=== PATIENT | male | born 1960 | race Caucasian/White ===

== ENCOUNTER 2017-03-09 15:00 | Emergency (ER) | payer MEDICARE ==
[2017-03-09 15:29] LABS: #Basophils 0.2 thou/uL (0.0-0.2); #Eosinphils 1.2 thou/uL (0.0-0.7); #Lymphocytes 3.4 thou/uL (1.20-3.40); #Monocytes 0.9 thou/uL (0.11-0.59); #Neutrophils 10.1 thou/uL (1.40-6.50); %Eosinophils 7.4 % (0.0-10.0); %Lymphocytes 21.4 % (21.0-51.0); %Monocytes 5.6 % (0.0-10.0); %Neutrophils 64.6 % (42.0-75.0); Hemoglobin 13.5 g/dL (14.0-18.0); Mean Corpuscular Hemoglobin 31.5 pg (27.0-31.0); Mean Corpuscular Volume 92.8 fl (80.0-94.0); Mean Platelet Volume 7.2 fL (7.4-10.4); Platelet Count 323 thou/uL (130-400); RBC Distribution Width 10.9 % (11.5-14.5); Red Blood Cell (RBC) Count 4.28 mill/uL (4.70-6.10); White Blood Cell (WBC) Count 15.6 thou/uL (4.8-10.8)
--- NOTE | 2017-03-09 15:38 | RAD ---
CHEST ONE VIEW: History: Chest pain. Comparison: 11-22-16 FINDINGS: Cardiac silhouette is magnified by projection. Pulmonary vasculature is upper limits of normal and ac centuated by shallow inspiration. Mediastinum is midline with post-op changes and aortic calcificatio n. Nodular densities projecting over the right chest correlate with the granuloma demonstrated on int erval CT exam. There is no lobar consolidation or evidence of pneumothorax. IMPRESSION: Chronic type findings appear stable. POS: [facility]
[2017-03-09 15:40] LABS: ALT (SGPT) 13 U/L (8-55); AST (SGOT) 17 U/L (5-34); Albumin 3.1 g/dL (3.5-5.0); Alkaline Phosphatase 89 U/L (40-150); Anion Gap 15 mmol/L (10-20); BUN (Urea Nitrogen) 39 mg/dL (8.4-25.7); Bilirubin, Total 0.2 mg/dL (0.2-1.2); CK (CPK) 267 U/L (30-200); Calc. Creatinine Clearance 0 mL/min (70-130); Calcium 9.3 mg/dL (7.8-10.44); Carbon Dioxide 19 mmol/L (22-29); Chloride 110 mmol/L (98-107); Estimated GFR-MDRD 32; Globulin 3.6 g/dL (2.4-3.5); Glucose 188 mg/dL (70-105); Potassium 4.4 mmol/L (3.5-5.1); Protein, Total 6.7 g/dL (6.0-8.3); Sodium 140 mmol/L (136-145)
[2017-03-09 15:42] LABS: CKMB 4.5 ng/mL (0-6.6); Troponin I 0.028 ng/mL (< 0.028)
[2017-03-09] MEDS ORDERED: Doxycycline Hyclate 100 MG TAB ONE (16:19)
[2017-03-09 18:24] LABS: Troponin I 0.031 ng/mL (< 0.028)
== END 2017-03-09 18:57 | disposition home or self-care (01) ==
LOC: SCSER 15:00
DX: I25.10 Atherosclerotic heart disease of native coronary artery without angina pectoris (principal); I12.9 Hypertensive chronic kidney disease with stage 1 through stage 4 chronic kidney disease, or unspecified chronic kidney disease; E11.22 Type 2 diabetes mellitus with diabetic chronic kidney disease; N18.3 Chronic kidney disease, stage 3 (moderate); E11.9 Type 2 diabetes mellitus without complications; J40 Bronchitis, not specified as acute or chronic; J32.9 Chronic sinusitis, unspecified; E78.5 Hyperlipidemia, unspecified; B19.20 Unspecified viral hepatitis C without hepatic coma; F41.9 Anxiety disorder, unspecified; F32.9 Major depressive disorder, single episode, unspecified; F17.210 Nicotine dependence, cigarettes, uncomplicated; Z76.1 Encounter for health supervision and care of foundling; Z95.1 Presence of aortocoronary bypass graft; Z79.899 Other long term (current) drug therapy; Z79.82 Long term (current) use of aspirin
CPT/HCPCS: 71045; 80053; 82553; 83880; 84484; 85025; 93005; 94760; 99406

== ENCOUNTER 2017-12-29 18:46 | Inpatient (IN) | payer MEDICARE ==
[2017-12-29] MEDS ORDERED: Furosemide 40 MG/4 ML VIAL ONE (19:54)
[2017-12-29 20:42] LABS: Troponin I 0.044 ng/mL (< 0.028)
[2017-12-29] MEDS ORDERED: Dextrose 50% Abboject 50 ML SYRINGE SLOW IVP PRN (21:30)
[2017-12-29] MEDS ORDERED: Senokot S 8.6-50 MG TAB PO PRN (21:30)
[2017-12-29] MEDS ORDERED: Dextrose 5% in Water 1,000 ML IV PRN (21:30)
[2017-12-29] MEDS ORDERED: Insulin Regular 300 UNITS/3 ML VIAL SC PRN (21:46)
[2017-12-29] MEDS ORDERED: hydrOXYzine 10 MG TAB PO PRN (21:59)
--- NOTE | 2017-12-29 22:13 | PDOC.FPRHP ---
- History of Present Illness Chief Complaint: SOB, leg swelling History of Present Illness: 57 yo M presented to [facility] ED for acute onset of BLE swelling and SOB starting yesterday. Yesterday morning he noticed bilateral lower leg swelling and felt SOB worse with exertion but no associated cough or recent orthopnea. He has a PMH of ID x1 with 5V CABG and stents x10. He denies chest pain, but has mid- back pain present at rest he has had for a a few weeks, non-exertional. States it feels different from prior ID episodes. No associated diaphoresis, nausea. He also has CKD4 in which he follows with Dr. Coronado. Is not on HD and not on lasix at this point. Dr. Coronado was notified from the ED who recommended continued diuresing with lasix and overnight observation. In addition, he was given the dx of pancreatitis in the [facility] ED with a lipase of 262. Patient endorses some diffuse abdominal pain, but no nausea and good po tolerance. No prior pancreatitis episodes in the past. ED Course: IV Lasix 40mg x1 - Allergies/Adverse Reactions Allergies Allergy/AdvReac Type Severity Reaction Status Date / Time No Known Allergies Allergy Verified 12/30/17 00:19 - Home Medications Medication Instructions Recorded Confirmed Type Amlodipine [Norvasc] 5 mg PO QPM 12/30/17 12/30/17 History Amlodipine [Norvasc] 10 mg PO QAM 12/30/17 12/30/17 History Aspirin [Aspirin Chewable] 81 mg PO DAILY 12/30/17 12/30/17 History Atorvastatin Calcium 40 mg PO DAILY 12/30/17 12/30/17 History Gabapentin 300 mg PO DAILY 12/30/17 12/30/17 History Metoprolol Succinate 25 mg PO DAILY 12/30/17 12/30/17 History [place]-3 Fatty Acids/Fish Oil 1 cap PO DAILY 12/30/17 12/30/17 History [[place] 3 1,000 mg Softgel] Sodium Bicarbonate 325 mg PO DAILY 12/30/17 12/30/17 History glipiZIDE [glipiZIDE ER] 5 mg PO DAILY 12/30/17 12/30/17 History - History PMHx:ID x1, DM, CKD4, HTN, COPD, HLD, Hep C PSHx: 5V CABG, Stents x1, cataracts, abdominal hernia repair, cholecstectomy FHx:non contributory Social: Former smoker (last cigarette this past Tuesday), occasional EtOH, former IV drug user - Review of Systems General: reports: weight/appetite/sleep changes. denies: fever/chills Eyes: reports: vision changes. denies: eye pain ENT: denies: nasal congestion, rhinorrhea Respiratory: reports: shortness of breath. denies: cough Cardiovascular: reports: edema, orthopnea. denies: chest pain Gastrointestinal: reports: abdominal pain. denies: nausea, vomiting Genitourinary: denies: incontinence, dysuria Skin: reports: rashes, itching Musculoskeletal: denies: tenderness, stiffness Neurological: denies: syncope, seizure Psychological: reports: anxiety, depression - Vital signs BP: [170/86] HR: [47] RR: [17] Tmax: [98.3] Pox: [98]% on [RA] Wt: [98] - Physical Exam Constitutional: NAD, awake, alert and oriented HEENT: normocephalic and atraumatic, PERRLA, EOMI, conjunctiva clear Neck: supple, FROM Chest: no-tender to palpation Heart: RRR, normal S1/S2 Lungs: CTAB, no respiratory distress, good air movement Abdomen: soft -Abdomen: ventral hernia at upper abdomen, non tender to palpation. diffuse, mild pain in all quadrants, not exceptionally tender to palpation. no peritoneal signs. Musculoskeletal: normal structure, normal tone -Musculoskeletal: BLE: 2+ pitting edema from feet and up to lower back Neurological: no focal deficit Skin: capillary refill <2 seconds, other -Skin: pruritis around neck and near axillae with minor exocriations from pruritis Heme/Lymphatic: no unusual bruising or bleeding Psychiatric: other (depressed affect) FMR H&P: Results - Labs Result Diagrams: 12/30/17 04:12 12/30/17 04:12 - Radiology Interpretation Chest x-ray Status: image reviewed by me, report reviewed by me FMR H&P: A/P - Problem List (1) Edema Current Visit: Yes Status: Acute Code(s): R60.9 - EDEMA, UNSPECIFIED (2) CKD (chronic kidney disease) stage 4, GFR 15-29 ml/min Current Visit: Yes Status: Acute Code(s): N18.4 - CHRONIC KIDNEY DISEASE, STAGE 4 (SEVERE) (3) Sinus bradycardia Current Visit: Yes Status: Acute Code(s): R00.1 - BRADYCARDIA, UNSPECIFIED (4) Hypertension Current Visit: Yes Status: Acute Code(s): I10 - ESSENTIAL (PRIMARY) HYPERTENSION (5) Diabetes Current Visit: Yes Status: Acute Code(s): E11.9 - TYPE 2 DIABETES MELLITUS WITHOUT COMPLICATIONS (6) COPD (chronic obstructive pulmonary disease) Current Visit: Yes Status: Acute (7) Depression Current Visit: Yes Status: Acute Code(s): F32.9 - MAJOR DEPRESSIVE DISORDER , SINGLE EPISODE, UNSPECIFIED (8) Pruritic rash Current Visit: Yes Status: Acute Code(s): L28.2 - OTHER PRURIGO (9) History of ID (myocardial infarction) Current Visit: Yes Status: Acute Code(s): I25.2 - OLD MYOCARDIAL INFARCTION (10) History of heart artery stent Current Visit: Yes Status: Acute Code(s): Z95.5 - PRESENCE OF CORONARY ANGIOPLASTY IMPLANT AND GRAFT (11) CAD (coronary artery disease) Current Visit: Yes Status: Acute Code(s): I25.10 - ATHSCL HEART DISEASE OF [place] CORONARY ARTERY W/O ANG PCTRS (12) HLD (hyperlipidemia) Current Visit: Yes Status: Acute Code(s): E78.5 - HYPERLIPIDEMIA, UNSPECIFIED (13) Elevated lipase Current Visit: Yes Status: Acute Code(s): R74.8 - ABNORMAL LEVELS OF OTHER SERUM ENZYMES - Plan 57 yo M with extensive cardiac history and CKD4 with new onset peripheral edema #Suspected CHF -2/2 acute renal failure vs. ischemic cardiomyopathy -No official prior dx of CHF but today elevated BNP from baseline (1091 from 397 ). Will obtain echo in AM -Consider ischemic cardiomyopathy etiology given cardiac history, indeterminate trop x1, will continue to trend -Also consider renal etiology with FAISAL on CKD -Dr. Coronado contacted from ED, but may need to place official consult for further recs -Continue diuresing with IV lasix BID & monitor with strict I/O, daily weights -Admit to tele/obs #Elevated Lipase -unlikely acute pancreatitis given benign abd exam. there may be a component of chronic pancreatitis -obtained FLP and UDS for etiology workup #Sinus bradycardia -asymptomatic, monitor with tele -no intervention needed at this time #DM2 -sliding scale, accuchecks, home meds #HTN -hydralzine PRN #Pruritic rash -atarax for pruritis -can f/u outpatient #HLD -continue home meds #COPD -non-hypoxic on RA -duonebs and oxygen PRN #Depression -due to recent social stressors -can consider starting SSRI #Hepatitis C -per patient taking anti-Hep C medication -will hold off check hep panel for now Discussed with Dr. Fair Disposition/LOS: <2 midnights FMR H&P: Upper Level - Pertinent history 57M p/w lower extremity edema and SOB. He has gradually noticed bilateral swelling of his lower extremities since being taken off of Lasix roughly 6 months ago. He noticed a worsening over the last 24 hours which prompted his ED visit. He endorses orthopnea and BRUCE for several months. He has no formal diagnosis of congestive heart failure. He saw his bowling floor desk clerk, Dr. Christianson, 6 months ago and no changes were made to his medications at that time. PMH: CAD s/p 5V CABG and numerous stents, CKDIV, DMII, HTN, HLD, Hep C ED: Lasix 40 mg IV - Pertinent findings Vitals: 98.5F 44 bpm 14 breaths/m 97% on RA 165/88 mmHg PE: Gen: A&Ox3 HEENT: NC/AT CV: RRR; no m/r/g Pulm: CTA-B Abd: soft; non tender to palpation; no guarding Extremities: bilateral LE edema to groin Skin: no rashes or lesions WBC: 12.4 BUN/Cr: 59/4.12 Trop: negative x 3 BNP: 1091 Lipase: 262 - Plan Date/Time: 12/29/17 2210 Suspected HFrEF exacerbation: no formal diagnosis of CHF per patient and no history of valvular disease, but given his elevated BNP and clinical picture we will treat accordingly. Strict I/Os and daily weights. TTE in the morning. He is s/p one dose of IV Lasix in the ED, and we will continue BID. EKG is normal and troponins are negative. Low suspicion for DVT/PE given Wells score of 0. CXR shows cardiomegaly. Morphine, oxygen, and nitro PRN. Cardiology consult in the morning for new onset CHF. FAISAL on CKDIV: decline in GFR compared to previous visits. Will monitor with daily labs. Nephrology has been consulted and we will await further recommendations. DMII: mild SSI with accuchecks qACHS HTN: continue home medications. PRN hydralazine CAD: Morphine, oxygen, and nitrates PRN HLD: continue home medications I, Chato Landry, have evaluated this patient and agree with findings/plan as outlined by epidemiology internship resident. Pertinent changes/additions are listed here. Attending Addendum - Attending Addendum Date/Time: 12/30/17 9783 I personally evaluated the patient in the ER at time of admission and discussed the management with Dr. Maicas I agree with the History, Examination, Assessment and Plan documented above.
[2017-12-29 23:41] LABS: Troponin I 0.049 ng/mL (< 0.028)
[2017-12-30] MEDS ORDERED: hydrALAZINE 20 MG/ML VIAL SLOW IVP PRN (01:20)
[2017-12-30] MEDS ORDERED: Nitroglycerin 0.4 MG TAB (25 Tab Bottle) SL PRN (01:32)
[2017-12-30 04:36] LABS: #Basophils 0.1 thou/uL (0.0-0.2); #Lymphocytes 2.4 thou/uL (1.20-3.40); #Monocytes 0.7 thou/uL (0.11-0.59); #Neutrophils 6.4 thou/uL (1.40-6.50); %Basophils 0.7 % (0.0-1.0); %Eosinophils 9.1 % (0.0-10.0); %Lymphocytes 23.1 % (21.0-51.0); %Monocytes 6.5 % (0.0-10.0); %Neutrophils 60.6 % (42.0-75.0); Hemoglobin 12.7 g/dL (14.0-18.0); Mean Corpuscular HGB CONC 32.8 g/dL (32.0-36.0); Mean Corpuscular Hemoglobin 31.4 pg (27.0-31.0); Mean Corpuscular Volume 95.8 fL (78.0-98.0); Mean Platelet Volume 8.1 fL (7.4-10.4); Platelet Count 222 thou/uL (130-400); RBC Distribution Width 11.7 % (11.5-14.5); Red Blood Cell (RBC) Count 4.04 mill/uL (4.70-6.10); White Blood Cell (WBC) Count 10.6 thou/uL (4.8-10.8)
[2017-12-30 04:47] VITALS: BMI 31.1
[2017-12-30 04:49] LABS: Amphetamine Not Detected (NotDetected); Barbiturates Screen Not Detected (NotDetected); Benzodiazepine Screen Not Detected (NotDetected); Cocaine Metabolite Screen Not Detected (NotDetected); Medtox Control Line Valid? VALID (VALID); Medtox Reader # READER 4; Methadone Not Detected (NotDetected); Methamphetamine Not Detected (NotDetected); Opiate Screen Not Detected (NotDetected); Oxycodone Screen Not Detected (NotDetected); Phencyclidine (PCP) Not Detected (NotDetected); THC/Cannabinoid Screen Not Detected (NotDetected); Tricyclic Screen Not Detected (NotDetected)
[2017-12-30 04:51] LABS: ALT (SGPT) 15 U/L (8-55); AST (SGOT) 11 U/L (5-34); Albumin 2.8 g/dL (3.5-5.0); Alkaline Phosphatase 85 U/L (40-150); Anion Gap 13 mmol/L (10-20); BUN (Urea Nitrogen) 38 mg/dL (8.4-25.7); Bilirubin, Total 0.3 mg/dL (0.2-1.2); Calc. Creatinine Clearance 31 mL/min (70-130); Calcium 8.1 mg/dL (7.8-10.44); Carbon Dioxide 19 mmol/L (22-29); Cardiac Risk 2.7 (Less than 4.5); Chloride 110 mmol/L (98-107); Cholesterol 161 mg/dl (< 200 Desired); Estimated GFR-MDRD 17; Globulin 2.9 g/dL (2.4-3.5); Glucose 194 mg/dL (70-105); HDL Cholesterol 60 mg/dL (>60 Neg Risk); LDL Cholesterol, Calculated 76 mg/dL; Potassium 4.2 mmol/L (3.5-5.1); Protein, Total 5.7 g/dL (6.0-8.3); Sodium 138 mmol/L (136-145); Triglycerides 124 mg/dL (Less than 150)
[2017-12-30 05:49] LABS: Magnesium 1.9 mg/dL (1.6-2.6)
[2017-12-30] MEDS: Furosemide 40 MG/4 ML VIAL SLOW IVP SCH ×2 (05:54→13:33)
--- NOTE | 2017-12-30 06:54 | PDOC.FM ---
- Subjective Subjective: Patient doing well this morning. He states that his shortness of breath has greatly improved. He denies chest pain, palpitations. No complaints at this time. - Objective MAR Reviewed: Yes Vital Signs & Weight: Vital Signs (12 hours) Temp Pulse Resp BP Pulse Ox 12/30/17 04:00 97.8 F 46 L 19 174/81 H 96 12/29/17 23:22 98.4 F 48 L 20 171/85 H 98 12/29/17 21:46 96 Weight Weight 98.611 kg I&O: 12/28/17 12/29/17 12/30/17 06:59 06:59 06:59 Output Total 720 Balance -720 Result Diagrams: 12/30/17 04:12 12/30/17 04:12 <Serenity Sy - Last Filed: 12/30/17 14:32> - Objective Vital Signs & Weight: Vital Signs (12 hours) Temp Pulse Resp BP BP Pulse Ox 01/02/18 09:21 52 L 154/74 H 01/02/18 07:48 98.6 F 52 L 16 154/74 H 96 01/02/18 03:48 98.1 F 60 13 166/78 H 96 Weight Weight 93.894 kg I&O: 01/01/18 01/02/18 01/03/18 06:59 06:59 06:59 Intake Total 960 Output Total 2500 Balance -1540 Result Diagrams: 12/30/17 04:12 01/02/18 04:44 <Sid Martinez - Last Filed: 01/02/18 10:49> Phys Exam - Physical Examination Constitutional: NAD Respiratory: clear to auscultation bilateral Cardiovascular: RRR Gastrointestinal: soft moderate epigastric tenderness to palpation Psychiatric: normal affect Deviation from normal: 1+ bilateral lower extremity pitting edema. <Serenity Sy - Last Filed: 12/30/17 14:32> Dx/Plan (1) CAD (coronary artery disease) Code(s): I25.10 - ATHSCL HEART DISEASE OF [place] CORONARY ARTERY W/O ANG PCTRS Status: Acute (2) CKD (chronic kidney disease) stage 4, GFR 15-29 ml/min Code(s): N18.4 - CHRONIC KIDNEY DISEASE, STAGE 4 (SEVERE) Status: Acute (3) Diabetes Code(s): E11.9 - TYPE 2 DIABETES MELLITUS WITHOUT COMPLICATIONS Status: Acute (4) Edema Code(s): R60.9 - EDEMA, UNSPECIFIED Status: Acute (5) Elevated lipase Code(s): R74.8 - ABNORMAL LEVELS OF OTHER SERUM ENZYMES Status: Acute (6) HLD (hyperlipidemia) Code(s): E78.5 - HYPERLIPIDEMIA, UNSPECIFIED Status: Acute (7) Hypertension Code(s): I10 - ESSENTIAL (PRIMARY) HYPERTENSION Status: Acute (8) Sinus bradycardia Code(s): R00.1 - BRADYCARDIA, UNSPECIFIED Status: Acute - Plan Plan: Acute dyspnea, from volume overload secondary to CHF vs CKD - IV diuresis, strict I/Os. daily weights, - will request records from cardiology. - may consider cards consult if Echo appears to be worse from prior. Acute on chronic kidney disease - likely related to cardiorenal syndrome due to improvement with lasix. - will continue to monitor. - Nephro on board. Coronary artery disease - s/p CABG Sinus bradycardia - pt is asymptomatic. continue to monitor. Diabetes mellitus - will resume home meds - AC/HS accuchecks Elevated lipase - likely related to CKD. - no s/s of acute pancreatitis Hypertension - will resume home meds Hyperlipidemia - will resume home meds. <Serenity Sy - Last Filed: 12/30/17 14:32> Attending Addendum - Attending Addendum Date/Time: 01/02/18 1048 I personally evaluated the patient and discussed the management with Dr. Sy on 12/30/17. I agree with the History, Examination, Assessment and Plan documented above with any addition or exceptions noted below. <Sid Martinez - Last Filed: 01/02/18 10:49>
[2017-12-30 07:15] LABS: Hemoglobin A1c 6.4 % (4.0-6.0)
--- NOTE | 2017-12-30 07:40 | CON ---
DATE OF CONSULTATION: 12/29/2017 CONSULTING PHYSICIAN: REASON FOR CONSULTATION: Acute kidney injury. REASON FOR ADMISSION: Shortness of breath. 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 The patient was also having kidney injury and Nephrology was consulted. He denies any chest pain. Mild shortne ss of breath reported and leg swelling for the last 2-3 days and holding his Lasix for few days now. No nausea, vomiting, diarrhea reported. No skin rash. No fevers. PAST MEDICAL HISTORY: Positive for coronary artery disease, chronic kidney disease stage 4, type 2 d iabetes, hypertension, and hyperlipidemia. PAST SURGICAL HISTORY: CABG, cholecystectomy, and hernia repair. HOME MEDICATIONS: The list is pending. ALLERGIES: No known drug allergies. SOCIAL HISTORY: He quit smoking and illicit drug abuse in the past. No smoking, alcohol or illicit drug abuse reported. FAMILY HISTORY: No history of kidney disease. REVIEW OF SYSTEMS: The following complete review of systems was negative, unless otherwise mentioned in the HPI or below: Constitutional: Weight loss or gain, ability to conduct usual activities. Ski n: Rash, itching. Eyes: Double vision, pain. ENT/Mouth: Nose bleeding, neck stiffness, pain, tend erness. Cardiovascular: Palpitations, dyspnea on exertion, orthopnea. Respiratory: Shortness of b reath, wheezing, cough, hemoptysis, fever or night sweats. Gastrointestinal: Poor appetite, abdomin al pain, heartburn, nausea, vomiting, constipation, or diarrhea. Genitourinary: Urgency, frequency, dysuria, nocturia. Musculoskeletal: Pain, swelling. Neurologic/Psychiatric: Anxiety, depression. Allergy/Immunologic: Skin rash, bleeding tendency. PHYSICAL EXAMINATION: GENERAL: This is a well-built male in no apparent distress. VITAL SIGNS: Temperature 98.3, pulse 49, respiratory rate 18, blood pressure 157/72. HEENT: Atraumatic, normocephalic. Oral mucosa is dry. NECK: Supple, no masses. HEART: S1, S2 heard, bradycardia. RESPIRATORY: Clear bilaterally. GI: Abdomen is soft. MUSCULOSKELETAL: 1-2+ edema. DERMATOLOGIC: No skin rash. NEUROLOGIC: Alert, awake. PSYCHIATRIC: Mood and affect normal. LABORATORY DATA: Hemoglobin is 13.2, potassium is 4.9, BUN is 59, creatinine is 4.1, albumin is 3.1. ASSESSMENT AND PLAN: 1. Acute kidney injury on chronic kidney disease, stage 4, most likely cardiorenal syndrome. We mike l monitor. Okay with IV Lasix for now. 2. Elevated BNP. 3. Mild fluid overload. 4. Elevated liver enzymes. 5. Metabolic acidosis. 6. Anemia, mild. 7. Hypertension, stable. 8. Okay with IV Lasix, close monitoring of renal function and electrolytes. 9. Hyperkalemia, better. We will monitor.
[2017-12-30] MEDS: Amlodipine 10 MG TAB PO SCH (09:05)
[2017-12-30] MEDS: Pantoprazole 40 MG VIAL IVP SCH (09:05)
[2017-12-30] MEDS: Sodium Bicarbonate Tab 325 MG TAB PO SCH (09:05)
[2017-12-30] MEDS: Atorvastatin Calcium 40 MG TAB PO SCH (09:05)
[2017-12-30] MEDS: Gabapentin 300 MG CAP PO SCH (09:05)
[2017-12-30] MEDS: Fish Oil 1,000 MG CAP PO SCH (09:06)
[2017-12-30] MEDS: HumaLOG 300 UNITS/3 ML VIAL SC PRN (18:03)
--- NOTE | 2017-12-30 20:56 | PRG ---
DATE OF SERVICE: 12/30/2017 SUBJECTIVE: Patient was seen and examined at bedside and overnight events noted. Patient denies any shortness of breath or chest pain or palpitation. No history of nausea or vomiting or diarrhea or f ever or chills or cramps. OBJECTIVE: GENERAL: This is a well-built male, in no apparent distress. VITAL SIGNS: Temperature 97.8, pulse 57, respiratory rate 18, blood pressure 147/68. HEENT: Atraumatic, normocephalic. Oral mucosa is moist. NECK: Supple. CARDIOVASCULAR: S1, S2 heard. Rate and rhythm regular. RESPIRATORY: Clear to auscultation. GASTROINTESTINAL: Abdomen is soft. MUSCULOSKELETAL: No tenderness. No edema. DERMATOLOGIC: No skin rash. NEUROLOGIC: Alert and awake and oriented x3. No focal neurologic deficits. Moving all the extremiti es. PSYCHIATRIC: Mood and affect normal. LABORATORY DATA: Potassium is 4.2, BUN 30, creatinine is 3.7. ASSESSMENT AND PLAN: 1. Acute kidney injury, chronic kidney stage IV. Renal function with improvement with Lasix. Most likely cardiorenal syndrome. Agree with Cardiology evaluation. 2. Elevated liver enzymes. 3. Metabolic acidosis, stable. 4. Hypertension. 5. Cardiorenal syndrome. 6. Edema, better. 7. Mild anemia. 8. Cautious administration of diuretics with close monitoring. We will have to reduce the dose of d iuretic tomorrow. We will follow.
[2017-12-30] MEDS ORDERED: Amlodipine 5 MG TAB PO SCH (21:00)
[2017-12-31 05:27] LABS: ALT (SGPT) 9 U/L (8-55); AST (SGOT) 9 U/L (5-34); Albumin 2.5 g/dL (3.5-5.0); Alkaline Phosphatase 79 U/L (40-150); Anion Gap 12 mmol/L (10-20); BUN (Urea Nitrogen) 55 mg/dL (8.4-25.7); Bilirubin, Total 0.2 mg/dL (0.2-1.2); Calc. Creatinine Clearance 28 mL/min (70-130); Calcium 7.7 mg/dL (7.8-10.44); Carbon Dioxide 22 mmol/L (22-29); Chloride 109 mmol/L (98-107); Estimated GFR-MDRD 16; Globulin 2.7 g/dL (2.4-3.5); Glucose 146 mg/dL (70-105); Potassium 4.3 mmol/L (3.5-5.1); Protein, Total 5.2 g/dL (6.0-8.3); Sodium 139 mmol/L (136-145)
[2017-12-31] MEDS: Furosemide 40 MG/4 ML VIAL SLOW IVP SCH (05:55)
--- NOTE | 2017-12-31 05:55 | PDOC.FM ---
- Subjective Subjective: NAEO. Patient states he feels much better this AM. Is very frustrated at to why no player services representative has seen him yet. Explained to him that we take care of HF patients frequently an consulting cardiology would likely not change any plans with our management. Patient states he would like his disease process explained to him in detail so that he can understand exactly how this happened before he leaves the hospital as he is afraid of this happening again. - Objective MAR Reviewed: Yes Vital Signs & Weight: Vital Signs (12 hours) Temp Pulse Resp BP BP Pulse Ox 12/31/17 03:10 98.4 F 54 L 20 138/66 96 12/30/17 23:39 98.7 F 51 L 20 149/73 H 97 12/30/17 20:15 55 L 171/80 H 12/30/17 19:35 98.2 F 55 L 20 171/80 H 96 Weight Weight 96.933 kg I&O: 12/29/17 12/30/17 12/31/17 06:59 06:59 06:59 Intake Total 304 250 Output Total 720 2500 Balance -416 -8437 Result Diagrams: 12/30/17 04:12 12/31/17 04:23 <Kim Alejandro - Last Filed: 12/31/17 12:35> - Objective Vital Signs & Weight: Vital Signs (12 hours) Temp Pulse Resp BP Pulse Ox 12/31/17 20:26 99.4 F 51 L 16 143/67 H 95 12/31/17 16:19 98.7 F 52 L 17 143/72 H 96 12/31/17 11:02 98.6 F 51 L 18 134/65 96 Weight Weight 96.933 kg I&O: 12/30/17 12/31/17 01/01/18 06:59 06:59 05:59 Intake Total 304 1610 480 Output Total 720 3700 575 Balance -416 -9756 -95 Result Diagrams: 12/30/17 04:12 12/31/17 04:23 <Michelle Cooper - Last Filed: 12/31/17 22:59> Phys Exam - Physical Examination Constitutional: NAD Neck: supple, full ROM Respiratory: no wheezing, no rales, no rhonchi, clear to auscultation bilateral Cardiovascular: RRR, no significant murmur Musculoskeletal: edema present Neurological: non-focal, normal sensation, moves all 4 limbs Psychiatric: normal affect, A&O x 3 Skin: no rash, normal turgor <Kim Alejandro - Last Filed: 12/31/17 12:35> Dx/Plan (1) CAD (coronary artery disease) Code(s): I25.10 - ATHSCL HEART DISEASE OF [place] CORONARY ARTERY W/O ANG PCTRS Status: Chronic (2) CKD (chronic kidney disease) stage 4, GFR 15-29 ml/min Code(s): N18.4 - CHRONIC KIDNEY DISEASE, STAGE 4 (SEVERE) Status: Chronic (3) COPD (chronic obstructive pulmonary disease) Status: Chronic (4) Depression Code(s): F32.9 - MAJOR DEPRESSIVE DISORDER, SINGLE EPISODE, UNSPECIFIED Status : Chronic (5) Diabetes Code(s): E11.9 - TYPE 2 DIABETES MELLITUS WITHOUT COMPLICATIONS Status: Chronic Qualifiers: Diabetes mellitus type: type 2 Diabetes mellitus complication status: with kidney complications Diabetes mellitus complication detail: with chronic kidney disease Chronic kidney disease stage: stage 4 (severe) (6) Edema Code(s): R60.9 - EDEMA, UNSPECIFIED Status: Acute Qualifiers: Edema type: localized Qualified Code(s): R60.0 - Localized edema (7) Elevated lipase Code(s): R74.8 - ABNORMAL LEVELS OF OTHER SERUM ENZYMES Status: Acute (8) HLD (hyperlipidemia) Code(s): E78.5 - HYPERLIPIDEMIA, UNSPECIFIED Status: Chronic (9) History of CT (myocardial infarction) Code(s): I25.2 - OLD MYOCARDIAL INFARCTION Status: Chronic (10) History of coronary artery bypass graft x 3 Code(s): Z95.1 - PRESENCE OF AORTOCORONARY BYPASS GRAFT Status: Chronic (11) History of heart artery stent Code(s): Z95.5 - PRESENCE OF CORONARY ANGIOPLASTY IMPLANT AND GRAFT Status: Chronic (12) Hypertension Code(s): I10 - ESSENTIAL (PRIMARY) HYPERTENSION Status: Chronic (13) Pruritic rash Code(s): L28.2 - OTHER PRURIGO Status: Acute (14) Sinus bradycardia Code(s): R00.1 - BRADYCARDIA, UNSPECIFIED Status: Chronic - Plan Plan: Acute dyspnea, from volume overload secondary to CHF vs CKD - Consider changing to PO lasix today 2/2 worsening renal function overnight. Will continue strict I/Os & daily weights. - Requested records from cardiology. - Echo showed HFpEF of 50-55% w/ diastolic dysfunction. - Will consult cards today per patient's request. Acute on chronic kidney disease stage IV - Likely related to cardiorenal syndrome due to initial improvement with lasix. - However, Cr slightly worse this AM at 3.97. Will hold AM IV lasix dose and consider switching to PO BID rather than IV today. - Will continue to monitor. - Nephro on board. Appreciate recs. Coronary artery disease - Aware, s/p CABG. - Will continue home meds. Sinus bradycardia - Patient is asymptomatic. Will continue to monitor. Diabetes mellitus II - A1c 6.4 on admission. - Will continue home meds & AC/HS accuchecks. Elevated lipase - Likely related to CKD and only mildly elevated at just over 200. - No s/s of acute pancreatitis - UDS negative. Hypertension - Will continue home meds but will consider adjusting nighttime dose as BP stayed in 160-170s systolic overnight even w/ 2500mL of UO yesterday. Hyperlipidemia - Will continue home meds. <Kim Alejandro - Last Filed: 12/31/17 12:35> Attending Addendum - Attending Addendum Date/Time: 12/31/17 9850 I personally discussed the management with Dr. Alejandro I agree with the History, Examination, Assessment and Plan documented above with any addition or exceptions noted below. 57 yo male with history of CAD and HFrEF admitted for acute exacerbation HD#2 Patient notes improvement in symptoms since admission VS reviewed. Labs reviewed. Imaging reviewed. 1. HFrEF: Repeat ECHO with improved EF. Diuresis improved symptoms. Needs referral to heart failure clinic. Will discuss cardiac meds with cards -- BB, ASA, Statin. Lasix as needed. Monitor daily wts and I/Os. 2. CAD: ASA, statin. Needs BB. Trop stable. 3. HTN: Adjust CCB dose. 4. Bradycardia: Cards consulted. Currently asymptomatic but multiple risk factors especially with ischemic cardiomyopathy and CKD. Not able to tolerated BB at this time. 5. CKDIV: Nephro following. Will need to monitor BUN/Cr/GFR closely. MicheleMD <Michelle Cooper - Last Filed: 12/31/17 22:59>
[2017-12-31] MEDS: Amlodipine 10 MG TAB PO SCH (08:23)
[2017-12-31] MEDS: Atorvastatin Calcium 40 MG TAB PO SCH ×2 (08:23→20:29)
[2017-12-31] MEDS: Sodium Bicarbonate Tab 325 MG TAB PO SCH (08:23)
[2017-12-31] MEDS: Fish Oil 1,000 MG CAP PO SCH (08:23)
[2017-12-31] MEDS: Gabapentin 300 MG CAP PO SCH ×2 (08:23→20:29)
[2017-12-31] MEDS: Pantoprazole 40 MG VIAL IVP SCH (08:23)
--- NOTE | 2017-12-31 12:28 | CON ---
DATE OF CONSULTATION: 12/31/2017 REASON FOR CONSULTATION: Shortness of breath and lower extremity edema. HISTORY OF PRESENT ILLNESS: Mr. Grande is a very pleasant 57-year-old gentleman with a history of c oronary artery disease, status post stent placement. He underwent coronary angiography in [place] i 2016. He was found to have 2/4 grafts patent. His circumflex artery and LAD were 100% occluded. His WEAVER to the LAD and saphenous graft to the OM were patent. He did have 50% stenosis in the mid r ight coronary artery and 80% stenosis in the distal right coronary artery. Medical therapy was recom mended. I do not have films to review. He states over the last several days, he has had increased shortness of breath and lower extremity ed nikko. No chest pain or pressure noted. He does not check his weights on a daily basis. He has stopp ed Lasix. PAST MEDICAL HISTORY: CAD status post stent placement and bypass surgery, diabetes mellitus, hyperte nsion, PVD, tobacco abuse, chronic kidney disease, hypertension, hyperlipidemia. ALLERGIES: ADHESIVE TAPE. HOME MEDICATIONS: Include aspirin, metoprolol, glipizide, gabapentin, atorvastatin, fish oil. REVIEW OF SYSTEMS: Ten-point review of systems reviewed and as above, otherwise negative. PHYSICAL EXAMINATION: GENERAL: Patient is a pleasant male who is in no acute distress. The patient appears his stated age . VITAL SIGNS: Blood pressure 160/76, pulse 81, temperature afebrile. NEUROLOGIC: The patient is alert and oriented times 3 with no focal neurologic deficits. HEENT: Sclerae without icterus. Mouth has moist mucous membranes with normal pallor. NECK: No JVD. Carotid upstroke brisk. No bruits bilaterally. LUNGS: Clear to auscultation with unlabored respirations. BACK: No scoliosis or kyphosis. CARDIAC: Regular rate and rhythm with normal S1 and S2. No S3 or S4 noted. No significant rubs, mu rmurs, thrills, or gallops noted throughout the precordium. PMI is not displaced. There is no lorenza ternal heave. ABDOMEN: Soft, nontender, nondistended. No peritoneal signs present. No hepatosplenomegaly. No ab normal striae. EXTREMITIES: 1 to 2+ pitting edema. SKIN: No gross abnormalities. PERTINENT LABORATORY DATA: Hemoglobin 12.7, creatinine 3.97, GFR 16, chloride 109. IMPRESSION: 1. Shortness of breath. 2. Lower extremity edema. 3. Coronary artery disease. 4. Status post bypass surgery. 5. Cardiomyopathy with last left ventricular ejection fraction 40%-45%. RECOMMENDATIONS: We will decrease amlodipine from 50 mg q.a.m. to 10 mg q.a.m. If there is no benef it, to increasing to 15 mg. Continue aspirin, atorvastatin. He is also placed on Lasix, but may nee d to be watched closely given creatinine. Would need to consult with Nephrology. He likely has card iorenal syndrome given history of CAD with LVEF of 40%-45% and a creatinine of 3.5. At this point, zee aguirre feels much better after Lasix yesterday.
--- NOTE | 2017-12-31 14:46 | PRG ---
DATE OF SERVICE: 12/31/2017. SUBJECTIVE: Patient was seen and examined at bedside and overnight events noted. Patient denies any shortness of breath or chest pain or palpitation. No history of nausea or vomiting or diarrhea or f ever or chills or cramps. OBJECTIVE: GENERAL: This is a well-built male in no apparent distress. VITAL SIGNS: Temperature 96, pulse 51, respiratory rate 18, blood pressure 134/65. HEENT: Atraumatic, normocephalic. Oral mucosa is moist. NECK: Supple. CARDIOVASCULAR: S1, S2 heard. Rate and rhythm regular. RESPIRATORY: Clear to auscultation. GASTROINTESTINAL: Abdomen is soft. MUSCULOSKELETAL: No tenderness, no edema. DERMATOLOGIC: No skin rash. NEUROLOGIC: Alert and awake and oriented x3. No focal neurologic deficits. Moving all the extremit ies. PSYCHIATRIC: Mood and affect normal. LABORATORY DATA: Potassium is 4.3, BUN is 55, creatinine is 3.9. ASSESSMENT AND PLAN: 1. Acute kidney injury on chronic kidney disease stage 4, stable. 2. Cardiorenal syndrome. Agree with stopping the IV Lasix. Okay with Lasix 40 mg p.o. daily starti ng tomorrow morning. 3. Metabolic acidosis, stable. 4. Hypertension. 5. Edema. 6. Anemia. 7. Okay with Lasix 40 mg p.o. daily, we will put the orders.
[2017-12-31] MEDS: HumaLOG 300 UNITS/3 ML VIAL SC PRN (20:54)
--- NOTE | 2018-01-01 05:54 | PDOC.FM ---
- Subjective Subjective: Patient's HR dropped as low as 43 overnight but patient was sleeping at the time and asymptomatic. Patient states he feels well this AM. Says his swelling has noticeably improved and has much more energy. - Objective MAR Reviewed: Yes Vital Signs & Weight: Vital Signs (12 hours) Temp Pulse Resp BP Pulse Ox 01/01/18 05:13 94 L 01/01/18 03:40 98.2 F 68 12 158/68 H 94 L 12/31/17 20:26 99.4 F 51 L 16 143/67 H 95 Weight Weight 94.064 kg I&O: 12/30/17 12/31/17 01/01/18 06:59 06:59 05:59 Intake Total 304 1610 960 Output Total 720 3700 1275 Balance -416 -2090 -315 Result Diagrams: 12/30/17 04:12 01/01/18 04:28 <Kim Alejandro - Last Filed: 01/01/18 11:03> - Objective Vital Signs & Weight: Vital Signs (12 hours) Temp Pulse Resp BP Pulse Ox 01/01/18 05:13 94 L 01/01/18 03:40 98.2 F 68 12 158/68 H 94 L Weight Weight 94.064 kg I&O: 12/31/17 01/01/18 01/02/18 07:59 06:59 06:59 Intake Total Output Total Balance Result Diagrams: 12/30/17 04:12 01/01/18 04:28 <Michelle Cooper - Last Filed: 01/01/18 19:07> Phys Exam - Physical Examination Constitutional: NAD HEENT: moist MMs Neck: supple, full ROM Respiratory: no wheezing, no rales, no rhonchi Cardiovascular: no significant murmur bradycardic w/ regular rhythm Gastrointestinal: positive bowel sounds Musculoskeletal: pulses present, edema present trace edema in B/L LEs Neurological: non-focal, normal sensation, moves all 4 limbs Psychiatric: normal affect, A&O x 3 Skin: no rash, normal turgor <Kim Alejandro - Last Filed: 01/01/18 11:03> Dx/Plan (1) CAD (coronary artery disease) Code(s): I25.10 - ATHSCL HEART DISEASE OF [place] CORONARY ARTERY W/O ANG PCTRS Status: Chronic (2) CKD (chronic kidney disease) stage 4, GFR 15-29 ml/min Code(s): N18.4 - CHRONIC KIDNEY DISEASE, STAGE 4 (SEVERE) Status: Chronic (3) COPD (chronic obstructive pulmonary disease) Status: Chronic (4) Depression Code(s): F32.9 - MAJOR DEPRESSIVE DISORDER, SINGLE EPISODE, UNSPECIFIED Status : Chronic (5) Diabetes Code(s): E11.9 - TYPE 2 DIABETES MELLITUS WITHOUT COMPLICATIONS Status: Chronic Qualifiers: Diabetes mellitus type: type 2 Diabetes mellitus complication status: with kidney complications Diabetes mellitus complication detail: with chronic kidney disease Chronic kidney disease stage: stage 4 (severe) (6) Edema Code(s): R60.9 - EDEMA, UNSPECIFIED Status: Acute Qualifiers: Edema type: localized Qualified Code(s): R60.0 - Localized edema (7) Elevated lipase Code(s): R74.8 - ABNORMAL LEVELS OF OTHER SERUM ENZYMES Status: Acute (8) HLD (hyperlipidemia) Code(s): E78.5 - HYPERLIPIDEMIA, UNSPECIFIED Status: Chronic (9) History of IA (myocardial infarction) Code(s): I25.2 - OLD MYOCARDIAL INFARCTION Status: Chronic (10) History of coronary artery bypass graft x 3 Code(s): Z95.1 - PRESENCE OF AORTOCORONARY BYPASS GRAFT Status: Chronic (11) History of heart artery stent Code(s): Z95.5 - PRESENCE OF CORONARY ANGIOPLASTY IMPLANT AND GRAFT Status: Chronic (12) Hypertension Code(s): I10 - ESSENTIAL (PRIMARY) HYPERTENSION Status: Chronic (13) Pruritic rash Code(s): L28.2 - OTHER PRURIGO Status: Acute (14) Sinus bradycardia Code(s): R00.1 - BRADYCARDIA, UNSPECIFIED Status: Chronic - Plan Plan: Acute dyspnea, from volume overload secondary to CHF - Resolved as patient is no longer SOB and LE edema has improved as well. - Will start on 40mg PO lasix today per nephro recs. Will continue strict I/Os, daily weights, & HH, fluid & salt restricted diet. - Echo showed HFpEF of 50-55% w/ diastolic dysfunction. - Cards on board, appreciate recs. Acute on chronic kidney disease stage IV - Likely related to cardiorenal syndrome due to initial improvement with lasix. - Cr worse even w/o receiving lasix yesterday at 4.25 this AM. Will let patient receive lasix PO today per nephrology's orders but will consider holding tomorrow as patient is no longer fluid overloaded. - Will continue to monitor. - Nephro on board. Appreciate recs. Coronary artery disease - Aware, s/p CABG. - Will continue home meds. Sinus bradycardia - Patient is symptomatic w/ persistent fatigue. - Will continue to monitor. - Cards on board, appreciate recs. Diabetes mellitus II - A1c 6.4 on admission. - Will continue home meds & AC/HS accuchecks. Elevated lipase - Likely related to CKD and only mildly elevated at just over 200. - No s/s of acute pancreatitis - UDS negative. Hypertension - Will continue Norvasc at 10mg QD & start on imdur at 30mg QD per cards recs. - Will continue to monitor. Hyperlipidemia - Will continue home meds. Dispo: Anticipate likely d/c home tomorrow if renal function has improved as CHF exacerbation has resolved. Will need close follow-up w/ PCP, cards, and nephro. <Kim Alejandro - Last Filed: 01/01/18 11:03> Attending Addendum - Attending Addendum Date/Time: 01/01/18 [id number] I personally discussed the management with Dr. Alejandro I agree with the History, Examination, Assessment and Plan documented above with any addition or exceptions noted below. 57 yo male with history of CAD and HFrEF admitted for acute exacerbation HD#3 Patient notes improvement in symptoms since admission. Notes improvement in fatigue. VS reviewed. Labs reviewed. Imaging reviewed. 1. HFrEF: Repeat ECHO with improved EF. Diuresis improved symptoms. Needs referral to heart failure clinic. Will discuss cardiac meds with cards -- BB ( if pacer), ASA, Statin. Lasix as needed. Monitor daily wts and I/Os. 2. CAD: ASA, statin. Needs BB (if pacer). Trop stable. 3. HTN: Adjust CCB dose. Imdur added. 4. Bradycardia: Cards consulted. Currently asymptomatic but multiple risk factors especially with ischemic cardiomyopathy and CKD. Not able to tolerated BB at this time. Likely will need event monitor vs EP eval 5. CKDIV: Nephro following. Will need to monitor BUN/Cr/GFR closely. Possible d/ c in AM pending renal function. ABrayMD <Michelle Cooper - Last Filed: 01/01/18 19:07>
[2018-01-01 05:57] LABS: ALT (SGPT) 8 U/L (8-55); AST (SGOT) 10 U/L (5-34); Albumin 2.6 g/dL (3.5-5.0); Alkaline Phosphatase 80 U/L (40-150); Anion Gap 12 mmol/L (10-20); BUN (Urea Nitrogen) 55 mg/dL (8.4-25.7); Bilirubin, Total 0.2 mg/dL (0.2-1.2); Calc. Creatinine Clearance 26 mL/min (70-130); Calcium 7.7 mg/dL (7.8-10.44); Carbon Dioxide 23 mmol/L (22-29); Chloride 111 mmol/L (98-107); Estimated GFR-MDRD 15; Globulin 2.3 g/dL (2.4-3.5); Glucose 103 mg/dL (70-105); Protein, Total 4.9 g/dL (6.0-8.3); Sodium 141 mmol/L (136-145)
[2018-01-01] MEDS: Furosemide 40 MG TAB PO SCH (09:23)
[2018-01-01] MEDS: Amlodipine 10 MG TAB PO SCH (09:25)
[2018-01-01] MEDS: Fish Oil 1,000 MG CAP PO SCH ×2 (09:26→20:30)
[2018-01-01] MEDS: Pantoprazole 40 MG VIAL IVP SCH (09:26)
--- NOTE | 2018-01-01 10:15 | PDOC.CTH ---
Cardiology Progress Note - Subjective No complaints. Feeling much better. Walked in [place] yesterday and SOB improved. - Objective Vital Signs Temp Pulse Resp BP BP Pulse Ox 01/01/18 09:25 51 L 159/77 H 01/01/18 07:52 97.9 F 51 L 16 159/77 H 95 01/01/18 05:13 94 L 01/01/18 03:40 98.2 F 68 12 158/68 H 94 L Weight 207 lb 6 oz 12/31/17 01/01/18 01/02/18 07:59 06:59 06:59 Intake Total Output Total Balance - Physical Examination General/Neuro: alert & oriented x3 Neck: no JVD present Lungs: CTA Heart: RRR Abdomen: NT/ND - Telemetry Telemetry Rhythm: SR - Labs Result Diagrams: 12/30/17 04:12 01/01/18 04:28 Troponin/CKMB Troponin I 0.049 ng/mL (< 0.028) H 12/29/17 23:06 - Assessment/Plan 1. Acute systolic CHF 2. ICMO - EF 40-45% 3. CKD-IV 4. HTN 5. CAD s/p CABG x 2 with graft failure x 2 Add ImDur for BP control and history of CAD. Continue monitoring renal function by nephrology. Continue ambulation in [place].
[2018-01-01] MEDS ORDERED: Acetaminophen 325 MG TAB PO PRN (10:57)
--- NOTE | 2018-01-01 14:40 | PRG ---
DATE OF SERVICE: 01/01/2018 SUBJECTIVE: Patient was seen and examined at bedside and overnight events noted. Patient denies any shortness of breath or chest pain or palpitation. No history of nausea or vomiting or diarrhea or f ever or chills or cramps. OBJECTIVE: GENERAL: This is a well-built male, in no acute distress. VITAL SIGNS: Temperature , pulse 50, respiratory rate 18, blood pressure 143/68. HEENT: Atraumatic, normocephalic. Oral mucosa is moist. NECK: Supple. CARDIOVASCULAR: S1, S2 heard. Rate and rhythm regular. RESPIRATORY: Clear to auscultation. GASTROINTESTINAL: Abdomen is soft. MUSCULOSKELETAL: No tenderness. No edema. DERMATOLOGIC: No skin rash. NEUROLOGIC: Alert and awake and oriented x3. No focal neurologic deficits. Moving all the extremit ies. PSYCHIATRIC: Mood and affect normal. LABORATORY DATA: Potassium is 5.0, BUN is 55, creatinine is 4.25. ASSESSMENT AND PLAN: 1. Acute kidney injury on chronic kidney stage 4, stable. Creatinines have a slight bump even after holding the Lasix. Plan is to continue Lasix 40 p.o. daily with close monitoring of renal function. Recheck labs in the morning. 2. Metabolic acidosis, stable. 3. Hypertension. 4. Cardiorenal syndrome. 5. Edema. 6. Anemia, stable. 7. Mild hyperkalemia. We will monitor renal function closely. Okay with Lasix 40 p.o. daily for now. Advised to limit flu id and salt intake.
[2018-01-01] MEDS: HumaLOG 300 UNITS/3 ML VIAL SC PRN ×2 (17:26→20:36)
[2018-01-01] MEDS: Atorvastatin Calcium 40 MG TAB PO SCH (20:30)
[2018-01-01] MEDS: Gabapentin 300 MG CAP PO SCH (20:31)
[2018-01-01] MEDS: Sodium Bicarbonate Tab 325 MG TAB PO SCH (20:31)
[2018-01-02 05:22] LABS: ALT (SGPT) 10 U/L (8-55); AST (SGOT) 9 U/L (5-34); Albumin 2.8 g/dL (3.5-5.0); Alkaline Phosphatase 82 U/L (40-150); Anion Gap 12 mmol/L (10-20); BUN (Urea Nitrogen) 54 mg/dL (8.4-25.7); Bilirubin, Total 0.3 mg/dL (0.2-1.2); Calc. Creatinine Clearance 25 mL/min (70-130); Calcium 8.7 mg/dL (7.8-10.44); Carbon Dioxide 23 mmol/L (22-29); Chloride 112 mmol/L (98-107); Estimated GFR-MDRD 14; Globulin 2.9 g/dL (2.4-3.5); Glucose 123 mg/dL (70-105); Potassium 5.6 mmol/L (3.5-5.1); Protein, Total 5.7 g/dL (6.0-8.3); Sodium 141 mmol/L (136-145)
--- NOTE | 2018-01-02 06:12 | PDOC.FM ---
- Subjective Subjective: Pt feels well this AM, no complaints at this time. no CP/palpitations, no SOB, no cough, no abdominal pain, no nausea - Objective MAR Reviewed: Yes Vital Signs & Weight: Vital Signs (12 hours) Temp Pulse Resp BP Pulse Ox 01/02/18 03:48 98.1 F 60 13 166/78 H 96 01/01/18 19:45 93 L 01/01/18 19:42 99.4 F 56 L 16 155/70 H 93 L Weight Weight 93.894 kg I&O: 12/31/17 01/01/18 01/02/18 07:59 06:59 06:59 Intake Total 960 Output Total 2500 Balance -1540 Result Diagrams: 12/30/17 04:12 01/02/18 04:44 <Gregory Huertas - Last Filed: 01/02/18 14:27> - Objective Vital Signs & Weight: Vital Signs (12 hours) Temp Pulse Resp BP BP BP Pulse Ox 01/02/18 20:57 62 161/76 H 01/02/18 20:00 97.5 F L 62 20 161/76 H 96 01/02/18 15:56 98.4 F 53 L 16 155/67 H 93 L 01/02/18 14:40 52 L 141/65 H 01/02/18 11:58 97.4 F L 54 L 16 141/72 H 95 Weight Weight 93.894 kg I&O: 01/01/18 01/02/18 01/03/18 06:59 06:59 06:59 Intake Total 960 660 Output Total 2500 600 Balance -1540 60 Result Diagrams: 12/30/17 04:12 01/02/18 19:29 <Brendan Vogel - Last Filed: 01/02/18 21:26> Phys Exam - Physical Examination Constitutional: NAD HEENT: moist MMs, sclera anicteric Neck: no JVD, supple Respiratory: no wheezing, clear to auscultation bilateral Cardiovascular: RRR, no significant murmur Gastrointestinal: soft, non-tender Musculoskeletal: no edema, pulses present Neurological: normal sensation, moves all 4 limbs Psychiatric: normal affect, A&O x 3 Skin: no rash, normal turgor <Gregory Huertas - Last Filed: 01/02/18 14:27> Dx/Plan (1) Acute exacerbation of CHF (congestive heart failure) Code(s): I50.9 - HEART FAILURE, UNSPECIFIED Status: Acute (2) CKD (chronic kidney disease) stage 4, GFR 15-29 ml/min Code(s): N18.4 - CHRONIC KIDNEY DISEASE, STAGE 4 (SEVERE) Status: Chronic (3) CAD (coronary artery disease) Code(s): I25.10 - ATHSCL HEART DISEASE OF [place] CORONARY ARTERY W/O ANG PCTRS Status: Chronic (4) Diabetes Code(s): E11.9 - TYPE 2 DIABETES MELLITUS WITHOUT COMPLICATIONS Status: Chronic Qualifiers: Diabetes mellitus type: type 2 Diabetes mellitus complication status: with kidney complications Diabetes mellitus complication detail: with chronic kidney disease Chronic kidney disease stage: stage 4 (severe) (5) HLD (hyperlipidemia) Code(s): E78.5 - HYPERLIPIDEMIA, UNSPECIFIED Status: Chronic (6) Hypertension Code(s): I10 - ESSENTIAL (PRIMARY) HYPERTENSION Status: Chronic - Plan Plan: Acute dyspnea, from volume overload secondary to CHF A- Resolved as patient is no longer SOB and LE edema has improved as well. Echo showed HFpEF of 50-55% w/ diastolic dysfunction. Cards on board, appreciate recs. P- continue 40mg PO lasix today per nephro recs. - strict I/Os, daily weights, & HH, fluid & salt restricted diet. Acute on chronic kidney disease stage IV A- Likely related to cardiorenal syndrome due to initial improvement with lasix. Nephro is on board, recommends continuing PO lasix as of now P- Will continue to monitor. - will await further recs from nephro -potential DC today Coronary artery disease A- Aware, s/p CABG. P- Will continue meds per cardiology recs Sinus bradycardia A- Patient is asymptomatic, fatigue likely 2/2 CHF exacerbation and CKD P- Will continue to monitor. - Cards on board, f/u on recs. Diabetes mellitus II - A1c 6.4 on admission. - Will continue home meds & AC/HS accuchecks. Elevated lipase A- Likely related to CKD and only mildly elevated at just over 200, no s/s of acute pancreatitis. UDS negative. P- monitor for new symptoms Hypertension - Will continue Norvasc at 10mg QD & imdur at 30mg QD per cards recs. - Will continue to monitor. Hyperlipidemia - Will continue home meds. Dispo: Anticipate d/c home when renal function has improved. Will need close follow-up w/ PCP, cards, and nephro. Possibly today or tomorrow <Gregory Huertas - Last Filed: 01/02/18 14:27> Attending Addendum - Attending Addendum Date/Time: 01/02/182124 I personally evaluated the patient and discussed the management with Dr. Huertas and team. I agree with and repeated the History, Examination, Assessment and Plan documented above with any addition or exceptions noted below. <Brendan Vogel - Last Filed: 01/02/18 21:26>
[2018-01-02] MEDS: Furosemide 40 MG TAB PO SCH (09:20)
[2018-01-02] MEDS: Amlodipine 10 MG TAB PO SCH (09:21)
[2018-01-02] MEDS: Fish Oil 1,000 MG CAP PO SCH ×2 (09:21→20:55)
[2018-01-02] MEDS: Sodium Bicarbonate Tab 325 MG TAB PO SCH ×2 (09:48→20:50)
--- NOTE | 2018-01-02 11:58 | PRG ---
DATE OF SERVICE: 01/02/2018 SUBJECTIVE: This is a 57-year-old male being seen for stage 5 chronic kidney disease. The patient d enies any nausea, vomiting or chest pain. Patient says swelling is better. PHYSICAL EXAMINATION: GENERAL: The patient is awake, alert. VITAL SIGNS: Afebrile, pulse 50, breathing 16, blood pressure 154/74. OBJECTIVE: See above. Awake, alert, in no acute distress. GENERAL APPEARANCE AND MENTAL STATUS: Fair. HEAD/NECK: Normocephalic. Atraumatic. EYES: EOMI. No deformity. EARS: Clear. No ulcers. NOSE: Intact. No lesions. MOUTH: Clear. No discharge. THROAT: Clear. No exudate. LUNGS: Clear. No crackles. CARDIAC: S1, S2. No rub. ABDOMEN: Benign. BS+. GENITALIA/RECTUM: Zavala absent. BACK/EXTREMITIES: Edema 0+ Ulcer- NEUROLOGICAL: Alert and motor intact. SKIN: Rash- Bruise- LYMPHATICS: Edema- Ulcer- LABORATORY DATA: Show potassium is 5.6, creatinine 4.3. ASSESSMENT AND RECOMMENDATIONS: 1. Stage 5 chronic kidney disease with hyperkalemia. Discussed risks versus benefits of dialysis. Will consider PD. 2. Hypertension, stable. 3. Anemia, stable. 4. Hyperkalemia. Recheck potassium. The patient has gotten Kayexalate.
--- NOTE | 2018-01-02 14:07 | PDOC.CTH ---
Cardiology Progress Note - Subjective Pt off all BP meds at this point except imdur. Creatinine continues to increase. No CP. No SOB. - Objective Vital Signs Temp Pulse Resp BP BP BP Pulse Ox 01/02/18 11:58 97.4 F L 54 L 16 141/72 H 95 01/02/18 09:21 52 L 154/74 H 01/02/18 07:48 98.6 F 52 L 16 154/74 H 96 01/02/18 03:48 98.1 F 60 13 166/78 H 96 Weight 207 lb 01/01/18 01/02/18 01/03/18 06:59 06:59 06:59 Intake Total 960 Output Total 2500 Balance -1540 - Physical Examination General/Neuro: alert & oriented x3, NAD Neck: carotid US brisk, no JVD present Lungs: CTA, unlabored respirations Heart: RRR Abdomen: NT/ND, soft Extremities: + femoral B - Labs Result Diagrams: 12/30/17 04:12 01/02/18 04:44 Troponin/CKMB Troponin I 0.049 ng/mL (< 0.028) H 12/29/17 23:06 - Assessment/Plan SOB MIld CM CKD stage 5 Svere CAD s/p CABG HTN Add hydralazine No BB secondary to low BP and No ACEI, ARB secondary to RI May need to increase hrdalizine, imdur and add clonidine or minoxodil Given RI, recommend nephrology manage BP CV status stable
[2018-01-02] MEDS: hydrALAZINE 10 MG TAB PO SCH ×2 (14:40→20:57)
[2018-01-02] MEDS ORDERED: hydrALAZINE 25 MG TAB PO SCH (15:00)
[2018-01-02 15:29] LABS: Anion Gap 12 mmol/L (10-20); BUN (Urea Nitrogen) 53 mg/dL (8.4-25.7); Calc. Creatinine Clearance 23 mL/min (70-130); Calcium 8.4 mg/dL (7.8-10.44); Carbon Dioxide 24 mmol/L (22-29); Chloride 110 mmol/L (98-107); Estimated GFR-MDRD 13; Glucose 274 mg/dL (70-105); Potassium 5.7 mmol/L (3.5-5.1); Sodium 140 mmol/L (136-145)
[2018-01-02] MEDS ORDERED: Furosemide 40 MG/4 ML VIAL SLOW IVP SCH (16:00)
[2018-01-02] MEDS: HumaLOG 300 UNITS/3 ML VIAL SC PRN ×2 (17:58→20:58)
[2018-01-02 20:00] LABS: Anion Gap 12 mmol/L (10-20); BUN (Urea Nitrogen) 52 mg/dL (8.4-25.7); Calc. Creatinine Clearance 23 mL/min (70-130); Calcium 8.5 mg/dL (7.8-10.44); Carbon Dioxide 23 mmol/L (22-29); Chloride 110 mmol/L (98-107); Estimated GFR-MDRD 13; Glucose 140 mg/dL (70-105); Potassium 5.2 mmol/L (3.5-5.1); Sodium 140 mmol/L (136-145)
[2018-01-02] MEDS: Atorvastatin Calcium 40 MG TAB PO SCH (20:56)
[2018-01-02] MEDS: Gabapentin 300 MG CAP PO SCH (21:00)
[2018-01-03 05:38] LABS: ALT (SGPT) 12 U/L (8-55); AST (SGOT) 11 U/L (5-34); Albumin 2.7 g/dL (3.5-5.0); Alkaline Phosphatase 76 U/L (40-150); Anion Gap 12 mmol/L (10-20); BUN (Urea Nitrogen) 53 mg/dL (8.4-25.7); Bilirubin, Total 0.3 mg/dL (0.2-1.2); Calc. Creatinine Clearance 24 mL/min (70-130); Calcium 8.4 mg/dL (7.8-10.44); Carbon Dioxide 23 mmol/L (22-29); Chloride 111 mmol/L (98-107); Estimated GFR-MDRD 14; Globulin 2.8 g/dL (2.4-3.5); Glucose 96 mg/dL (70-105); Potassium 4.3 mmol/L (3.5-5.1); Protein, Total 5.5 g/dL (6.0-8.3); Sodium 142 mmol/L (136-145)
--- NOTE | 2018-01-03 05:50 | PDOC.FM ---
- Subjective Subjective: Pt reports feeling well this AM but just anxious about the possibility of perotoneal dialysis. He was not expecting his kidneys to decline at the rate they did. Otherwise no changes or complaints at this time. No cp or palpitations, no sob or cough, no nausea/vomiting - Objective MAR Reviewed: Yes Vital Signs & Weight: Vital Signs (12 hours) Temp Pulse Resp BP BP Pulse Ox 01/03/18 04:00 98.2 F 54 L 16 148/72 H 97 01/03/18 00:00 98.7 F 59 L 16 141/74 H 94 L 01/02/18 20:57 62 161/76 H 01/02/18 20:00 97.5 F L 62 20 161/76 H 96 Weight Weight 93.894 kg I&O: 01/01/18 01/02/18 01/03/18 06:59 06:59 06:59 Intake Total 960 660 Output Total 2500 600 Balance -1540 60 Result Diagrams: 12/30/17 04:12 01/03/18 04:56 <Gregory Huertas - Last Filed: 01/03/18 08:30> - Objective Vital Signs & Weight: Vital Signs (12 hours) Temp Pulse Resp BP Pulse Ox 01/03/18 09:30 95 01/03/18 07:30 98.6 F 51 L 18 157/74 H 95 01/03/18 04:00 98.2 F 54 L 16 148/72 H 97 Weight Weight 93.349 kg I&O: 01/02/18 01/03/18 01/04/18 06:59 06:59 06:59 Intake Total 960 1140 Output Total 2500 1500 Balance -1540 -360 Result Diagrams: 12/30/17 04:12 01/03/18 04:56 <Brendan Vogel - Last Filed: 01/03/18 12:52> Phys Exam - Physical Examination Constitutional: NAD HEENT: moist MMs, sclera anicteric Neck: no JVD, supple Respiratory: no wheezing, clear to auscultation bilateral Cardiovascular: RRR, no significant murmur Gastrointestinal: soft, non-tender Musculoskeletal: no edema, pulses present Neurological: normal sensation, moves all 4 limbs Psychiatric: A&O x 3 Deviation from normal: anxious affect Skin: no rash, normal turgor <Gregory Huertas - Last Filed: 01/03/18 08:30> Dx/Plan (1) Acute exacerbation of CHF (congestive heart failure) Code(s): I50.9 - HEART FAILURE, UNSPECIFIED Status: Acute (2) CKD (chronic kidney disease) stage 4, GFR 15-29 ml/min Code(s): N18.4 - CHRONIC KIDNEY DISEASE, STAGE 4 (SEVERE) Status: Chronic (3) CAD (coronary artery disease) Code(s): I25.10 - ATHSCL HEART DISEASE OF [place] CORONARY ARTERY W/O ANG PCTRS Status: Chronic (4) Diabetes Code(s): E11.9 - TYPE 2 DIABETES MELLITUS WITHOUT COMPLICATIONS Status: Chronic Qualifiers: Diabetes mellitus type: type 2 Diabetes mellitus complication status: with kidney complications Diabetes mellitus complication detail: with chronic kidney disease Chronic kidney disease stage: stage 4 (severe) (5) HLD (hyperlipidemia) Code(s): E78.5 - HYPERLIPIDEMIA, UNSPECIFIED Status: Chronic (6) Hypertension Code(s): I10 - ESSENTIAL (PRIMARY) HYPERTENSION Status: Chronic - Plan Plan: Acute dyspnea, from volume overload secondary to CHF A- Resolved as patient is no longer SOB and LE edema has improved as well. Echo showed HFpEF of 50-55% w/ diastolic dysfunction. Cards on board, appreciate recs (report cardiovascular status stable). P- continue 40mg PO lasix today per nephro recs. - strict I/Os, daily weights, & HH, fluid & salt restricted diet. Acute on chronic kidney disease stage V A- Nephro is on board and is considering Peritoneal dialysis and surgical consult per patient. Kidney fnx continues to decline though pt produces urine P- Will continue to monitor. - will await further recs from nephro - possible PD catheter insertion this hospital stay Coronary artery disease A- Aware, s/p CABG. P- Will continue meds per cardiology recs Sinus bradycardia A- Patient is asymptomatic, fatigue likely 2/2 CHF exacerbation and CKD P- Will continue to monitor. - Cards on board, f/u on recs. Diabetes mellitus II - A1c 6.4 on admission. - Will continue home meds & AC/HS accuchecks. Elevated lipase A- Likely related to CKD and only mildly elevated at just over 200, no s/s of acute pancreatitis. UDS negative. P- monitor for new symptoms Hypertension - Will continue Norvasc at 10mg QD & imdur at 30mg QD per cards recs. - Will continue to monitor. Hyperlipidemia - Will continue home meds. <Gregory Huertas - Last Filed: 01/03/18 08:30> Attending Addendum - Attending Addendum Date/Time: 01/03/18 1251 I personally evaluated the patient and discussed the management with Dr. Arambula and Kiya. I agree with and repeated the History, Examination, Assessment and Plan documented above with any addition or exceptions noted below. Waiting on dialysis plan from nephrology. <Brendan Vogel - Last Filed: 01/03/18 12:52>
[2018-01-03] MEDS: Amlodipine 10 MG TAB PO SCH (10:21)
[2018-01-03] MEDS: Furosemide 40 MG TAB PO SCH (10:21)
[2018-01-03] MEDS: Fish Oil 1,000 MG CAP PO SCH ×2 (10:21→20:46)
[2018-01-03] MEDS: hydrALAZINE 10 MG TAB PO SCH ×3 (10:22→20:45)
[2018-01-03] MEDS: Sodium Bicarbonate Tab 325 MG TAB PO SCH ×2 (11:08→20:46)
--- NOTE | 2018-01-03 12:32 | PRG ---
DATE OF SERVICE: 01/03/2018 SUBJECTIVE: This is a 57-year-old gentleman, being seen for stage 5 chronic kidney disease. The pat iesuzanne denies any nausea or vomiting, but does have leg swelling. OBJECTIVE: See above. GENERAL: The patient is awake and alert. VITAL SIGNS: Afebrile, pulse , breathing at 16, blood pressure 148/72. GENERAL APPEARANCE AND MENTAL STATUS: Fair. HEAD/NECK: Normocephalic. Atraumatic. EYES: EOMI. No deformity. EARS: Clear. No ulcers. NOSE: Intact. No lesions. MOUTH: Clear. No discharge. THROAT: Clear. No exudate. LUNGS: Clear. No crackles. CARDIAC: S1, S2. No rub. ABDOMEN: Benign. BS+. GENITALIA/RECTUM: Zavala absent. BACK/EXTREMITIES: Upper and lower extremities have edema. NEUROLOGICAL: Alert and motor intact. SKIN: Rash - bruise. LYMPHATICS: Edema - ulcer. LABORATORY DATA: Labs show hemoglobin , potassium is 4.3, creatinine 4.2. ASSESSMENT: 1. Stage 5 chronic kidney disease with edema and hyperkalemia. Plan dialysis. 2. Hyperkalemia, improved. 3. Hypertension, stable. 4. Anemia, stable. 5. Congestive heart failure and edema. Plan ultrafiltration.
--- NOTE | 2018-01-03 12:48 | PDOC.CTH ---
Cardiology Progress Note - Subjective No significant SOB. Pt states he has now committed to dialysis - Objective Vital Signs Temp Pulse Resp BP Pulse Ox 01/03/18 09:30 95 01/03/18 07:30 98.6 F 51 L 18 157/74 H 95 01/03/18 04:00 98.2 F 54 L 16 148/72 H 97 Weight 205 lb 12.8 oz 01/02/18 01/03/18 01/04/18 06:59 06:59 06:59 Intake Total 960 1140 Output Total 2500 1500 Balance -1540 -360 - Physical Examination General/Neuro: alert & oriented x3, NAD Neck: carotid US brisk, no JVD present Lungs: CTA, unlabored respirations Heart: PMI normal, RRR Abdomen: NT/ND, soft Extremities: + femoral B - Labs Result Diagrams: 12/30/17 04:12 01/03/18 04:56 Troponin/CKMB Troponin I 0.049 ng/mL (< 0.028) H 12/29/17 23:06 - Assessment/Plan SOB MIld CM CKD stage 5 Svere CAD s/p CABG HTN Pt will start the process of dialysis (I agree). This contributed to his SOB and HTN Surgical consult Ok to transfer to medical No other recommendations
[2018-01-03] MEDS ORDERED: Tuberculin PPD 0.1 ML VIAL I-DERMAL SCH ×2 (13:15→19:30)
[2018-01-03 14:28] LABS: HBSAB Concentration 0.54 mIU/mL; HBSAg Index 0.16 S/CO (0-0.99); Hep B Core Total Ab Non-Reactive (NonReactive); Hep B Core Total Index 0.08 S/CO (0-0.79); Hep B Surf AB Non-Reactive (NonReactive)
[2018-01-03 15:52] LABS: Hep B Surf Ag NonReactive S/CO (NonReactive); Hep C IgG Ab Reflex HepC Qnt (NonReactive)
--- NOTE | 2018-01-03 18:31 | ULT ---
ULTRASOUND VESSEL MAPPING FOR DIALYSIS ACCESS: 01/03/18 HISTORY: 57-year-old male with possible fistula. ESRD. RIGHT UPPER EXTREMITY BRACHIAL ARTERY: 4.9 mm RADIAL ARTERY: 2.0 mm ULNAR ARTERY: 1.5 mm CEPHALIC VEIN Proximal Arm: 4.7 mm Mid Arm: 5.0 mm Distal Arm: 4.1 mm Antecubital Fossa: 5.4 mm Proximal Forearm: 4.5 mm Mid Forearm: Partially collapsed Distal Forearm: 4.9 mm BASILIC VEIN Proximal Arm: 5.8 mm Mid Arm: 5.6 mm Distal Arm: 5.8 mm Antecubital Fossa: 5.0 mm Proximal Forearm: 2.7 mm Mid Forearm: 2.3 mm Distal Forearm: 2.5 mm LEFT UPPER EXTREMITY BRACHIAL ARTERY: 5.8 mm RADIAL ARTERY: 2.1 mm ULNAR ARTERY: 1.7 mm CEPHALIC VEIN Proximal Arm: 3.0 mm Mid Arm: 3.0 mm Distal Arm: 2.8 mm Antecubital Fossa: 3.6 mm Proximal Forearm: 4.3 mm Mid Forearm: 3.7 mm Distal Forearm: 4.0 mm BASILIC VEIN Proximal Arm: 5.5 mm Mid Arm: 5.1 mm Distal Arm: 5.1 mm Antecubital Fossa: 5.2 mm Proximal Forearm: 5.7 mm Mid Forearm: 1.6 mm Distal Forearm: 1.9 mm POS: [facility]
[2018-01-03] MEDS: Atorvastatin Calcium 40 MG TAB PO SCH (20:45)
[2018-01-03] MEDS: Gabapentin 300 MG CAP PO SCH (20:46)
--- NOTE | 2018-01-04 06:11 | PDOC.FM ---
- Subjective Subjective: Pt reports feeling well and hopeful today though he did not sleep well last night with "a lot of stuff on the mind". Not necessarily anxious. No complaints at this time. Pt reports a known hx of HepC with which he was treated and cured of with Harvoni therapy 2 years ago. He reports 3-4 tests of cure and subsequent completion with GI visits. No cp no palpitations, no sob no cough, no nausea no vomiting - Objective MAR Reviewed: Yes Vital Signs & Weight: Vital Signs (12 hours) Temp Pulse Resp BP BP Pulse Ox 01/04/18 04:00 98.5 F 62 16 145/67 H 95 01/04/18 00:00 55 L 20 139/65 01/03/18 20:45 53 L 130/65 01/03/18 20:00 98.1 F 52 L 20 130/65 96 Weight Weight 94.529 kg I&O: 01/02/18 01/03/18 01/04/18 06:59 06:59 06:59 Intake Total 960 1140 1220 Output Total 2500 1500 1650 Balance -1540 -360 -430 Result Diagrams: 12/30/17 04:12 01/04/18 04:42 <Gregory Huertas - Last Filed: 01/04/18 07:57> - Objective Vital Signs & Weight: Vital Signs (12 hours) Temp Pulse Resp BP Pulse Ox 01/04/18 10:56 98.3 F 51 L 16 161/79 H 96 01/04/18 09:30 96 01/04/18 07:30 98.3 F 96 18 155/71 H 96 01/04/18 04:00 98.5 F 62 16 145/67 H 95 Weight Weight 94.529 kg I&O: 01/03/18 01/04/18 01/05/18 06:59 06:59 06:59 Intake Total 1140 1220 Output Total 1500 1650 Balance -360 -430 Result Diagrams: 12/30/17 04:12 01/04/18 04:42 <Brendan Vogel - Last Filed: 01/04/18 14:52> Phys Exam - Physical Examination Constitutional: NAD HEENT: PERRLA, sclera anicteric Neck: no JVD, supple Respiratory: no wheezing, clear to auscultation bilateral Cardiovascular: RRR, no significant murmur Gastrointestinal: soft, positive bowel sounds Musculoskeletal: no edema, pulses present Neurological: normal sensation, moves all 4 limbs Psychiatric: normal affect, A&O x 3 Skin: no rash, normal turgor <Gregory Huertas - Last Filed: 01/04/18 07:57> Dx/Plan (1) Acute exacerbation of CHF (congestive heart failure) Code(s): I50.9 - HEART FAILURE, UNSPECIFIED Status: Acute (2) CKD (chronic kidney disease) stage 4, GFR 15-29 ml/min Code(s): N18.4 - CHRONIC KIDNEY DISEASE, STAGE 4 (SEVERE) Status: Chronic (3) CAD (coronary artery disease) Code(s): I25.10 - ATHSCL HEART DISEASE OF [place] CORONARY ARTERY W/O ANG PCTRS Status: Chronic (4) Diabetes Code(s): E11.9 - TYPE 2 DIABETES MELLITUS WITHOUT COMPLICATIONS Status: Chronic Qualifiers: Diabetes mellitus type: type 2 Diabetes mellitus complication status: with kidney complications Diabetes mellitus complication detail: with chronic kidney disease Chronic kidney disease stage: stage 4 (severe) (5) HLD (hyperlipidemia) Code(s): E78.5 - HYPERLIPIDEMIA, UNSPECIFIED Status: Chronic (6) Hypertension Code(s): I10 - ESSENTIAL (PRIMARY) HYPERTENSION Status: Chronic - Plan Plan: Acute on chronic kidney disease stage V A- Nephro is on board and is planing for PD cath today with peritoneal dialysis. Potential discharge tomorrow pending assuring potassium lvl. Plans for hemodialysis if Potassium is not satisfactory. P- PD cath today with dialysis planned after - monitor potassium - potential DC tomorrow vs. new plans for hemodialysis Hepatitis C - Antibody positive on yesterdays test. Pt aware and reports cure of disease 2 years ago. Hyperkalemia A- lvl is 4.5 today P- will monitor lvl in AM BMP after peritoneal dialysis Acute dyspnea, from volume overload secondary to CHF A- Resolved. Echo showed HFpEF of 50-55% w/ diastolic dysfunction. Cards on board, appreciate recs (report cardiovascular status stable). P- continue 40mg PO lasix - strict I/Os, daily weights, & HH, fluid & salt restricted diet. Coronary artery disease A- Aware, s/p CABG. P- Will continue meds per cardiology recs Sinus bradycardia A- Patient is asymptomatic, fatigue likely 2/2 CHF exacerbation and CKD P- Will continue to monitor. - Cards on board, f/u on recs. Diabetes mellitus II - A1c 6.4 on admission. - Will continue home meds & AC/HS accuchecks. Elevated lipase A- Likely related to CKD and only mildly elevated at just over 200, no s/s of acute pancreatitis. UDS negative. P- monitor for new symptoms Hypertension - Will continue Norvasc at 10mg QD & imdur at 30mg QD per cards recs. - Will continue to monitor. Hyperlipidemia - Will continue home meds. <Gregory Huertas - Last Filed: 01/04/18 07:57> Attending Addendum - Attending Addendum Date/Time: 01/04/18 7097 I personally evaluated the patient and discussed the management with Dr. Huertas. I agree with and repeated the History, Examination, Assessment and Plan documented above with any addition or exceptions noted below. <Brendan Vogel - Last Filed: 01/04/18 14:52>
[2018-01-04 06:21] LABS: ALT (SGPT) 10 U/L (8-55); AST (SGOT) 11 U/L (5-34); Albumin 2.6 g/dL (3.5-5.0); Alkaline Phosphatase 78 U/L (40-150); Anion Gap 14 mmol/L (10-20); BUN (Urea Nitrogen) 58 mg/dL (8.4-25.7); Bilirubin, Total 0.3 mg/dL (0.2-1.2); Calc. Creatinine Clearance 23 mL/min (70-130); Carbon Dioxide 19 mmol/L (22-29); Chloride 112 mmol/L (98-107); Estimated GFR-MDRD 13; Globulin 2.8 g/dL (2.4-3.5); Glucose 84 mg/dL (70-105); Potassium 4.5 mmol/L (3.5-5.1); Protein, Total 5.4 g/dL (6.0-8.3); Sodium 140 mmol/L (136-145)
[2018-01-04] MEDS ORDERED: PROPOFOL 200 MG/20 ML VIAL ONE (09:26)
[2018-01-04] MEDS ORDERED: Lidocaine 1% PF 5 ML VIAL ONE (09:26)
[2018-01-04] MEDS ORDERED: Glycopyrrolate 0.2 MG/ML 5 ML SYRINGE ONE (09:26)
[2018-01-04] MEDS ORDERED: ePHEDrine/0.9% NaCl/PF SYRINGE 50 mg/10 ml ONE (09:26)
[2018-01-04] MEDS ORDERED: Heparin 10,000 UNITS/ 10 ML VIAL ONE (09:26)
--- NOTE | 2018-01-04 09:52 | PRG ---
DATE OF SERVICE: 01/04/2018 SUBJECTIVE: This is a 57-year-old gentleman, being seen for end-stage renal disease. The patient de nies any nausea, vomiting, or chest pain. OBJECTIVE: See above. GENERAL: Patient is awake and alert. VITAL SIGNS: Afebrile, pulse 62, breathing at 16, blood pressure . GENERAL APPEARANCE AND MENTAL STATUS: Fair. HEAD/NECK: Normocephalic. Atraumatic. EYES: EOMI. No deformity. EARS: Clear. No ulcers. NOSE: Intact. No lesions. MOUTH: Clear. No discharge. THROAT: Clear. No exudate. LUNGS: Clear. No crackles. CARDIAC: S1 and S2. No rub. ABDOMEN: Benign. BS+. GENITALIA/RECTUM: Zavala absent. BACK/EXTREMITIES: Edema 0+, ulcer. NEUROLOGICAL: Alert and motor intact. SKIN: Rash - bruise. LYMPHATICS: Edema - ulcer. LABORATORY DATA: Labs show creatinine 4.8. ASSESSMENT AND PLAN: 1. Chronic kidney disease, stage 5. Plan renal replacement therapy. 2. Hypertension, stable. 3. Anemia, stable. 4. Medication based on glomerular filtration rate are appropriate.
[2018-01-04] MEDS ORDERED: CEFAZOLIN/Water 2 GM/20 ML SYRINGE SLOW IVP SCH (12:00)
--- NOTE | 2018-01-04 12:07 | CON ---
DATE OF CONSULTATION: 01/04/2018 HISTORY OF PRESENT ILLNESS: Timothy Grande is a 57-year-old male, end-stage renal disease with histor y of diabetes, noninsulin-dependent, and hypertension. 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 E ight years ago he had a coronary bypass graft for angina in [place]. He is admitted this hospitaliza tion with end-stage renal disease. I have been asked to see him regarding placement of a peritoneal dialysis catheter and will plan left arm fistula. He has a right cephalic vein wrist IV. Ultrasound vein mapping reveals veins both arms to be of excellent caliber and he may be able to have a Kiran fistula left wrist, although not visibly evident. ALLERGIES: None. TOBACCO: He quit a week and a half ago, a pack and a half to 1 pack per day. ALCOHOL: Cessation 4-5 years ago. PAST SURGICAL HISTORY: Coronary artery bypass grafting x5 vessels in [place] 8 years ago. No cardia c symptoms since. He states he can walk 3-5 miles without dyspnea or chest pain. PAST SURGICAL HISTORY: Coronary bypass grafting, cholecystectomy, subxiphoid incisional hernia repai r after coronary bypass grafting with a recurrent hernia that is bothersome to him and painful to him . Past colonoscopies, last 2-3 years ago, multiple polypectomy. REVIEW OF SYSTEMS: [place] noncontributory. FAMILY HISTORY: Noncontributory. MEDICATIONS: At home, he takes gabapentin 300 mg at bedtime, atorvastatin 40 mg at bedtime, sodium b icarbonate 325 b.i.d., glipizide 5 mg a day, aspirin 81 mg, amlodipine 10 mg a day, metoprolol 25 mg a day, amlodipine 5 mg a day. In the hospital, he is on insulin, Colace, nitroglycerin p.r.n., Najma nix. Echocardiogram 12/30/2017, normal ejection fraction 50-55%, mild concentric LVH, no significant valvu lar disease. He has been followed by Dr. Christianson this hospitalization. He has been seen by Dr. Chante delong and Dr. Buck this hospitalization. PHYSICAL EXAMINATION: VITAL SIGNS: Height 5 foot 10, 208 pounds, 29 BMI, 98.3, 96, 155/71. HEENT: Unremarkable. LUNGS: Clear to auscultation. CARDIAC: Regular rate and rhythm without murmur or gallop. ABDOMEN: Soft, subxiphoid incisional hernia, protuberant, reducible, painful, slightly obese abdomen . No evident umbilical hernia or groin hernias. EXTREMITIES: Palpable pulses. Tattoos both arms. IV right cephalic vein wrist. ASSESSMENT AND PLAN: 1. End-stage renal disease secondary to hypertension, diabetes. Plan placement of laparoscopic nunu toneal dialysis catheter. I have discussed the exit site and marked it. 2. We will plan left arm fistula. He has excellent veins. He may be able to have a Kiran fistula wrist. 3. Diabetes mellitus. 4. Hypertension. 5. Coronary artery disease, status post coronary bypass grafting 8 years ago in [place], [facility] currently. Normal echocardiogram this hospitalization, followed by Dr. Christianson this [facility]. 6. History of colonic polyps, status post colonoscopy 2 years ago.
[2018-01-04] MEDS ORDERED: CEFAZOLIN 2 GM/50 ML BAG ONE (12:29)
[2018-01-04] MEDS ORDERED: Bupivacaine HCl 0.5%/Epinephrine 1:200,000/PF 30 ml Vial ONE ×2 (13:28→13:29)
[2018-01-04] MEDS ORDERED: Heparin 10,000 UNITS/1 ML VIAL ONE (13:28)
[2018-01-04] MEDS ORDERED: Bupivacaine/Epinephrine 0.25% 30 ML VIAL ONE (13:29)
[2018-01-04] MEDS ORDERED: Fentanyl 100 MCG/2 ML VIAL ONE ×3 (13:46→16:37)
[2018-01-04] MEDS ORDERED: Lidocaine 2% PF 5 ML VIAL ONE (15:00)
[2018-01-04] MEDS ORDERED: Heparin 5,000 UNITS/ML VIAL ONE (15:00)
[2018-01-04] MEDS ORDERED: Protamine Sulfate 50 MG/5 ML VIAL ONE (15:38)
[2018-01-04] MEDS: Fish Oil 1,000 MG CAP PO SCH ×2 (15:56→21:01)
[2018-01-04] MEDS: Furosemide 40 MG TAB PO SCH (15:56)
[2018-01-04] MEDS: Amlodipine 10 MG TAB PO SCH (15:56)
[2018-01-04] MEDS: hydrALAZINE 10 MG TAB PO SCH ×2 (15:57→21:02)
[2018-01-04] MEDS ORDERED: Promethazine HCl 25 MG/ML VIAL IM PRN (15:57)
[2018-01-04] MEDS ORDERED: Promethazine HCl 25 MG/ML VIAL SLOW IVP PRN (15:57)
[2018-01-04] MEDS ORDERED: Ondansetron HCl/PF 4 MG/2 ML Vial IVP PRN (15:57)
[2018-01-04] MEDS: Sodium Bicarbonate Tab 325 MG TAB PO SCH ×2 (15:58→21:02)
[2018-01-04] MEDS ORDERED: Acetaminophen 500 MG TAB PO PRN (16:29)
[2018-01-04] MEDS ORDERED: traMADol HCl 50 MG TAB PO PRN (16:29)
[2018-01-04] MEDS: traMADol HCl 50 MG TAB PO PRN (19:16)
[2018-01-04] MEDS: Atorvastatin Calcium 40 MG TAB PO SCH (21:01)
[2018-01-04] MEDS: Gabapentin 300 MG CAP PO SCH (21:02)
[2018-01-04] MEDS: Morphine 2 MG/ML SYRINGE SLOW IVP PRN (21:03)
--- NOTE | 2018-01-04 23:23 | OP ---
DATE OF PROCEDURE: 01/04/2018 PREOPERATIVE DIAGNOSES: End-stage renal disease, recurrent incisional hernia, subxiphoid with promin ent xiphoid. SURGEON: Dr. Nicko Prather. ANESTHESIA: General. Local 0.25% Marcaine with epinephrine of 30 mL, mixed with 2% Xylocaine of 10 mL. PROCEDURES: Laparoscopic peritoneal dialysis catheter placement, double-cuffed, pigtail (prior upper subxiphoid incisional hernia repair after coronary artery bypass grafting, resulted in prior omentop exy and this was not necessary to this operation). Open incisional hernia repair subxiphoid with res ection of the xiphoid and an 8.4-cm mesh used to reinforce the fascial closure. Left-arm Kiran fist danis calibration of 3.5-mm coronary dilator outflow. SURGEON: Nicko Prather MD ANESTHESIA: General. PROCEDURE IN DETAIL: The patient was taken to the operating room under general anesthesia, abdomen w as clipped of hair, prepared with ChloraPrep, draped in routine fashion as well as the left upper ext remity. Incision was made in bilateral subcostal and pneumoperitoneum to 15 mmHg obtained with the V eress needle, replacing it with a 5-port laparoscope inserted. Contralateral port placed under lapar oscopic visualization. At the planned exit site, a stab incision was made in just above the umbilicu s and superior to this, a counter incision was made and an 8-mm port directed caudally and the subcut aneous tissue into the rectus sheath visualized laparoscopically, penetrating the abdominal cavity de pendently. Inserted the double-cuffed pigtail peritoneal dialysis catheter, internal cuff in the rec tus sheath as 8 mm port was removed. Using [place] dissector, a tunneling device was placed at the planned exit site directed to the counter incision, the catheter was grasped and brought out through the exit site with external dustin placed beneath the skin exit site. Subcutaneous tissues approxima troy with 3-0 Monocryl, skin with subdermal 4-0 Monocryl, Biopatch, DermaGlue, and sterile dressings w ere applied after the catheter was flushed with 1000 units heparin per 10 mL. It flushed easily. Om entum did not reach into the pelvis and it was adherent to the upper abdomen from the patient's prior subxiphoid incisional hernia repair from his coronary artery bypass grafting incision. Omentopexy w as not necessary. Incision was made from the xiphoid to upper abdomen through a low tissue and hernia sac dissect ed free down to the fascial edges. Xiphoid bone was bifurcated and it was dissected free and excised with the bone cutters. This enabled dissection to preperitoneal space and mesh placed in the peritoneal cavity. The visceral coated side toward the viscera and the mesh secured to the fascia ci rcumferentially with interrupted sutures of #1 PDS. Fascia approximated in the midline, approximatin g the mesh to fascia with interrupted sutures of #1 PDS [id number] and simple. Once this was co mpleted, abdominal cavity closed subcutaneous tissues approximated with 3-0 Monocryl, skin with subde rmal 4-0 Monocryl and DermaGlue applied. Pneumoperitoneum had been evacuated, irrigant and pneumoper itoneum evacuated and laparoscopic incision closed by approximating the subdermal tissue of 4-0 Monoc ryl and DermaGlue applied. Incision was then turned to the left arm. Incision was made between the cephalic vein and the radial artery at the wrist. Dissection carried out, dissecting the cephalic vein and radial artery. Radia l artery was heavily calcified, but patent. It was dissected free. Patient was given 6000 units hep zari intravenously. After adequate circulation time, the cephalic vein was ligated on the hand side, divided, spatulated, and interrogated with coronary dilators, passing coronary dilators from a 2 mm to a 3.5-mm coronary dilator, unobstructed out the outflow. Radial artery was clamped proximally and distally. Longitudinal radial arteriotomy made sharply and elongated with Tobin scissors. There wa s good forward flow in the radial artery. End vein to side radial artery anastomosis created with co ntinuous suture of 6-0 Prolene, releasing the clamps, noting good Doppler signal in the cephalic vein outflow fistula. Good hemostasis noted. The patient given 25 mg of protamine intravenously. Subcu taneous tissues approximated with 3-0 Monocryl, skin with subdermal 4-0 Monocryl, and DermaGlue appli ed.
[2018-01-05] MEDS: Morphine 2 MG/ML SYRINGE SLOW IVP PRN ×5 (01:10→20:31)
--- NOTE | 2018-01-05 05:43 | PDOC.FM ---
- Subjective Subjective: Pt reports feeling well this AM. He reports pain on ambulation but otherwise has good toleration. Pt has no other complaints at this time. No cp, no palpitations, no sob no cough, no nausea no vomiting - Objective MAR Reviewed: Yes Vital Signs & Weight: Vital Signs (12 hours) Temp Pulse Resp BP Pulse Ox 01/05/18 03:50 98.6 F 60 13 157/80 H 95 01/04/18 23:20 98.1 F 60 12 143/74 H 96 01/04/18 21:01 98.8 F 63 20 153/86 H 96 Weight Weight 94.529 kg I&O: 01/03/18 01/04/18 01/05/18 06:59 06:59 06:59 Intake Total 1140 1220 Output Total 1500 1650 Balance -360 -430 Result Diagrams: 12/30/17 04:12 01/05/18 05:04 <Gregory Huertas - Last Filed: 01/05/18 08:04> - Objective Vital Signs & Weight: Vital Signs (12 hours) Temp Pulse Resp BP Pulse Ox 01/05/18 11:49 98.2 F 55 L 16 162/78 H 93 L 01/05/18 08:30 60 01/05/18 08:29 60 01/05/18 08:00 97 01/05/18 07:37 98.6 F 60 16 155/74 H 97 01/05/18 03:50 98.6 F 60 13 157/80 H 95 Weight Weight 94.801 kg I&O: 01/04/18 01/05/18 01/06/18 06:59 06:59 06:59 Intake Total 1220 680 Output Total 1650 250 Balance -430 430 Result Diagrams: 12/30/17 04:12 01/05/18 05:04 <Brendan Vogel - Last Filed: 01/05/18 13:57> Phys Exam - Physical Examination Constitutional: NAD HEENT: moist MMs, sclera anicteric Neck: no JVD, supple Respiratory: no wheezing, clear to auscultation bilateral Cardiovascular: RRR, no significant murmur Gastrointestinal: soft, positive bowel sounds incisions are clean, dry and intact Musculoskeletal: no edema, pulses present Neurological: normal sensation, moves all 4 limbs Psychiatric: normal affect, A&O x 3 Skin: no rash, normal turgor <Gregory Huertas - Last Filed: 01/05/18 08:04> Dx/Plan (1) Acute exacerbation of CHF (congestive heart failure) Code(s): I50.9 - HEART FAILURE, UNSPECIFIED Status: Acute (2) CKD (chronic kidney disease) stage 4, GFR 15-29 ml/min Code(s): N18.4 - CHRONIC KIDNEY DISEASE, STAGE 4 (SEVERE) Status: Chronic (3) CAD (coronary artery disease) Code(s): I25.10 - ATHSCL HEART DISEASE OF [place] CORONARY ARTERY W/O ANG PCTRS Status: Chronic (4) Diabetes Code(s): E11.9 - TYPE 2 DIABETES MELLITUS WITHOUT COMPLICATIONS Status: Chronic Qualifiers: Diabetes mellitus type: type 2 Diabetes mellitus complication status: with kidney complications Diabetes mellitus complication detail: with chronic kidney disease Chronic kidney disease stage: stage 4 (severe) (5) HLD (hyperlipidemia) Code(s): E78.5 - HYPERLIPIDEMIA, UNSPECIFIED Status: Chronic (6) Hypertension Code(s): I10 - ESSENTIAL (PRIMARY) HYPERTENSION Status: Chronic - Plan Plan: Acute on chronic kidney disease stage V A- Pt is s/p PD cath placement, L wrist Kiran fistula, and subxiphoid hernia repair day 1. Tolerating pain well, still on 2L O2. Potassium 5, Kidney fxn stable from yesterday P- potential DC today or tomorrow pending Nephro recommendations Hepatitis C - Antibody positive on yesterdays test. Pt aware and reports cure of disease 2 years ago. Hyperkalemia A- lvl is 5 today P- possible DC today with f/u for dialysis outpatient Acute dyspnea, from volume overload secondary to CHF A- Resolved. Echo showed HFpEF of 50-55% w/ diastolic dysfunction. Cards on board, appreciate recs (report cardiovascular status stable). P- continue 40mg PO lasix per nephro recs - strict I/Os, daily weights, & HH, fluid & salt restricted diet. Coronary artery disease A- Aware, s/p CABG. P- Will continue meds per cardiology recs Sinus bradycardia A- Patient is asymptomatic, fatigue likely 2/2 CHF exacerbation and CKD P- Will continue to monitor. - Cards on board, f/u on recs. Diabetes mellitus II - A1c 6.4 on admission. - Will continue home meds & AC/HS accuchecks. Elevated lipase A- Likely related to CKD and only mildly elevated at just over 200, no s/s of acute pancreatitis. UDS negative. P- monitor for new symptoms Hypertension - Will continue Norvasc at 10mg QD and hydralazine TID per cards recs. - Will continue to monitor. Hyperlipidemia - Will continue home meds. <Gregory Huertas - Last Filed: 01/05/18 08:04> Attending Addendum - Attending Addendum Date/Time: 01/05/18 7472 I personally evaluated the patient and discussed the management with Dr. Huertas. I agree with and repeated the History, Examination, Assessment and Plan documented above with any addition or exceptions noted below. <Brendan Vogel - Last Filed: 01/05/18 13:57>
[2018-01-05 06:28] LABS: ALT (SGPT) 22 U/L (8-55); AST (SGOT) 48 U/L (5-34); Alkaline Phosphatase 108 U/L (40-150); Anion Gap 14 mmol/L (10-20); BUN (Urea Nitrogen) 54 mg/dL (8.4-25.7); Bilirubin, Total 0.5 mg/dL (0.2-1.2); Calc. Creatinine Clearance 23 mL/min (70-130); Calcium 8.7 mg/dL (7.8-10.44); Carbon Dioxide 20 mmol/L (22-29); Chloride 110 mmol/L (98-107); Estimated GFR-MDRD 13; Glucose 137 mg/dL (70-105); Sodium 139 mmol/L (136-145)
[2018-01-05] MEDS: Amlodipine 10 MG TAB PO SCH (08:29)
[2018-01-05] MEDS: Furosemide 40 MG TAB PO SCH (08:29)
[2018-01-05] MEDS: Fish Oil 1,000 MG CAP PO SCH ×2 (08:29→20:29)
[2018-01-05] MEDS: hydrALAZINE 10 MG TAB PO SCH ×3 (08:30→20:29)
[2018-01-05] MEDS: Sodium Bicarbonate Tab 325 MG TAB PO SCH ×2 (08:30→20:31)
[2018-01-05] MEDS ORDERED: READ PPD TEST SITE PO SCH (09:00)
[2018-01-05] MEDS: traMADol HCl 50 MG TAB PO PRN (09:40)
[2018-01-05] MEDS ORDERED: Morphine 2 MG/ML SYRINGE SLOW IVP PRN (10:53)
[2018-01-05] MEDS: HumaLOG 300 UNITS/3 ML VIAL SC PRN ×2 (11:44→17:18)
--- NOTE | 2018-01-05 14:05 | PRG ---
DATE OF SERVICE: 01/05/2018 SUBJECTIVE: A 57-year-old male being seen for end-stage renal disease. Patient denies any nausea, v omiting, or chest pain. PHYSICAL EXAMINATION: GENERAL: Patient is awake, alert. VITAL SIGNS: Afebrile, pulse 75, breathing at 16, blood pressure 155/74. GENERAL APPEARANCE AND MENTAL STATUS: Fair. HEAD/NECK: Normocephalic. Atraumatic. EYES: EOMI. No deformity. EARS: Clear. No ulcers. NOSE: Intact. No lesions. MOUTH: Clear. No discharge. THROAT: Clear. No exudate. LUNGS: Clear. No crackles. CARDIAC: S1, S2. No rub. ABDOMEN: Benign. BS+. GENITALIA/RECTUM: Zavala absent. BACK/EXTREMITIES: Edema 0+ Ulcer- NEUROLOGICAL: Alert and motor intact. SKIN: Rash- Bruise- LYMPHATICS: Edema- Ulcer- LABORATORY DATA: Hemoglobin 12.7, creatinine is 4.7. ASSESSMENT: 1. Stage 5 chronic kidney disease. 2. Hyperkalemia, stable. 3. Metabolic acidosis, stable. We will plan outpatient .
--- NOTE | 2018-01-05 15:35 | RAD ---
UPRIGHT PORTABLE CHEST 1 VIEW: HISTORY: A 57-year-old male with ESRD. Followup shortness of breath, predialysis evaluation. FINDINGS: Poor inspiratory effort with minimal cardiomegaly and postop midline sternotomy. Large granuloma vinh cification in the right upper mid lung zone with a smaller old granuloma calcification. Some bluntin g of the left costophrenic angle, possibly a small pleural effusion. No overt edema. IMPRESSION: Left costophrenic angle blunting, possible small left pleural effusion. Minimal cardiomegaly. No ov ert edema. POS: [facility]
--- NOTE | 2018-01-05 16:21 | PRG ---
DATE OF SERVICE: 01/05/2018 SUBJECTIVE: Mr. Grande is doing well today. He is complaining of some pain from his subxiphoid are a. Otherwise, he is doing well. OBJECTIVE: LUNGS: Clear to auscultation. CARDIAC: Regular rate and rhythm without murmur or gallop. ABDOMEN: Soft, nontender. Subxiphoid wound well healed with slight drainage. Dialysis catheter purnima ssing intact. EXTREMITIES: Left Kiran fistula, good thrill and bruit over the fistula. Wound looks good. ASSESSMENT AND PLAN: Doing well after a left arm Kiran fistula. Repair for recurrent hernia subxip hoid area and excision and resection of the xiphoid and laparoscopic peritoneal dialysis catheter mohamud cement. From a surgical standpoint, the patient will be discharged home at any time. He should avoi d lifting over 25 or 30 pounds for 6-8 weeks as far as incisional hernia. He can use his left arm, u nrestricted. He should follow up with the peritoneal dialysis nurse in 3-7 days postoperatively to c hange the peritoneal dialysis catheter dressing and begin instructions on peritoneal dialysis. The d ressing over the left lower quadrant abdominal wound. Peritoneal dialysis catheter should be left in tact and not changed until he sees the peritoneal dialysis nurse as an outpatient. At this point, I will see him as needed. Please call if necessary.
[2018-01-05] MEDS: Gabapentin 300 MG CAP PO SCH (20:29)
[2018-01-05] MEDS: Atorvastatin Calcium 40 MG TAB PO SCH (20:31)
[2018-01-06] MEDS: Morphine 2 MG/ML SYRINGE SLOW IVP PRN ×2 (01:17→06:39)
[2018-01-06 05:44] LABS: ALT (SGPT) 15 U/L (8-55); AST (SGOT) 23 U/L (5-34); Alkaline Phosphatase 108 U/L (40-150); Anion Gap 13 mmol/L (10-20); BUN (Urea Nitrogen) 57 mg/dL (8.4-25.7); Bilirubin, Total 0.4 mg/dL (0.2-1.2); Calc. Creatinine Clearance 21 mL/min (70-130); Calcium 8.9 mg/dL (7.8-10.44); Carbon Dioxide 25 mmol/L (22-29); Chloride 108 mmol/L (98-107); Estimated GFR-MDRD 11; Globulin 3.3 g/dL (2.4-3.5); Glucose 126 mg/dL (70-105); Potassium 5.5 mmol/L (3.5-5.1); Protein, Total 6.3 g/dL (6.0-8.3); Sodium 140 mmol/L (136-145)
[2018-01-06] MEDS ORDERED: HYDROcodone/Acetaminophen 5/325 mg Tablet PO PRN (06:00)
--- NOTE | 2018-01-06 06:04 | PDOC.FM ---
- Subjective Subjective: Pt reports continued pain at surgical sites with moderate control of pain. Reports the pain has been keeping him from taking deep breaths and he has had a new productive cough this AM. No other complaints at this time No cp, no palpitations, no sob, cough, no nausea, no vomiting - Objective MAR Reviewed: Yes Vital Signs & Weight: Vital Signs (12 hours) Temp Pulse Resp BP Pulse Ox 01/06/18 04:00 97.9 F 60 17 157/92 H 92 L 01/05/18 20:29 72 01/05/18 20:00 98 F 72 18 152/85 H 95 Weight Weight 94.801 kg I&O: 01/04/18 01/05/18 01/06/18 06:59 06:59 06:59 Intake Total 1220 680 720 Output Total 6764 224 3201 Balance -430 430 -630 Result Diagrams: 12/30/17 04:12 01/06/18 05:08 <Gregory Huertas - Last Filed: 01/06/18 07:40> - Objective Vital Signs & Weight: Vital Signs (12 hours) Temp Pulse Resp BP BP Pulse Ox 01/06/18 12:36 66 18 133/67 92 L 01/06/18 09:17 74 158/77 H 01/06/18 07:25 97.9 F 74 18 172/84 H 94 L 01/06/18 04:00 97.9 F 60 17 157/92 H 92 L Weight Weight 94.801 kg I&O: 01/05/18 01/06/18 01/07/18 06:59 06:59 06:59 Intake Total 680 720 Output Total 250 1350 Balance 430 -630 Result Diagrams: 12/30/17 04:12 01/06/18 05:08 <Brendan Vogel - Last Filed: 01/06/18 15:00> Phys Exam - Physical Examination Constitutional: NAD HEENT: moist MMs, sclera anicteric Neck: supple, full ROM Respiratory: no wheezing, clear to auscultation bilateral Cardiovascular: RRR, no significant murmur Gastrointestinal: no distention, positive bowel sounds Musculoskeletal: no edema, pulses present Neurological: normal sensation, moves all 4 limbs Psychiatric: normal affect, A&O x 3 Skin: no rash, normal turgor <Gregory Huertas - Last Filed: 01/06/18 07:40> Dx/Plan (1) Acute exacerbation of CHF (congestive heart failure) Code(s): I50.9 - HEART FAILURE, UNSPECIFIED Status: Acute (2) CKD (chronic kidney disease) stage 4, GFR 15-29 ml/min Code(s): N18.4 - CHRONIC KIDNEY DISEASE, STAGE 4 (SEVERE) Status: Chronic (3) CAD (coronary artery disease) Code(s): I25.10 - ATHSCL HEART DISEASE OF [place] CORONARY ARTERY W/O ANG PCTRS Status: Chronic (4) Diabetes Code(s): E11.9 - TYPE 2 DIABETES MELLITUS WITHOUT COMPLICATIONS Status: Chronic Qualifiers: Diabetes mellitus type: type 2 Diabetes mellitus complication status: with kidney complications Diabetes mellitus complication detail: with chronic kidney disease Chronic kidney disease stage: stage 4 (severe) (5) HLD (hyperlipidemia) Code(s): E78.5 - HYPERLIPIDEMIA, UNSPECIFIED Status: Chronic (6) Hypertension Code(s): I10 - ESSENTIAL (PRIMARY) HYPERTENSION Status: Chronic - Plan Plan: Acute on chronic kidney disease stage V A- Pt is s/p PD cath placement, L wrist Kiran fistula, and subxiphoid hernia repair day 2. Potassium 5.5, Kidney fxn worsening from yesterday. Called Dr. Coronado who recommended EKG, insulin/d50, and to plan for hemodialysis today after completion of L wrist cath. P- L cath placement -will get hemodialysis today -insulin/d50 -stat EKG Hyperkalemia A- lvl is 5.5 today P- plan as listed above in CC Cough A-likely 2/2 post op pain and decreased tidal volume, pt is afebrile P- Will control pain -incentive spirometry -monitor vitals and symptoms Hepatitis C - Antibody positive on yesterdays test. Pt aware and reports cure of disease 2 years ago. Acute dyspnea, from volume overload secondary to CHF A- Resolved. Echo showed HFpEF of 50-55% w/ diastolic dysfunction. Cards on board, appreciate recs (report cardiovascular status stable). P- continue 40mg PO lasix per nephro recs - strict I/Os, daily weights, & HH, fluid & salt restricted diet. Coronary artery disease A- Aware, s/p CABG. P- Will continue meds per cardiology recs Sinus bradycardia A- Patient is asymptomatic, fatigue likely 2/2 CHF exacerbation and CKD P- Will continue to monitor. - Cards on board, f/u on recs. Diabetes mellitus II - A1c 6.4 on admission. - Will continue home meds & AC/HS accuchecks. Elevated lipase A- Likely related to CKD and only mildly elevated at just over 200, no s/s of acute pancreatitis. UDS negative. P- monitor for new symptoms Hypertension - Will continue Norvasc at 10mg QD and hydralazine TID per cards recs. - Will continue to monitor. <Gregory Huertas - Last Filed: 01/06/18 07:40> Attending Addendum - Attending Addendum Date/Time: 01/06/18 1500 I personally evaluated the patient and discussed the management with Dr. Huertas. I agree with and repeated the History, Examination, Assessment and Plan documented above with any addition or exceptions noted below. Patient now with hyperK again. insulin + D50. Plan on tunneled cath + dialysis today. <Brendan Vogel - Last Filed: 01/06/18 15:00>
[2018-01-06] MEDS ORDERED: Insulin Regular 300 UNITS/3 ML VIAL IVP SCH (07:00)
[2018-01-06] MEDS ORDERED: Dextrose 50% Abboject 50 ML SYRINGE SLOW IVP SCH (07:00)
[2018-01-06] MEDS ORDERED: CEFAZOLIN/Water 2 GM/20 ML SYRINGE SLOW IVP SCH (07:15)
[2018-01-06] MEDS ORDERED: CEFAZOLIN 2 GM/50 ML-DEXTROSE 2 GM in Premix Bag 1 BAG IVPB SCH (07:30)
[2018-01-06] MEDS ORDERED: Morphine 2 MG/ML SYRINGE SLOW IVP PRN (08:48)
--- NOTE | 2018-01-06 09:10 | PRG ---
DATE OF SERVICE: 01/06/2018 SUBJECTIVE: A 57-year-old male being seen for end-stage renal disease. The patient denies any nause a, vomiting or chest pain. PHYSICAL EXAMINATION: GENERAL: Patient is awake, alert. VITAL SIGNS: Afebrile, pulse 75, breathing 16, blood pressure is 157/92. OBJECTIVE: See above. Awake, alert, in no acute distress. GENERAL APPEARANCE AND MENTAL STATUS: Fair. HEAD/NECK: Normocephalic. Atraumatic. EYES: EOMI. No deformity. EARS: Clear. No ulcers. NOSE: Intact. No lesions. MOUTH: Clear. No discharge. THROAT: Clear. No exudate. LUNGS: Clear. No crackles. CARDIAC: S1, S2. No rub. ABDOMEN: Benign. BS+. GENITALIA/RECTUM: Zavala absent. BACK/EXTREMITIES: Edema 0+ Ulcer- NEUROLOGICAL: Alert and motor intact. SKIN: Rash- Bruise- LYMPHATICS: Edema- Ulcer- LABORATORY: Hemoglobin is 12.7, potassium is 5.5. ASSESSMENT: 1. Stage 6 chronic kidney disease with hyperkalemia. We will put a tunneled catheter and start dial ysis. 2. Hyperkalemia, plan dialysis. 3. Anemia, stable. 4. Medication based on glomerular filtration rate are appropriate.
[2018-01-06] MEDS: Sodium Bicarbonate Tab 325 MG TAB PO SCH ×2 (09:17→20:04)
[2018-01-06] MEDS: hydrALAZINE 10 MG TAB PO SCH ×3 (09:17→20:06)
[2018-01-06] MEDS: Fish Oil 1,000 MG CAP PO SCH ×2 (09:17→20:05)
[2018-01-06] MEDS ORDERED: CEFAZOLIN 2 GM/50 ML BAG ONE (10:57)
[2018-01-06] MEDS ORDERED: Oxymetazoline HCl 0.05% ( 15 ML ) ONE (10:57)
[2018-01-06] MEDS ORDERED: Lidocaine 2% Jelly 5 ML TUBE ONE (11:00)
[2018-01-06] MEDS ORDERED: Fentanyl 100 MCG/2 ML VIAL ONE (11:00)
[2018-01-06] MEDS ORDERED: Morphine 2 MG/ML SYRINGE ONE (11:01)
[2018-01-06] MEDS ORDERED: Lidocaine 2% PF 5 ML VIAL ONE (11:09)
[2018-01-06] MEDS ORDERED: Sodium Chloride 0.9% 10 ML ONE (11:09)
[2018-01-06] MEDS ORDERED: Heparin 10,000 UNITS/1 ML VIAL ONE (11:09)
[2018-01-06] MEDS ORDERED: Bupivacaine HCl 0.5%/Epinephrine 1:200,000/PF 30 ml Vial ONE (11:09)
[2018-01-06] MEDS ORDERED: Heparin 1,000 UNITS/ML VIAL ONE (11:11)
[2018-01-06] MEDS ORDERED: Promethazine HCl 25 MG/ML VIAL SLOW IVP PRN (12:10)
[2018-01-06] MEDS ORDERED: Promethazine HCl 25 MG/ML VIAL IM PRN (12:10)
[2018-01-06] MEDS ORDERED: Ondansetron HCl/PF 4 MG/2 ML Vial IVP PRN (12:10)
[2018-01-06] MEDS: HYDROcodone/Acetaminophen 5/325 mg Tablet PO SCH ×3 (13:04→23:27)
--- NOTE | 2018-01-06 13:11 | RAD ---
CHEST 1 VIEW: INDICATION: Dialysis catheter placement. COMPARISON: Prior exam dated 12/29/2017. FINDINGS: There are stable calcified nodules within the right lung. There is a new right IJ dialysis catheter projecting in the region of the right atrium. Cardiomegaly is stable. No pneumothorax is evident. IMPRESSION: New right internal jugular dialysis catheter without evidence of pneumothorax. POS: MATEO
[2018-01-06] MEDS ORDERED: PROPOFOL 200 MG/20 ML VIAL ONE (13:33)
--- NOTE | 2018-01-06 13:43 | OP ---
PREOPERATIVE DIAGNOSES: End-stage renal disease, hyperkalemia, need of dialysis access, status post AV fistula, peritoneal dialysis catheter placement, and repair of incisional hernia. POSTOPERATIVE DIAGNOSES: End-stage renal disease, hyperkalemia, need of dialysis access, status post AV fistula, peritoneal dialysis catheter placement, and repair of incisional hernia. PROCEDURE: Right IJ cuffed tunnel hemodialysis catheter. Ultrasound fluoroscopy used. SURGEON: Nicko Prather M.D. ANESTESIA: Intravenous sedation, local 0.5% Marcaine with epinephrine 30 mL mixed with Xylocaine, 10 mL. PROCEDURE IN DETAIL: The patient was taken to the operating room where intravenous sedation, neck an d chest were prepared with ChloraPrep, draped in routine fashion. Local anesthetic mixture of 0.5% M arcaine with epinephrine, 30 mL, mixed with 2% Xylocaine, 10 mL infiltrated into skin and subcutaneou s tissue. Using ultrasound guidance, the right internal jugular vein was cannulated with trocar cath eter. J-wire threaded. Trocar catheter removed. Skin incised and enlarged sharply with an 11 blade . Stab incision made over the right chest. Using the tunneling device, precurved angiodynamics cuff ed tunnel hemodialysis catheter tunneled between the two incisions, placing the fabric cuff beneath t he skin exit site and catheter secured with 2 interrupted sutures of 3-0 nylon. Dermabond Biopatch a pplied. Smaller and medium sized dilators placed over the J-wire into the internal jugular vein praneeth tara. Dilator and pull-away sheath placed over the J-wire in superior vena cava and dilator and J-wir e were removed. Catheter placed with pull-away sheath. Pull-away sheath removed. Fluoroscopically, catheter noted to be in good position as the platysma approximated with 4-0 Monocryl, skin with subd ermal 4-0 Monocryl and DermaGlue applied. Each port aspirated blood and flushed with saline solution and heparinized saline solution 1000 units heparin per mL indicated volume of the port. Fluoroscopi c catheter noted to be in good position.
[2018-01-06 14:30] LABS: Hep C PCR-Quant HCV Not Detected IU/mL (.)
[2018-01-06] MEDS: Amlodipine 10 MG TAB PO SCH (15:51)
[2018-01-06] MEDS: Furosemide 40 MG TAB PO SCH (15:51)
--- NOTE | 2018-01-06 16:43 | EKG ---
Test Reason : Blood Pressure : / mmHG Vent. Rate : 069 BPM Atrial Rate : 069 BPM P-R Int : 214 ms QRS Dur : 098 ms QT Int : 366 ms P-R-T Axes : 055 033 094 degrees QTc Int : 392 ms Sinus rhythm with 1st degree A-V block Nonspecific T wave abnormality Abnormal ECG When compared with ECG of 09-MAR-2017 18:45, No significant change was found Confirmed by DR. Tyron KAYE ([id number]) on 01/06/2018 4:43:03 PM Referred By: GEGE Sarah Confirmed By:DR. Tyron KAYE
[2018-01-06] MEDS: Atorvastatin Calcium 40 MG TAB PO SCH (20:05)
[2018-01-06] MEDS: Gabapentin 300 MG CAP PO SCH (20:05)
[2018-01-07] MEDS: HYDROcodone/Acetaminophen 5/325 mg Tablet PO SCH ×3 (05:48→18:07)
--- NOTE | 2018-01-07 06:00 | PDOC.FM ---
- Subjective Subjective: Pt reports feeling better this AM. Pain is more controlled and pt does not want to request any more iv pain meds. He also reports that his cough has resolved with incentive spirometry. no cough no sob, no nausea no vomiting - Objective MAR Reviewed: Yes Vital Signs & Weight: Vital Signs (12 hours) Temp Pulse Resp BP Pulse Ox 01/07/18 00:00 98.3 F 58 L 18 139/64 93 L 01/06/18 20:06 85 01/06/18 20:00 98 Weight Weight 94.801 kg I&O: 01/05/18 01/06/18 01/07/18 06:59 06:59 06:59 Intake Total 680 720 720 Output Total 250 1350 550 Balance 430 -630 170 Result Diagrams: 12/30/17 04:12 01/07/18 05:17 <Gregory Huertas - Last Filed: 01/07/18 11:15> - Objective Vital Signs & Weight: Vital Signs (12 hours) Temp Pulse Resp BP BP Pulse Ox 01/07/18 09:19 65 01/07/18 09:18 65 154/72 H 01/07/18 07:55 65 154/72 H 01/07/18 07:35 98.2 F 64 14 198/87 H 92 L 01/07/18 04:00 98.2 F 65 18 94 L 01/07/18 00:00 98.3 F 58 L 18 139/64 93 L Weight Weight 94.302 kg I&O: 01/06/18 01/07/18 01/08/18 06:59 06:59 06:59 Intake Total 720 960 Output Total 1350 1450 Balance -630 -490 Result Diagrams: 12/30/17 04:12 01/07/18 05:17 <Brendan Vogel - Last Filed: 01/07/18 11:53> Phys Exam - Physical Examination Constitutional: NAD HEENT: moist MMs, sclera anicteric Neck: no JVD, full ROM Respiratory: no wheezing, clear to auscultation bilateral Cardiovascular: RRR, no significant murmur Gastrointestinal: soft, non-tender Musculoskeletal: no edema, pulses present Neurological: normal sensation, moves all 4 limbs Psychiatric: normal affect, A&O x 3 Skin: normal turgor, cap refill <2 seconds <Gregory Huertas - Last Filed: 01/07/18 11:15> Dx/Plan (1) Acute exacerbation of CHF (congestive heart failure) Code(s): I50.9 - HEART FAILURE, UNSPECIFIED Status: Acute (2) CKD (chronic kidney disease) stage 4, GFR 15-29 ml/min Code(s): N18.4 - CHRONIC KIDNEY DISEASE, STAGE 4 (SEVERE) Status: Chronic (3) CAD (coronary artery disease) Code(s): I25.10 - ATHSCL HEART DISEASE OF [place] CORONARY ARTERY W/O ANG PCTRS Status: Chronic (4) Diabetes Code(s): E11.9 - TYPE 2 DIABETES MELLITUS WITHOUT COMPLICATIONS Status: Chronic Qualifiers: Diabetes mellitus type: type 2 Diabetes mellitus complication status: with kidney complications Diabetes mellitus complication detail: with chronic kidney disease Chronic kidney disease stage: stage 4 (severe) (5) HLD (hyperlipidemia) Code(s): E78.5 - HYPERLIPIDEMIA, UNSPECIFIED Status: Chronic (6) Hypertension Code(s): I10 - ESSENTIAL (PRIMARY) HYPERTENSION Status: Chronic - Plan Plan: Acute on chronic kidney disease stage V A- Pt is s/p PD cath placement, L wrist Kiran fistula, and subxiphoid hernia repair day 2. Potassium 4.4 down from 5.5 yesterday after dialysis, Kidney fxn worsening from yesterday. P--will possibly get more hemodialysis today Hyperkalemia A- lvl is 4.4 today P- monitor daily BMP Cough, resolved A- resolved, likely was 2/2 post op pain and decreased tidal volume, pt is afebrile P- Will control pain -incentive spirometry -monitor vitals and symptoms Hepatitis C - Antibody positive on yesterdays test. Pt aware and reports cure of disease 2 years ago. Acute dyspnea, from volume overload secondary to CHF A- Resolved. Echo showed HFpEF of 50-55% w/ diastolic dysfunction. Cards on board, appreciate recs (report cardiovascular status stable). P- continue 40mg PO lasix per nephro recs - strict I/Os, daily weights, & HH, fluid & salt restricted diet. Coronary artery disease A- Aware, s/p CABG. P- Will continue meds per cardiology recs Sinus bradycardia A- Patient is asymptomatic, fatigue likely 2/2 CHF exacerbation and CKD P- Will continue to monitor. - Cards on board, f/u on recs. Diabetes mellitus II - A1c 6.4 on admission. - Will continue home meds & AC/HS accuchecks. Elevated lipase A- Likely related to CKD and only mildly elevated at just over 200, no s/s of acute pancreatitis. UDS negative. P- monitor for new symptoms Hypertension - Will continue Norvasc at 10mg QD and hydralazine TID per cards recs. - Will continue to monitor. <Gregory Huertas - Last Filed: 01/07/18 11:15> Attending Addendum - Attending Addendum Date/Time: 01/07/18 1152 I personally evaluated the patient and discussed the management with Dr. Huertas. I agree with and repeated the History, Examination, Assessment and Plan documented above with any addition or exceptions noted below. Pt doing well. Dispo pending nephrology. <Brendan Vogel - Last Filed: 01/07/18 11:53>
[2018-01-07 06:17] LABS: ALT (SGPT) 7 U/L (8-55); AST (SGOT) 20 U/L (5-34); Albumin 2.7 g/dL (3.5-5.0); Alkaline Phosphatase 91 U/L (40-150); Anion Gap 7 mmol/L (10-20); BUN (Urea Nitrogen) 45 mg/dL (8.4-25.7); Bilirubin, Total 0.3 mg/dL (0.2-1.2); Calc. Creatinine Clearance 23 mL/min (70-130); Calcium 8.3 mg/dL (7.8-10.44); Carbon Dioxide 29 mmol/L (22-29); Chloride 105 mmol/L (98-107); Estimated GFR-MDRD 12; Globulin 2.7 g/dL (2.4-3.5); Glucose 145 mg/dL (70-105); Potassium 4.4 mmol/L (3.5-5.1); Protein, Total 5.4 g/dL (6.0-8.3); Sodium 137 mmol/L (136-145)
[2018-01-07] MEDS: Sodium Bicarbonate Tab 325 MG TAB PO SCH ×2 (09:18→22:00)
[2018-01-07] MEDS: hydrALAZINE 10 MG TAB PO SCH ×3 (09:18→22:15)
[2018-01-07] MEDS: Fish Oil 1,000 MG CAP PO SCH ×2 (09:18→22:00)
[2018-01-07] MEDS: Furosemide 40 MG TAB PO SCH (09:19)
[2018-01-07] MEDS: Amlodipine 10 MG TAB PO SCH (09:19)
[2018-01-07] MEDS ORDERED: Heparin 1,000 UNITS/ML VIAL ONE (11:11)
--- NOTE | 2018-01-07 11:39 | PRG ---
DATE OF SERVICE: 01/07/2018. SUBJECTIVE: This is a 57-year-old gentleman being seen for end-stage renal disease. The patient den ies any nausea, vomiting or chest pain. PHYSICAL EXAMINATION: GENERAL: Patient is awake and alert. VITAL SIGNS: Afebrile, pulse 65, breathing at 16, blood pressure 154/72. GENERAL APPEARANCE AND MENTAL STATUS: Fair. HEAD/NECK: Normocephalic. Atraumatic. EYES: EOMI. No deformity. EARS: Clear. No ulcers. NOSE: Intact. No lesions. MOUTH: Clear. No discharge. THROAT: Clear. No exudate. LUNGS: Clear. No crackles. CARDIAC: S1, S2. No rub. ABDOMEN: Benign. BS+. GENITALIA/RECTUM: Zavala absent. BACK/EXTREMITIES: Edema 0+ Ulcer-. NEUROLOGICAL: Alert and motor intact. SKIN: Rash- Bruise- LYMPHATICS: Edema- Ulcer-. LABORATORY DATA: Show hemoglobin 12.7, creatinine 4.2. ASSESSMENT AND RECOMMENDATIONS: 1. Stage 6 chronic kidney disease, we will plan hemodialysis. 2. Hypertension, stable. 3. Anemia, stable. 4. Medications based on GFR are appropriate. Discharge planning is in progress.
[2018-01-07] MEDS: HumaLOG 300 UNITS/3 ML VIAL SC PRN (11:49)
[2018-01-07] MEDS: Gabapentin 300 MG CAP PO SCH (22:13)
[2018-01-07] MEDS: Atorvastatin Calcium 40 MG TAB PO SCH (22:13)
[2018-01-08] MEDS: HYDROcodone/Acetaminophen 5/325 mg Tablet PO SCH (00:44)
[2018-01-08 05:40] LABS: ALT (SGPT) Less than 7 U/L (8-55); AST (SGOT) 16 U/L (5-34); Albumin 2.6 g/dL (3.5-5.0); Alkaline Phosphatase 102 U/L (40-150); Anion Gap 10 mmol/L (10-20); BUN (Urea Nitrogen) 35 mg/dL (8.4-25.7); Bilirubin, Total 0.3 mg/dL (0.2-1.2); Calc. Creatinine Clearance 27 mL/min (70-130); Calcium 7.9 mg/dL (7.8-10.44); Carbon Dioxide 27 mmol/L (22-29); Chloride 104 mmol/L (98-107); Estimated GFR-MDRD 15; Globulin 2.9 g/dL (2.4-3.5); Glucose 251 mg/dL (70-105); Potassium 4.1 mmol/L (3.5-5.1); Protein, Total 5.5 g/dL (6.0-8.3); Sodium 137 mmol/L (136-145)
[2018-01-08] MEDS ORDERED: HYDROcodone/Acetaminophen 5/325 mg Tablet PO PRN (06:16)
--- NOTE | 2018-01-08 06:21 | PDOC.FM ---
- Subjective Subjective: Pt feeling well this AM, no acute changes over night. Reports decreased pain and decreased need for pain meds. Continues using incentive spirometry. No fever/chills, no sob no cough, no cp no palpitations. - Objective MAR Reviewed: Yes Vital Signs & Weight: Vital Signs (12 hours) Temp Pulse Resp BP Pulse Ox 01/08/18 04:00 99.3 F 64 15 139/67 94 L 01/07/18 22:15 60 01/07/18 20:00 98.9 F 64 18 127/63 94 L Weight Weight 94.302 kg I&O: 01/06/18 01/07/18 01/08/18 06:59 06:59 06:59 Intake Total 720 960 580 Output Total 1350 1450 2775 [employer]) -992 -[phone] -[phone] Result Diagrams: 12/30/17 04:12 01/08/18 04:41 <Gregory Huertas - Last Filed: 01/08/18 07:41> - Objective Vital Signs & Weight: Vital Signs (12 hours) Temp Pulse Resp BP BP Pulse Ox 01/08/18 11:52 53 L 16 131/65 95 01/08/18 09:50 62 114/59 L 01/08/18 08:09 66 01/08/18 08:08 66 205/90 H 01/08/18 07:22 97.7 F 66 14 205/90 H 96 01/08/18 04:00 99.3 F 64 15 139/67 94 L Weight Weight 94.302 kg I&O: 01/07/18 01/08/18 01/09/18 06:59 06:59 06:59 Intake Total 960 580 Output Total 1450 2775 [employer] -436 -1092 Result Diagrams: 12/30/17 04:12 01/08/18 04:41 <Brendan Vogel - Last Filed: 01/08/18 13:04> Phys Exam - Physical Examination Constitutional: NAD HEENT: moist MMs, sclera anicteric Neck: supple, full ROM Respiratory: no wheezing, clear to auscultation bilateral Cardiovascular: RRR, no significant murmur Gastrointestinal: non-tender incisions clean dry and intact Musculoskeletal: no edema, pulses present Neurological: normal sensation, moves all 4 limbs Psychiatric: normal affect, A&O x 3 Skin: no rash, normal turgor <Gregory Huertas - Last Filed: 01/08/18 07:41> Dx/Plan (1) Acute exacerbation of CHF (congestive heart failure) Code(s): I50.9 - HEART FAILURE, UNSPECIFIED Status: Acute (2) CKD (chronic kidney disease) stage 4, GFR 15-29 ml/min Code(s): N18.4 - CHRONIC KIDNEY DISEASE, STAGE 4 (SEVERE) Status: Chronic (3) CAD (coronary artery disease) Code(s): I25.10 - ATHSCL HEART DISEASE OF [place] CORONARY ARTERY W/O ANG PCTRS Status: Chronic (4) Diabetes Code(s): E11.9 - TYPE 2 DIABETES MELLITUS WITHOUT COMPLICATIONS Status: Chronic Qualifiers: Diabetes mellitus type: type 2 Diabetes mellitus complication status: with kidney complications Diabetes mellitus complication detail: with chronic kidney disease Chronic kidney disease stage: stage 4 (severe) (5) HLD (hyperlipidemia) Code(s): E78.5 - HYPERLIPIDEMIA, UNSPECIFIED Status: Chronic (6) Hypertension Code(s): I10 - ESSENTIAL (PRIMARY) HYPERTENSION Status: Chronic - Plan Plan: Acute on chronic kidney disease stage V A- Pt is s/p PD cath placement, L wrist Kiran fistula, and subxiphoid hernia repair day 2. Potassium 4.1 down from 4.4 yesterday after dialysis P- arrangements being made for outpatient dialysis per Dr. Coronado -f/u with nephro recs and disposition Hyperkalemia A- lvl is 4.1 today P- monitor daily BMP Cough, resolved A- resolved, likely was 2/2 post op pain and decreased tidal volume, pt remains afebrile P- Will control pain -incentive spirometry -monitor vitals and symptoms Hepatitis C - Antibody positive on yesterdays test. Pt aware and reports cure of disease 2 years ago. Acute dyspnea, from volume overload secondary to CHF A- Resolved. Echo showed HFpEF of 50-55% w/ diastolic dysfunction. Cards on board, appreciate recs (report cardiovascular status stable). P- continue 40mg PO lasix per nephro recs - strict I/Os, daily weights, & HH, fluid & salt restricted diet. Coronary artery disease A- Aware, s/p CABG. P- Will continue meds per cardiology recs Sinus bradycardia A- Patient is asymptomatic, fatigue likely 2/2 CHF exacerbation and CKD P- Will continue to monitor. - Cards on board, f/u on recs. Diabetes mellitus II - A1c 6.4 on admission. - Will continue home meds & AC/HS accuchecks. Elevated lipase A- Likely related to CKD and only mildly elevated at just over 200, no s/s of acute pancreatitis. UDS negative. P- monitor for new symptoms Hypertension - Will continue Norvasc at 10mg QD and hydralazine TID per cards recs. - Will continue to monitor. <Gregory Huertas - Last Filed: 01/08/18 07:41> Attending Addendum - Attending Addendum Date/Time: 01/08/18 7935 I personally evaluated the patient and discussed the management with Dr. Huertas and team. I agree with and repeated the History, Examination, Assessment and Plan documented above with any addition or exceptions noted below. <Brendan Vogel - Last Filed: 01/08/18 13:04>
[2018-01-08] MEDS: Furosemide 40 MG TAB PO SCH (08:08)
[2018-01-08] MEDS: Fish Oil 1,000 MG CAP PO SCH ×2 (08:08→21:39)
[2018-01-08] MEDS: hydrALAZINE 10 MG TAB PO SCH ×3 (08:08→21:41)
[2018-01-08] MEDS: Amlodipine 10 MG TAB PO SCH (08:09)
[2018-01-08] MEDS: HYDROcodone/Acetaminophen 5/325 mg Tablet PO PRN ×3 (08:09→22:03)
[2018-01-08] MEDS: Sodium Bicarbonate Tab 325 MG TAB PO SCH ×2 (08:12→21:41)
--- NOTE | 2018-01-08 14:57 | PRG ---
DATE OF SERVICE: 01/08/2018 SUBJECTIVE: A 57-year-old gentleman being seen for end-stage renal disease. The patient denies any nausea, vomiting or chest pain. PHYSICAL EXAMINATION: GENERAL: Patient is awake. VITAL SIGNS: Afebrile, pulse 75, breathing 16, blood pressure was 131/65. HEAD/NECK: Normocephalic. Atraumatic. EYES: EOMI. No deformity. EARS: Clear. No ulcers. NOSE: Intact. No lesions. MOUTH: Clear. No discharge. THROAT: Clear. No exudate. LUNGS: Clear. No crackles. CARDIAC: S1, S2. No rub. ABDOMEN: Benign. BS+. GENITALIA/RECTUM: Zavala absent. BACK/EXTREMITIES: Edema 0+ Ulcer- NEUROLOGICAL: Alert and motor intact. SKIN: Rash- Bruise- LYMPHATICS: Edema- Ulcer- LABORATORY DATA: Show hemoglobin 12.7, creatinine 4.0. ASSESSMENT AND RECOMMENDATIONS: 1. Stage 6 chronic kidney disease, plan dialysis tomorrow. 2. Hypertension, stable. 3. Anemia, stable. 4. Medications based on glomerular filtration rate are appropriate.
[2018-01-08] MEDS: HumaLOG 300 UNITS/3 ML VIAL SC PRN ×2 (17:49→21:46)
[2018-01-08] MEDS: Gabapentin 300 MG CAP PO SCH (21:40)
[2018-01-08] MEDS: Atorvastatin Calcium 40 MG TAB PO SCH (21:40)
[2018-01-09] MEDS: HYDROcodone/Acetaminophen 5/325 mg Tablet PO SCH (02:32)
[2018-01-09] MEDS: HYDROcodone/Acetaminophen 5/325 mg Tablet PO PRN (04:25)
[2018-01-09 05:49] LABS: ALT (SGPT) Less than 7 U/L (8-55); AST (SGOT) 19 U/L (5-34); Albumin 2.7 g/dL (3.5-5.0); Alkaline Phosphatase 99 U/L (40-150); Anion Gap 11 mmol/L (10-20); BUN (Urea Nitrogen) 34 mg/dL (8.4-25.7); Bilirubin, Total 0.3 mg/dL (0.2-1.2); Calc. Creatinine Clearance 24 mL/min (70-130); Carbon Dioxide 27 mmol/L (22-29); Chloride 104 mmol/L (98-107); Estimated GFR-MDRD 13; Globulin 2.9 g/dL (2.4-3.5); Glucose 156 mg/dL (70-105); Protein, Total 5.6 g/dL (6.0-8.3); Sodium 138 mmol/L (136-145)
--- NOTE | 2018-01-09 06:05 | PDOC.FM ---
- Subjective Subjective: Pt was seen during dialysis today. Pt feeling well, decreased pain in general with good control. No complaints at this time. Feels ready for home today and reports appoinment in place with dialysis center on [address] tomorrow no fever/chills, no sob no cough, no cp no palpitations - Objective MAR Reviewed: Yes Vital Signs & Weight: Vital Signs (12 hours) Temp Pulse Resp BP BP BP Pulse Ox 01/09/18 03:36 98.6 F 59 L 16 174/78 H 96 01/08/18 23:50 97.4 F L 63 16 138/74 96 01/08/18 21:41 57 L 140/67 01/08/18 20:00 98.2 F 57 L 20 140/67 96 Weight Weight 93.894 kg I&O: 01/07/18 01/08/18 01/09/18 06:59 06:59 06:59 Intake Total 960 580 390 Output Total 1450 2775 1150 Balance -490 -2195 -760 Result Diagrams: 12/30/17 04:12 01/09/18 04:53 <Gregory Huertas - Last Filed: 01/09/18 08:05> - Objective Vital Signs & Weight: Vital Signs (12 hours) Temp Pulse Resp BP BP Pulse Ox 01/09/18 11:48 98.8 F 61 16 166/82 H 96 01/09/18 10:42 69 166/82 H 01/09/18 10:41 69 166/82 H 01/09/18 08:00 96 Weight Weight 93.894 kg I&O: 01/08/18 01/09/18 01/10/18 06:59 06:59 06:59 Intake Total 580 1110 500 Output Total 2775 2150 2400 Balance -2195 -1040 -1900 Result Diagrams: 12/30/17 04:12 01/09/18 04:53 <Lisa Bear - Last Filed: 01/09/18 15:36> Phys Exam - Physical Examination Constitutional: NAD HEENT: moist MMs, sclera anicteric Neck: no JVD, supple Respiratory: no wheezing, clear to auscultation bilateral Cardiovascular: RRR, no significant murmur Gastrointestinal: soft, non-tender incisions clean/dry/intact Musculoskeletal: no edema, pulses present Neurological: normal sensation, moves all 4 limbs Psychiatric: normal affect, A&O x 3 Skin: no rash, normal turgor <Gregory Huertas - Last Filed: 01/09/18 08:05> Dx/Plan (1) CKD (chronic kidney disease) stage 5, GFR less than 15 ml/min Code(s): N18.5 - CHRONIC KIDNEY DISEASE, STAGE 5 Status: Acute (2) Acute exacerbation of CHF (congestive heart failure) Code(s): I50.9 - HEART FAILURE, UNSPECIFIED Status: Acute (3) CAD (coronary artery disease) Code(s): I25.10 - ATHSCL HEART DISEASE OF [place] CORONARY ARTERY W/O ANG PCTRS Status: Chronic (4) Diabetes Code(s): E11.9 - TYPE 2 DIABETES MELLITUS WITHOUT COMPLICATIONS Status: Chronic Qualifiers: Diabetes mellitus type: type 2 Diabetes mellitus complication status: with kidney complications Diabetes mellitus complication detail: with chronic kidney disease Chronic kidney disease stage: stage 4 (severe) (5) HLD (hyperlipidemia) Code(s): E78.5 - HYPERLIPIDEMIA, UNSPECIFIED Status: Chronic (6) Hypertension Code(s): I10 - ESSENTIAL (PRIMARY) HYPERTENSION Status: Chronic - Plan Plan: Acute on chronic kidney disease stage V A- Pt is s/p PD cath placement, L wrist Kiran fistula, and subxiphoid hernia repair and tunnel cath placement. Potassium 4 today before dialysis. Cr continues to decrease with dialysis. P- arrangements being made for outpatient dialysis per Dr. Coronado -f/u with nephro recs and disposition, probably DC today after dialysis Hyperkalemia A- lvl is 4.0 today P- monitor daily BMP Cough, resolved A- resolved, likely was 2/2 post op pain and decreased tidal volume, pt remains afebrile P- Will control pain -incentive spirometry -monitor vitals and symptoms Hepatitis C - Antibody positive on yesterdays test. Pt aware and reports cure of disease 2 years ago. Acute dyspnea, from volume overload secondary to CHF A- Resolved. Echo showed HFpEF of 50-55% w/ diastolic dysfunction. Cards on board, appreciate recs (report cardiovascular status stable). P- continue 40mg PO lasix per nephro recs - strict I/Os, daily weights, & HH, fluid & salt restricted diet. Coronary artery disease A- Aware, s/p CABG. P- Will continue meds per cardiology recs Sinus bradycardia A- Patient is asymptomatic, initial fatigue resolved, likely 2/2 CHF exacerbation and CKD P- Will continue to monitor. - Cards on board, f/u on recs. Diabetes mellitus II - A1c 6.4 on admission. - Will continue home meds & AC/HS accuchecks. Elevated lipase A- Likely related to CKD and only mildly elevated at just over 200, no s/s of acute pancreatitis. UDS negative. P- monitor for new symptoms Hypertension - Will continue Norvasc at 10mg QD and hydralazine TID per cards recs. - Will continue to monitor. <Gregory Huertas - Last Filed: 01/09/18 08:05> Attending Addendum - Attending Addendum Date/Time: 01/09/18 [id number] I personally evaluated the patient and discussed the management with Dr. Huertas. I agree with the History, Examination, Assessment and Plan documented above with any addition or exceptions noted below. The patient is doing well. He was seen during dialysis. Case management is arranging a dialysis chair. If this is arranged he can d/c home today. He has been cleared by nephrology. <Lisa Bear - Last Filed: 01/09/18 15:36>
[2018-01-09] MEDS ORDERED: HYDROcodone/Acetaminophen 5/325 mg Tablet PO PRN (06:07)
[2018-01-09] MEDS: HumaLOG 300 UNITS/3 ML VIAL SC PRN (06:39)
[2018-01-09] MEDS ORDERED: Heparin 10,000 UNITS/ 10 ML VIAL ONE (09:00)
[2018-01-09] MEDS: Amlodipine 10 MG TAB PO SCH (10:41)
[2018-01-09] MEDS: Sodium Bicarbonate Tab 325 MG TAB PO SCH (10:42)
[2018-01-09] MEDS: hydrALAZINE 10 MG TAB PO SCH (10:42)
[2018-01-09] MEDS: Fish Oil 1,000 MG CAP PO SCH (10:42)
[2018-01-09 10:43] VITALS: BP 166/82
[2018-01-09] MEDS: Furosemide 40 MG TAB PO SCH (10:50)
[2018-01-09 11:49] VITALS: TEMP 98.8
--- NOTE | 2018-01-09 19:04 | PRG ---
DATE OF SERVICE: 01/09/2018 SUBJECTIVE: Patient was seen and examined at bedside and overnight events noted. Patient denies any shortness of breath or chest pain or palpitation. No history of nausea or vomiting or diarrhea or f ever or chills or cramps. OBJECTIVE: GENERAL: This is a well-built male in no apparent distress. VITAL SIGNS: Temperature 98, pulse 61, respiratory rate 16, blood pressure 166/82. HEENT: Atraumatic, normocephalic. Oral mucosa is moist. NECK: Supple. CARDIOVASCULAR: S1, S2 heard. Rate and rhythm regular. RESPIRATORY: Clear to auscultation. GASTROINTESTINAL: Abdomen is soft. MUSCULOSKELETAL: No tenderness. No edema. DERMATOLOGIC: No skin rash. NEUROLOGIC: Alert and awake and oriented x3. No focal neurologic deficits. Moving all the extremiti es. PSYCHIATRIC: Mood and affect normal. LABORATORY DATA: Potassium is 4.0, BUN . ASSESSMENT AND PLAN: 1. End-stage renal disease. Continue dialysis as tolerated. Patient had dialysis today. 2. Hypertension. 3. Continue dialysis as tolerated. The patient was advised to follow up at the dialysis clini c.
--- NOTE | 2018-01-09 22:14 | DIS-2 ---
DATE OF ADMISSION: 12/31/2017 DATE OF DISCHARGE: 01/09/2018 RESIDENT: Dr. Gregory Huertas. ADMITTING ATTENDING: Awais Fair MD DISCHARGE ATTENDING: Dr. Lisa Bear. CONSULTATIONS: Nephrology, Dr. Coronado and cardiology, Dr. Christianson. PROCEDURES: 1. On 01/03/2018, marking ultrasound. 2. On 01/05/2018, chest x-ray impression: Left costophrenic angle blunting, small possible left ple ural effusion, minimal cardiomegaly, no overt edema. 3. On 01/06/2018, chest x-ray impression: New right internal jugular dialysis catheter without evid ence of pneumothorax. 4. On 01/04/2018, laparoscopic peritoneal dialysis catheter placement, double-cuffed pigtail open in cisional hernia repair, subxiphoid with resection of xiphoid, and 8.4 cm mesh used to reinforce the f ascial closure. Left arm Kiran fistula calibration of 3.5 mm coronary dilator outflow. 5. On 01/06/2018, right IJ cuffed tunnel hemodialysis catheter, ultrasound for fluoroscopy used. PRIMARY DIAGNOSES: Congestive heart failure exacerbation and acute on chronic kidney disease. SECONDARY DIAGNOSES: Type 2 diabetes, coronary artery disease, status post coronary artery bypass gr afting, hypertension, hyperlipidemia. DISCHARGE MEDICATIONS: 1. Sodium bicarbonate 325 p.o. b.i.d. 2. Fish oil 1 cap p.o. b.i.d. 3. Aspirin 81 mg p.o. daily. 4. Amlodipine 10 mg p.o. q.a.m. 5. Gabapentin 300 mg p.o. at bedtime. 6. Atorvastatin 40 mg p.o. at bedtime. 7. Glipizide 5 mg p.o. daily. 8. Furosemide 40 mg p.o. daily. 9. Hydralazine 10 mg p.o. t.i.d. 10. Isosorbide mononitrate 30 mg p.o. daily. 11. [place] 5 one tab p.o. q.8 hours p.r.n. DISCONTINUED MEDICATIONS: 1. Amlodipine 5 mg p.o. q.p.m. 2. Metoprolol succinate 25 mg p.o. daily. HOSPITAL COURSE: This is a 57-year-old male who presented from the [facility] with bilateral lower ex tremity swelling and shortness of breath. Patient was admitted for treatment of congestive heart andrew lure exacerbation and initially treated with Lasix. Cardiology was consulted, as patient showed clin ical improvement. It was also noted that patient had asymptomatic bradycardia and for that reason, h ome medication metoprolol was stopped. Patient showed clinical improvement of congestive heart failu re exacerbation but had an acute on chronic kidney injury during hospital stay. Nephrology was consu lted, as patient had preexisting stage 4 chronic kidney disease. Patient became hyperkalemic requiri ng multiple doses of Kayexalate, though he remained asymptomatic and BUN and creatinine continued to increase. Patient was deemed to have stage 5 kidney disease and plans were made for dialysis. Robby palacios had a peritoneal dialysis catheter placed, during which that procedure, he also had a left wrist C imino fistula placement and a subxiphoid abdominal hernia repair accomplished. The next day, patient 's potassium and BUN and creatinine continued to increase and it was deemed necessary for patient to have more urgent dialysis and so a hemodialysis cath was placed and patient had hemodialysis. Potass ium decreased within normal limits and patient received 2 more rounds of dialysis. Arrangements were made for continued dialysis as an outpatient and once patient was deemed stable, arrangements were m cristopher for discharge to home. Additionally, hospital stay was complicated by a cough postop, which reso lved with incentive spirometry. Patient remained afebrile the entire time. Type 2 diabetes was swapna ged with patient's home medication and hypertension medications were slightly changed per Cardiology' s recommendations. Patient was discharged with Norvasc 10 mg every day, hydralazine 10 mg t.i.d. and Imdur (isosorbide mononitrate). DISPOSITION: Stable. DISCHARGE INSTRUCTIONS: 1. Location: Home. 2. Diet: Renal diet, low-sodium. 3. Activity as tolerated. 4. Follow up: A. Cardiac rehab in [place]. B. Dr. Nicko Prather in 2-[address] Chaparro Christianson in 2-[address] Song Coronado in [address] Yonas Adames in 1 week.
== END 2018-01-09 13:17 | disposition home or self-care (01) | DRG 264 ==
LOC: ERS 18:46 → 2SW 23:16 → OBSVTOIN 12-31 08:19 → 2NO 12-31 09:35 → 2SW 12-31 09:46 → 2NO 12-31 10:59 → ONC 01-08 16:31
PROVIDERS: ADMIT Family Medicine; ATTEND Family Medicine
PROC: 031C0ZF Bypass Left Radial Artery to Lower Arm Vein, Open Approach (ICD-10-PCS; principal; 2018-01-04)
PROC: 0WHG43Z Insertion of Infusion Device into Peritoneal Cavity, Percutaneous Endoscopic Approach (ICD-10-PCS; 2018-01-04)
PROC: 0WUF0JZ Supplement Abdominal Wall with Synthetic Substitute, Open Approach (ICD-10-PCS; 2018-01-04)
PROC: 0JH63XZ Insertion of Tunneled Vascular Access Device into Chest Subcutaneous Tissue and Fascia, Percutaneous Approach (ICD-10-PCS; 2018-01-06)
PROC: 05HM33Z Insertion of Infusion Device into Right Internal Jugular Vein, Percutaneous Approach (ICD-10-PCS; 2018-01-06)
PROC: B543ZZA Ultrasonography of Right Jugular Veins, Guidance (ICD-10-PCS; 2018-01-06)
PROC: 5A1D70Z Performance of Urinary Filtration, Intermittent, Less than 6 Hours Per Day (ICD-10-PCS; 2018-01-06)
PROC: 5A1D70Z Performance of Urinary Filtration, Intermittent, Less than 6 Hours Per Day (ICD-10-PCS; 2018-01-09)
DX: I13.0 Hypertensive heart and chronic kidney disease with heart failure and stage 1 through stage 4 chronic kidney disease, or unspecified chronic kidney disease (principal); K85.90 Acute pancreatitis without necrosis or infection, unspecified; I50.33 Acute on chronic diastolic (congestive) heart failure; N18.4 Chronic kidney disease, stage 4 (severe); N17.9 Acute kidney failure, unspecified; E87.2 Acidosis; E78.5 Hyperlipidemia, unspecified; J44.9 Chronic obstructive pulmonary disease, unspecified; E11.22 Type 2 diabetes mellitus with diabetic chronic kidney disease; F17.210 Nicotine dependence, cigarettes, uncomplicated; R00.1 Bradycardia, unspecified; F32.9 Major depressive disorder, single episode, unspecified; L28.2 Other prurigo; K43.2 Incisional hernia without obstruction or gangrene; E87.5 Hyperkalemia; I42.9 Cardiomyopathy, unspecified; Z79.82 Long term (current) use of aspirin; I25.2 Old myocardial infarction; Z86.19 Personal history of other infectious and parasitic diseases; Z90.49 Acquired absence of other specified parts of digestive tract; Z95.1 Presence of aortocoronary bypass graft; Z95.5 Presence of coronary angioplasty implant and graft
CPT/HCPCS: 36415; 36416; 71045; 80053; 80061; 80306; 83036; 83735; 84100; 84443; 85025; 86580; 86704; 86706; 86803; 87340; 87522; 90935; 93005; 93010; 93306; 93798; 93970; 94760; 96374; C1752; C1769; C1781; C9113; G0257; G0365; J0670; J1644; J1815; J1940; J2001; J2270; J2704; J2720; J3010

== ENCOUNTER 2018-03-02 13:28 | Emergency (ER) | payer MEDICARE ==
[2018-03-02] MEDS ORDERED: Ketorolac Tromethamine 30 MG/ML VIAL ONE (14:13)
[2018-03-02 14:20] LABS: #Basophils 0.1 thou/uL (0.0-0.2); #Eosinphils 0.8 thou/uL (0.0-0.7); #Lymphocytes 3.2 thou/uL (1.20-3.40); #Monocytes 0.8 thou/uL (0.11-0.59); #Neutrophils 8.6 thou/uL (1.40-6.50); %Basophils 0.7 % (0.0-1.0); %Lymphocytes 23.6 % (21.0-51.0); %Monocytes 5.6 % (0.0-10.0); %Neutrophils 64.1 % (42.0-75.0); Hemoglobin 12.3 g/dL (14.0-18.0); Mean Corpuscular HGB CONC 34.3 g/dL (32.0-36.0); Mean Corpuscular Hemoglobin 31.9 pg (27.0-31.0); Mean Corpuscular Volume 92.9 fL (78.0-98.0); Mean Platelet Volume 8.2 fL (7.4-10.4); Platelet Count 257 thou/uL (130-400); RBC Distribution Width 11.4 % (11.5-14.5); Red Blood Cell (RBC) Count 3.84 mill/uL (4.70-6.10); White Blood Cell (WBC) Count 13.5 thou/uL (4.8-10.8)
[2018-03-02] MEDS ORDERED: Methocarbamol 1 GM in Sodium Chloride 0.9% 250 ML 250 ML IVPB SCH (14:30)
[2018-03-02 14:36] LABS: ALT (SGPT) 17 U/L (8-55); AST (SGOT) 13 U/L (5-34); Albumin 3.8 g/dL (3.5-5.0); Alkaline Phosphatase 96 U/L (40-150); Anion Gap 21 mmol/L (10-20); BUN (Urea Nitrogen) 97 mg/dL (8.4-25.7); Bilirubin, Total 0.4 mg/dL (0.2-1.2); Calc. Creatinine Clearance 0 mL/min (70-130); Calcium 8.9 mg/dL (7.8-10.44); Carbon Dioxide 20 mmol/L (22-29); Chloride 98 mmol/L (98-107); Estimated GFR-MDRD 9; Globulin 3.3 g/dL (2.4-3.5); Glucose 189 mg/dL (70-105); Potassium 3.6 mmol/L (3.5-5.1); Protein, Total 7.1 g/dL (6.0-8.3); Sodium 135 mmol/L (136-145)
--- NOTE | 2018-03-02 14:56 | CT ---
CT ABDOMEN AND PELVIS WITHOUT CONTRAST: Date: 03/02/18 HISTORY: 58-year-old male with right flank pain. Patient on dialysis. Right low back pain. FINDINGS: Absence of oral and IV contrast reduces the sensitivity of exam, particularly for evaluation of solid organs and bowel. Calcified pulmonary nodules noted on CT scan of chest dated 11/24/16 are again see n in the right lung base. There are calcified granulomas in the spleen. The patient is post cholecyst ectomy. No free air or free fluid is seen in the abdomen or pelvis. A peritoneal dialysis catheter is seen in the abdomen. There are vascular calcifications without evidence of aneurysmal dilatation of the abdo peter aorta. Degenerative changes are present in the spine. No calculi are seen in the kidneys, ureters, or the urinary bladder. No hydroureteronephrosis is seen on either side. There is a submucosal lipoma in the ascending colon. Colonic diverticulosis is prese nt without evidence of diverticulitis. A normal appearing appendix is noted. There is a 12.0 mm low d ensity lesion in the right renal cortex. IMPRESSION: 1. No evidence of urinary tract calculi/obstruction or appendicitis. 2. Probable 12.0 mm right renal cyst. Sonographic confirmation recommended. 3. Colonic diverticulosis. 4. Submucosal lipoma in the ascending colon. 5. Old granulomatous disease. POS: OFF
== END 2018-03-02 16:23 | disposition home or self-care (01) ==
LOC: ERS 13:28
DX: M54.41 Lumbago with sciatica, right side (principal); I25.10 Atherosclerotic heart disease of native coronary artery without angina pectoris; E11.9 Type 2 diabetes mellitus without complications; E78.5 Hyperlipidemia, unspecified; I10 Essential (primary) hypertension; F32.9 Major depressive disorder, single episode, unspecified; F41.9 Anxiety disorder, unspecified; F17.210 Nicotine dependence, cigarettes, uncomplicated
CPT/HCPCS: 36415; 74176; 80053; 85025; 96365; 96375; J1885; J2800; J7050

== ENCOUNTER 2018-04-20 23:58 | Observation (INO) | payer MEDICARE ==
[2018-04-21 00:35] LABS: #Basophils 0.1 thou/uL (0.0-0.2); #Eosinphils 0.6 thou/uL (0.0-0.7); #Lymphocytes 2.6 thou/uL (1.20-3.40); #Monocytes 0.7 thou/uL (0.11-0.59); #Neutrophils 11.4 thou/uL (1.40-6.50); %Basophils 0.6 % (0.0-1.0); %Eosinophils 4.1 % (0.0-10.0); %Lymphocytes 16.9 % (21.0-51.0); %Monocytes 4.3 % (0.0-10.0); %Neutrophils 74.1 % (42.0-75.0); Hemoglobin 12.2 g/dL (14.0-18.0); Mean Corpuscular HGB CONC 34.1 g/dL (32.0-36.0); Mean Corpuscular Hemoglobin 33.2 pg (27.0-31.0); Mean Corpuscular Volume 97.5 fL (78.0-98.0); Mean Platelet Volume 7.6 fL (7.4-10.4); Platelet Count 283 thou/uL (130-400); RBC Distribution Width 12.7 % (11.5-14.5); Red Blood Cell (RBC) Count 3.69 mill/uL (4.70-6.10); White Blood Cell (WBC) Count 15.3 thou/uL (4.8-10.8)
[2018-04-21 00:59] LABS: ALT (SGPT) 15 U/L (8-55); AST (SGOT) 18 U/L (5-34); Albumin 3.6 g/dL (3.5-5.0); Alkaline Phosphatase 81 U/L (40-150); Anion Gap 15 mmol/L (10-20); BUN (Urea Nitrogen) 67 mg/dL (8.4-25.7); Bilirubin, Total 0.4 mg/dL (0.2-1.2); Calc. Creatinine Clearance 0 mL/min (70-130); Calcium 8.7 mg/dL (7.8-10.44); Carbon Dioxide 28 mmol/L (22-29); Chloride 98 mmol/L (98-107); Estimated GFR-MDRD 10; Globulin 3.3 g/dL (2.4-3.5); Glucose 202 mg/dL (70-105); Potassium 3.1 mmol/L (3.5-5.1); Protein, Total 6.9 g/dL (6.0-8.3); Sodium 138 mmol/L (136-145)
[2018-04-21 01:21] LABS: CKMB 5.7 ng/mL (0-6.6)
--- NOTE | 2018-04-21 01:45 | PDOC.FPRHP ---
- History of Present Illness Chief Complaint: syncope History of Present Illness: The patient is a 58YOM w/ a PMH significant for ESRD on PD, HFpEF, DMII, and CAD s/p stents & CABG who presented to the ED after having a syncopal episode at home. Per the patient, he had visited his PCP the day prior to presentation and was started on 2 new medications, trazadone and ropironole, which he took for the first time this evening. The patient reports that after taking his new HS meds, he began to feel like he was "stoned out of his damn mind" and about 10 -15 minutes after feeling this way, he syncopized while sitting on the cough at home. He endorses some associated nausea before blacking out as well. Per the patient, his girlfriend who witnessed the episode did endorse some shaking but did not report any tongue biting, head trauma, or loss of control of his bladder. The patient reports losing some control of his bowels. However, the patient denied any post-ictal state or confusion and says he checked his BG shortly after and it was >200. He denies any previous history of syncopal episodes and denies any associated palpitations, chest pain, SOB, or vision changes. - Allergies/Adverse Reactions Allergies Allergy/AdvReac Type Severity Reaction Status Date / Time No Known Allergies Allergy Verified 04/21/18 03:35 - Home Medications Medication Instructions Recorded Confirmed Type Amlodipine [Norvasc] 5 mg PO QAM 12/30/17 04/21/18 History Aspirin Chewable [Aspirin Chewable 81 mg PO DAILY 12/30/17 04/21/18 History Tablet] Atorvastatin Calcium 40 mg PO HS 12/30/17 04/21/18 History Gabapentin 300 mg PO HS 12/30/17 04/21/18 History [place]-3 Fatty Acids/Fish Oil 1 cap PO BID 12/30/17 04/21/18 History [[place] 3 1,000 mg Softgel] glipiZIDE [glipiZIDE ER] 5 mg PO BID 12/30/17 04/21/18 History Furosemide [Lasix] 40 mg PO DAILY-AC #30 tab 01/09/18 04/21/18 Rx rOPINIRole HCl [Ropinirole HCl] 0.5 mg PO DAILY 04/21/18 04/21/18 History traZODone HCl [Trazodone HCl] 50 mg PO DAILY 04/21/18 04/21/18 History - History PMHx: HFpEF, DMII, HTN, HLD, ESRD on PD, CAD s/p CABG & stent placement, h/o GA x2 PSHx: 5V CABG, stent placement x10, hernia repair, cholecystectomy, cataract surgery, L arm fistula placement FHx: Mother- GA & CVA Father- CAD Sister- CVAs Social: Former IV drug user and drinker. Smoked 1-1.5ppd since age 9. Lives alone in [place]. - Review of Systems General: denies: fever/chills, weight/appetite/sleep changes Eyes: denies: eye pain, vision changes ENT: reports: other (no sore throat). denies: nasal congestion Respiratory: denies: cough, shortness of breath Cardiovascular: denies: chest pain, palpitation, edema Gastrointestinal: reports: nausea. denies: vomiting, diarrhea, constipation, abdominal pain Genitourinary: denies: incontinence, dysuria Skin: denies: rashes, lesions Musculoskeletal: denies: pain, tenderness Neurological: reports: syncope. denies: numbness, weakness Psychological: denies: anxiety, depression - Vital signs BP: 122/68 HR: 60 RR: 18 Tmax: 98.5F Pox: 98% on RA Wt: 89.721 kg - Physical Exam Constitutional: NAD, awake, alert and oriented, well developed HEENT: normocephalic and atraumatic, PERRLA, grossly normal vision, grossly normal hearing, MMM, oropharynx clear Neck: supple, FROM Heart: RRR, normal S1/S2, no murmurs/rubs/gallops, pulses present, other (trace edema in B/L LEs) Lungs: CTAB, no respiratory distress, good air movement, no rales/rhonchi, no wheezing, no retractions Abdomen: soft, non-tender, bowel sounds present Musculoskeletal: normal structure, ROM grossly normal Neurological: no focal deficit, CN II-XII intact (grossly) Skin: no rash/lesions, good turgor Heme/Lymphatic: no unusual bruising or bleeding, no purpura, no petechia Psychiatric: normal mood and affect, good judgment and insight, intact recent and remote memory FMR H&P: Results - Labs Result Diagrams: 04/21/18 00:27 04/21/18 00:27 Lab results: WBC 15.3 thou/uL (4.8-10.8) H 04/21/18 00:27 Hgb 12.2 g/dL (14.0-18.0) L 04/21/18 00: Hct 35.9 % (42.0-52.0) L 04/21/18: MCV 97.5 fL (78.0-98.0) 04/21/18 00: Plt Count 283 thou/uL (130-400) 04/21/18 00: Neutrophils % 74.1 % (42.0-75.0) 04/21/18 00: Sodium 138 mmol/L (136-145) 04/21/18: Potassium 3.1 mmol/L (3.5-5.1) L 04/21/18: Chloride 98 mmol/L (98-107) 04/21/18: Carbon Dioxide 28 mmol/L (22-29) 04/21/18 00: BUN 67 mg/dL (8.4-25.7) H 04/21/18 00:27 Creatinine 5.85 mg/dL (0.7-1.3) H 04/21/18: Glucose 202 mg/dL (70-105) H 04/21/18 00: Calcium 8.7 mg/dL (7.8-10.44) 04/21/18 00: Total Bilirubin 0.4 mg/dL (0.2-1.2) 04/21/18: AST 18 U/L (5-34) 04/21/18:27 ALT 15 U/L (8-55) 04/21/18 00: Alkaline Phosphatase 81 U/L (40-150) 04/21/18 00: CK-MB (CK-2) 5.7 ng/mL (0-6.6) 04/21/18 00: Serum Total Protein 6.9 g/dL (6.0-8.3) 04/21/18 00: Albumin 3.6 g/dL (3.5-5.0) 04/21/18: - EKG Interpretation EKst degree AV block w/ PACs, unchanged from previous EKG on last admission ~ 3 months ago - Radiology Interpretation CT scan - head Status: pending Chest x-ray Status: image reviewed by me (cardiomegaly), pending FMR H&P: A/P - Problem List (1) Syncope Status: Acute Code(s): R55 - SYNCOPE AND COLLAPSE (2) ESRD on peritoneal dialysis Status: Acute Code(s): N18.6 - END STAGE RENAL DISEASE; Z99.2 - DEPENDENCE ON RENAL DIALYSIS (3) Normocytic anemia Status: Acute Code(s): D64.9 - ANEMIA, UNSPECIFIED (4) Hypokalemia Status: Acute Code(s): E87.6 - HYPOKALEMIA (5) CAD (coronary artery disease) Status: Chronic Code(s): I25.10 - ATHSCL HEART DISEASE OF [place] CORONARY ARTERY W/O ANG PCTRS (6) Diabetes Status: Chronic Code(s): E11.9 - TYPE 2 DIABETES MELLITUS WITHOUT COMPLICATIONS Qualifiers: Diabetes mellitus type: type 2 Diabetes mellitus complication status: with kidney complications Diabetes mellitus complication detail: with chronic kidney disease Chronic kidney disease stage: stage 4 (severe) (7) HLD (hyperlipidemia) Status: Chronic Code(s): E78.5 - HYPERLIPIDEMIA, UNSPECIFIED (8) History of GA (myocardial infarction) Status: Chronic Code(s): I25.2 - OLD MYOCARDIAL INFARCTION (9) History of heart artery stent Status: Chronic Code(s): Z95.5 - PRESENCE OF CORONARY ANGIOPLASTY IMPLANT AND GRAFT (10) Hypertension Status: Chronic Code(s): I10 - ESSENTIAL (PRIMARY) HYPERTENSION (11) Sinus bradycardia Status: Chronic Code(s): R00.1 - BRADYCARDIA, UNSPECIFIED - Plan Syncope - Based on history, most likely 2/2 new medications, trazadone and ropinirole. However, given significant risk factors would not r/o possible PVD such as possible carotid stenosis. Na WNLs and K slightly low so also unlikely 2/2 electrolyte derangements. Will consider checking Mg and Phos levels as well. Patient did report slight bowel incontinence and shaking but seizure still less likely as patient reported an atypical prodromal phase and denied any postictal state. Prolactin was also WNLs. Brain CT also negative for any acute IC findings. - Hypoglycemia also ruled out as per patient BG was 200+ after syncopal episode. BG was also elevated on admission. - Will order carotid dopplers to r/o any significant stenosis that could be source of syncope. Indeterminate trop - Slightly elevated on admission but has been higher per chart review. Likely 2/ 2 ESRD as patient is asymptomatic. Will not trend. Hypokalemia - K 3.1 on admission. - Will give one time dose of 20mEq PO and continue to monitor & replace PRN. Mild leukocytosis - Patient had a WBC of 15.3 on admission but no left shift or any other signs of infection such as fever, tachycardia or a source. Per chart review has had elevated WBCs in the past w/ no infection at that time. - Will continue to monitor. ESRD on PD - Aware, Cr at baseline on admission. Will consider consulting nephrology if patient stays overnight. DM2 - Will cover w/ mild SSI overnight & resume home meds in the AM. - CC diet, ACHS Accuchecks, hypoglycemia protocol. Normocytic anemia - Likely related to patient's ESRD - Unlikely to be cause of syncope as hgb is 12.2. - Will continue to monitor w/ QD CBCs. HTN: - Aware, will start home meds. HLD: - Aware, will resume home meds. CAD s/p CABG & stents: - Aware, will resume home meds. HFrEF: - Aware, not in acute exacerbation. Will resume home meds and start on HH, fluid restricted diet. Tobacco use: - Aware, will encourage cessation. Nicotine patch. FMR H&P: Upper Level - Pertinent history 58M presents for syncope. He has history of diabetes, ESRD with peritoneal dialysis. Tonight, he was two hour into his PD dialysis. He was taking for first time, trazadone and ropirinole. Apparently had sensation of syncope 10 minutes afterward, then blacked out. It was witnessed by his girlfriend. She told him that he was out for 3 minute and may have had jerking of his extremities. He had bowel incontinence at that time. He regain conciousness without a postictal state. When transported by EMS, he had a near syncopal episode. There is no PMH of seizure. - Pertinent findings Gen: Alert, oriented, jovial HEENT: Normocephalic, vision and hearing grossly intact, midline trachea, moist mucosal membrane CV: RRR with no apparent m/g/r Resp: CTA bilaterally Abd: Soft, normoactive, PD port in Derm: No obvious acute lesion - Plan Date/Time: 04/21/18 0145 I, [Reece Ventura], have evaluated this patient and agree with findings/plan as outlined by internet marketing manager resident. Pertinent changes/additions are listed here. 1. Syncope - Possible medication side effect, trazadone and ropirenol can cause somnolence and dyskinesia and occurred after medication. Stop both med. - Doubt seizure as atypical prodromal phase, no postictal, patient endorse being tremulous at baseline, prolactin normal - Electrolyte are relatively within normal limit, glucose per patient was 200+ after seizure - Has extensive cardiac history. Cardiac echo done 3 month prior was relatively normal. Would get carotid echo. 2. Indeterminate trop - Repeat, mildly elevated, likely due to ESRD. At his baseline. . Hypokalemia - One time potassium replacement 3. ESRD on PD - Consult nephrology if patient remains overnight - Electrolyte in acceptable range at this time 4. DM2 - SSI, resume home medication, chronic stable issue 5. Mild leukocytosis - Patient has elevated WBC on previous visit where he did not have an infectious issue - At this point, will monitor, unclear source but no left shift and history of leukcytosis makes infection unlikely 6. Normocytic anemia - Likely related to patient's ESRD - Unlikely to be cause of syncope as hgb is 12.2 See internet marketing manager note for other chronic issues Addendum - Attending - Attending Attestation Date/Time: 04/21/18 1040 I personally evaluated the patient and discussed the management with Dr. Alejandro/ Audrey. I agree with the History, Examination, Assessment and Plan documented above with any addition or exceptions noted below. Patient here with feelings of altered mentation and syncope after a new medication that is known to cause similar effects. He currently feels well. Labs reassuring and telemetry has shown no issues. Stable for discharge with instructions to avoid those medications and discuss with PCP.
[2018-04-21 03:17] VITALS: BMI 28.3
[2018-04-21] MEDS ORDERED: Acetaminophen 325 MG TAB PO PRN (03:23)
[2018-04-21] MEDS ORDERED: Dextrose 5% in Water 1,000 ML IV PRN (03:23)
[2018-04-21] MEDS ORDERED: Ondansetron ODT 4 MG TAB PO PRN (03:23)
[2018-04-21] MEDS ORDERED: HumaLOG 300 UNITS/3 ML VIAL SC PRN ×2 (03:23)
[2018-04-21] MEDS ORDERED: Dextrose 50% Abboject 50 ML SYRINGE SLOW IVP PRN (03:23)
[2018-04-21] MEDS ORDERED: Nicotine 21 MG PATCH TD SCH (06:00)
[2018-04-21] MEDS ORDERED: Furosemide 40 MG TAB PO SCH (07:30)
[2018-04-21] MEDS ORDERED: Potassium Chloride 20 MEQ TAB PO SCH (08:00)
--- NOTE | 2018-04-21 08:12 | RAD ---
PORTABLE AP CHEST: Date: 04/20/18 HISTORY: Syncope. COMPARISON: 01/06/18. FINDINGS: Postsurgical changes related to CABG are again noted. Calcifications in the coronal arteries and thor acic aorta are seen. Previously seen tunneled right internal jugular vein hemodialysis catheter has b een removed. Stable circumscribed calcified nodule in the lateral aspect of right upper lung zone is again seen, with a few additional smaller calcified granulomata present. The lungs are otherwise shaggy r. There is improved depth of inspiration compared to the prior study, the chest is otherwise stable. IMPRESSION: 1. Stable chest without evidence of an acute cardiopulmonary process. 2. Stable prominent calcified nodule lateral right upper lung zone. POS: [facility]
[2018-04-21 08:47] VITALS: BP 146/70
[2018-04-21 08:48] VITALS: TEMP 98.1
[2018-04-21] MEDS ORDERED: Amlodipine 10 MG TAB PO SCH (09:00)
[2018-04-21] MEDS ORDERED: Aspirin Chewable 81 MG TAB PO SCH (09:00)
[2018-04-21] MEDS ORDERED: Sevelamer Carbonate 800 MG TAB PO SCH (09:00)
--- NOTE | 2018-04-21 09:41 | ULT ---
CAROTID DOPPLER: Date: 04/21/18 Ultrasound Doppler study is performed on the extracranial carotid arteries. INDICATION: Syncope. FINDINGS: There is echogenic plaque in both bulb regions. Increased velocities recorded in the external carotid arteries bilaterally. Internal carotid artery velocities are within normal range, without evidence of hemodynamically signi ficant stenosis. The left common carotid artery exhibits an increased velocity of 155 cm/second. This suggests hemodyn amically significant stenosis. The vertebral arteries show antegrade flow. IMPRESSION: 1. Moderate echogenic plaque in the bulb regions bilaterally. 2. Increased velocities in the left common carotid artery suggesting hemodynamically significant devante nosis. 3. No evidence of hemodynamically significant stenosis identified in the internal carotid arteries. Recommend further characterization with CT angio neck. POS: [facility]
--- NOTE | 2018-04-21 10:04 | CT ---
PRELIMINARY REPORT/[facility]/EMERGENTY AFTER-HOURS PROCEDURE CT Head Without Contrast EXAM DATE/TIME: 04/21/2018 12:51 AM CLINICAL HISTORY: 58 years old, male; Signs and symptoms; Other: Seizure; Patient HX: 58m presents via ems for the eval uation of syncope vs seizure. Patient reports he took new medication tonight for the first time. Had a witnessed syncopal episode tonight, lasting for approximately 3 minutes. Patient had bowel incontinence during this time. Per ems, patient felt light headed en route and had a near syncopal ep isode in the ambulance TECHNIQUE: Axial computed tomography images of the head/brain without contrast. COMPARISON: No relevant prior studies available. FINDINGS: Brain: No acute intracranial hemorrhage or mass effect. No definite acute infarct by CT. MRI could be more sensitive/specific for detection, as clinically di rected. Ventricles: Ventricle size is normal for age. Bones/joints: No definite acute skull fracture. Sinuses: Included paranasal sinuses are essentially clear. Mastoid air cells: No significant acute finding. Vasculature: Vascular calcifications noted in the internal carotid and vertebral basilar systems. IMPRESSION: 1. No acute intracranial bleed or mass effect. 2. No definite acute infarct by CT, see above. 3. Other findings discussed above. Thank you for allowing us to participate in the care of your patient. Dictated and Authenticated by: Chapincito Howell MD 04/21/2018 1:24 AM Central Time ([place] & [place]) FINAL REPORT HEAD CT NONCONTRAST: Date: 04/21/18 FINDINGS/IMPRESSION: I agree with the above provided preliminary interpretation from [facility]. POS: [facility]
--- NOTE | 2018-04-21 10:22 | CON ---
DATE OF CONSULTATION: 04/21/2018 CONSULTING PHYSICIAN: Dr. Alejandro. REASON FOR CONSULTATION: End-stage renal disease evaluation and care. REASON FOR ADMISSION: Syncope. HISTORY OF PRESENT ILLNESS: This is a 58-year-old male with history of end-stage renal disease, on peritoneal dialysis; type 2 diabetes; coronary artery disease, who came to the hospital with syncopal episode and is being admitted. He was recently started on trazodone and he got the first dose and blacked out and was taken to the hospital. He was okay doing at home. No fever or chills. No chest pain or palpitations. The patient wants to go home. PAST MEDICAL HISTORY: Positive for end-stage renal disease, heart failure, type 2 diabetes, hypertension, hyperlipidemia, coronary artery disease. PAST SURGICAL HISTORY: CABG, hernia repair, cholecystectomy, PD catheter placement, fistula placement. HOME MEDICATIONS: Reviewed and include; 1. Amlodipine. 2. Aspirin. 3. Atorvastatin. 4. Gabapentin. 5. Fish oil. 6. Furosemide. 7. Ropinirole. 8. Trazodone. ALLERGIES: NO KNOWN DRUG ALLERGIES. SOCIAL HISTORY: Former drinker and smoker. FAMILY HISTORY: Positive for heart disease. REVIEW OF SYSTEMS: REVIEW OF SYSTEMS CONSTITUTIONAL: Negative for weight loss or gain, ability to conduct usual activities. SKIN: Negative for rash, itching. EYES: Negative for double vision, pain. ENT/MOUTH: Negative for nose bleeding, neck stiffness, pain, tenderness. CARDIOVASCULAR: Negative for palpitations, dyspnea on exertion, orthopnea. RESPIRATORY: Negative for shortness of breath, wheezing, cough, hemoptysis, fever or night sweats. GASTROINTESTINAL: Negative for poor appetite, abdominal pain, heartburn, nausea, vomiting, constipation, or diarrhea. GENITOURINARY: Negative for urgency, frequency, dysuria, nocturia. MUSCULOSKELETAL: Negative for pain, swelling. NEUROLOGIC/PSYCHIATRIC: Negative for anxiety, depression. ALLERGY/IMMUNOLOGIC: Negative for skin rash, bleeding tendency. PHYSICAL EXAMINATION: GENERAL: This is a well-built male, in no apparent distress. VITAL SIGNS: Temperature 97.8, pulse 64, respiratory rate 18, blood pressure 106/65. HEENT: Atraumatic and normocephalic. Oral mucosa is moist. NECK: Supple. CVS: S1 and S2 heard. Rate and rhythm regular. RESPIRATORY: Clear. MUSCULOSKELETAL: DERMATOLOGIC: No skin rash. NEUROLOGIC: Alert and awake. PSYCHIATRIC: Normal mood and affect. LABORATORY DATA: Hemoglobin 12.2. Potassium is 3.1, BUN is 67, creatinine is 5.8. ASSESSMENT AND PLAN: 1. End-stage renal disease. We will continue on peritoneal dialysis as tolerated. 2. Edema. 3. Hypokalemia. 4. Anemia, mild. 5. Hypertension, stable. 6. Continue peritoneal dialysis. Job ID: [id number]
[2018-04-21] MEDS ORDERED: Atorvastatin Calcium 40 MG TAB PO SCH (21:00)
[2018-04-21] MEDS ORDERED: Gabapentin 300 MG CAP PO SCH (21:00)
--- NOTE | 2018-04-23 18:03 | DIS ---
DATE OF ADMISSION: 04/21/2018 DATE OF DISCHARGE: 04/21/2018 RESIDENT: Wendi Bagley MD. ADMITTING ATTENDING: Dr. Fer Petty. CONSULTS: Nephrology, Dr. Coronado on 04/21/2018. PROCEDURES: Brain CT 04/21/2018, impression; no acute intracranial bleed or mass effect. Chest x-ray, 04/21/2018, impression; stable chest without evidence of acute cardiopulmonary process. Stable prominent calcified nodule over lateral right upper lung zone. Carotid Doppler study, 04/21/2018, impression; increased velocities in the left common carotid artery suggesting hemodynamically significant stenosis. No evidence of hemodynamically significant stenosis identified in internal coronary arteries. Left common carotid artery exhibits an increased velocity of 155 cm/ sec. PRIMARY DIAGNOSIS: Syncope secondary to ropinirole use vs carotid stenosis. SECONDARY DIAGNOSES: 1. Elevated troponin secondary to demand ischemia. 2. Hypokalemia. 3. Mild leukocytosis. 4. End-stage renal disease, on PD. 5. Type 2 diabetes mellitus. 6. Normocytic anemia. 7. Hypertension. 8. Hyperlipidemia. 9. Coronary artery disease, status post coronary artery bypass graft and stents. 10. Heart failure with reduced ejection fraction. 11. Tobacco abuse. DISCHARGE MEDICATIONS: 1. [place]-3 fatty acids and fish oil one capsule oral b.i.d. 2. Aspirin 81 mg p.o. daily. 3. Amlodipine 5 mg p.o. every morning. 4. Gabapentin 300 mg p.o. at bedtime. 5. Simvastatin 40 mg p.o. at bedtime. 6. Glipizide 5 mg p.o. b.i.d. 7. Furosemide 40 mg p.o. daily before food. DISCONTINUED MEDICATIONS: 1. Ropinirole 0.5 mg p.o. daily. 2. Trazodone 50 mg p.o. daily. HISTORY OF PRESENT ILLNESS/HOSPITAL COURSE: A 58-year-old male with past medical history significant for ESRD, heart failure, and diabetes mellitus, who presented to the ED after having a syncopal episode at home. Per the patient, he had visited his PCP the day prior to presentation and was started on two new medications, trazodone and ropinirole, which he took for the first time this evening. The patient reported that after eating the new medications, he began to feel like he was "stoned." About 10 to [address] feeling [address] way, he had en episode of syncope while sitting on the couch at home. He endorses associated nausea before "blackout" as well. Per the patient , his girlfriend witnessed the episode, did endorse some shaking, but did not report any tongue biting, head trauma, or loss of control of the bladder. The patient reports losing some control of his bowels; however, the patient denies any postictal state or confusion and states he checked his blood glucose shortly after it was greater than 200. He denies any previous history of syncopal episodes and denies any associated palpitations, chest pain, shortness of breath, or vision changes. Syncope: Brain CT was negative for any acute intracranial finding. Prolactin was normal. Carotid Doppler was positive for increased velocity in the left common carotid artery suggesting hemodynamically significant stenosis. Most likely the patient's syncope was secondary to his new medications, ropinirole or trazodone. These medications were discontinued. However, it could also be due to left common carotid artery stenosis, which will need close follow up. Hypokalemia. Potassium was 3.1 on admission. Potassium was replaced with p.o. potassium. Mild leukocytosis. the patient's white count was 15.3 on admission with no left shift or any signs of infection, fever, tachycardia or source. Per chart review , he has had elevated white blood cell count in the past with no infections. End-stage renal disease, on PD. His creatinine was at baseline on admission. Nephrology was consulted. The patient was continued on peritoneal dialysis. Normocytic anemia, it was likely related to the patient's end-stage renal disease. It is unlikely to be cause of syncope as his hemoglobin was 12.2. Heart failure with reduced ejection fraction. The patient was not in acute exacerbation. The patient was restarted on home medications and started on a heart healthy, fluid restricted diet. DISPOSITION: Stable. DISCHARGE INSTRUCTIONS: 1. Location, home. 2. Diet, heart healthy. 3. Activity as tolerated. 4. Follow up with PCP within one week to review carotid Doppler study findings and consider further workup for possible endarterectomy. Discontinue trazodone and ropinirole. Job ID: [id number] [facility]asha
== END 2018-04-21 10:11 | disposition home or self-care (01) ==
LOC: ERS 23:58 → 2SW 04-21 03:07
PROVIDERS: ADMIT Emergency Medicine; ATTEND Emergency Medicine
DX: R55 Syncope and collapse (principal); I24.8 Other forms of acute ischemic heart disease; E87.6 Hypokalemia; D72.829 Elevated white blood cell count, unspecified; I13.2 Hypertensive heart and chronic kidney disease with heart failure and with stage 5 chronic kidney disease, or end stage renal disease; E11.22 Type 2 diabetes mellitus with diabetic chronic kidney disease; N18.6 End stage renal disease; I50.20 Unspecified systolic (congestive) heart failure; Z99.2 Dependence on renal dialysis; D63.1 Anemia in chronic kidney disease; I25.10 Atherosclerotic heart disease of native coronary artery without angina pectoris; I25.2 Old myocardial infarction; E78.5 Hyperlipidemia, unspecified; F17.210 Nicotine dependence, cigarettes, uncomplicated; D64.9 Anemia, unspecified; Z95.5 Presence of coronary angioplasty implant and graft; Z95.1 Presence of aortocoronary bypass graft; Z90.49 Acquired absence of other specified parts of digestive tract; Z79.82 Long term (current) use of aspirin; Z79.899 Other long term (current) drug therapy; Z79.84 Long term (current) use of oral hypoglycemic drugs; Z98.890 Other specified postprocedural states
CPT/HCPCS: 36415; 36416; 70450; 71045; 80053; 82553; 84146; 84484; 85025; 93005; 93880

== ENCOUNTER 2018-05-21 20:03 | Inpatient (IN) | payer MEDICARE ==
--- NOTE | 2018-05-21 21:22 | PDOC.FPRHP ---
- History of Present Illness Chief Complaint: Chest Pain History of Present Illness: Mr Grande is a 58yo male with a pmh significant for ESRD on PD, HFpEF, DMII, and CAD s/p stents x10 & CABG x5 vessels who was transferred from [facility] for chest pain and elevated Trop. Pt reports onset of chest pain at 1500, "felt like elephant sitting on my chest," associated with dyspnea and radiated to left arm. Was smoking a cigarette at the time, not exerting himself. Denied diaphoresis. Typically chest pain free with exertion, last time he had chest pain was 1 yr ago. At that time he took ASA and had resolution of his pain with lying down and resting. He later choked on a grape and felt his vision go dark and felt dizzy prior to syncopal event. He woke up on the ground with blood pooled beside him. He did hit his head and received 2 ifeanyi to the back of his head. Reports he often chokes on food and "fights off" passing out. While at [facility] ED pt had return of CP. Pt received Nitro and Tylenol which did no relieve pain. He reports pain resolved after Morphine. Currently experience chest pain that started just a few minutes ago. Feels the same as the last 2 episodes, radiates to left arm and to his back. 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 Reports no taking medications for past 3-4 days due to financial reasons. He last had a cath 4 years ago in [place]. Pt has ESRD on peritoneal dialysis. Last missed dialysis 3 weeks ago. Last dialysis today 3am to noon. PCP: [facility] ED Course: Tylenol 1g, Tdap, Morphine 4mg, KBl 40meq, Nitro 0.4mg x2 - Allergies/Adverse Reactions Allergies Allergy/AdvReac Type Severity Reaction Status Date / Time No Known Allergies Allergy Verified 04/21/18 03:35 - Home Medications Medication Instructions Recorded Confirmed Type Amlodipine [Norvasc] 5 mg PO QAM 12/30/17 05/22/18 History Aspirin Chewable [Aspirin Chewable 81 mg PO DAILY 12/30/17 05/22/18 History Tablet] Atorvastatin Calcium 40 mg PO HS 12/30/17 05/22/18 History Gabapentin 300 mg PO HS 12/30/17 05/22/18 History [place]-3 Fatty Acids/Fish Oil 1 cap PO BID 12/30/17 05/22/18 History [[place] 3 1,000 mg Softgel] glipiZIDE [glipiZIDE ER] 5 mg PO BID 12/30/17 05/22/18 History Furosemide [Lasix] 40 mg PO DAILY-AC #30 tab 01/09/18 05/22/18 Rx traZODone HCl [Trazodone HCl] 50 mg PO HS 04/21/18 05/22/18 History Insulin Glargine [Lantus] 5 units SC ASDIR 05/22/18 05/22/18 History Insulin Glargine [Lantus] 10 units SC ASDIR 05/22/18 05/22/18 History - History PMHx: HFpEF, DMII, HTN, HLD, ESRD on PD, CAD s/p CABG x5 vessels & stent x10 placement, h/o UT x2, Hep C s/p Harvoni PSHx: 5V CABG, stent placement x10, hernia repair, cholecystectomy, cataract surgery, L arm fistula placement FHx: Mother- UT & CVA Father- CAD Sister- CVAs Social: Former IV drug user and hx of alcohol abuse. Not currently using. Smoked 2ppd for 49 years. Lives alone in [place]. - Review of Systems General: reports: fatigue. denies: fever/chills Eyes: denies: eye pain, vision changes ENT: denies: nasal congestion, rhinorrhea Respiratory: reports: shortness of breath. denies: cough, congestion Cardiovascular: reports: chest pain. denies: palpitation, edema Gastrointestinal: reports: constipation. denies: nausea, vomiting, diarrhea, abdominal pain Genitourinary: denies: dysuria, other (hematuria) Skin: denies: rashes, lesions Musculoskeletal: reports: pain ("tailbone"). denies: swelling Neurological: reports: syncope, weakness (generalized) - Vital signs BP: 139/78 HR: 62 RR: 18 Tmax: 99.0 Pox: 96% on RA Wt: 87kg - Physical Exam Constitutional: NAD, awake, alert and oriented, well developed HEENT: normocephalic and atraumatic, PERRLA, grossly normal hearing, MMM, oropharynx clear, other (pt wears dentures) Neck: supple, trachea midline, no bruits Heart: RRR, no murmurs/rubs/gallops, pulses present, no edema Lungs: CTAB, no respiratory distress, good air movement Abdomen: soft, non-tender, bowel sounds present -Abdomen: peritoneal dialysis catheter present Musculoskeletal: normal structure, normal tone, ROM grossly normal Neurological: no focal deficit -Neurological: resting tremor noted when pts arm resting in flexed position. No Asterixis Skin: no rash/lesions, good turgor Heme/Lymphatic: no petechia Psychiatric: normal mood and affect, good judgment and insight, intact recent and remote memory FMR H&P: Results - EKG Interpretation EKG: NSR, no evidence of acute ischemia - Radiology Interpretation CT scan - head Status: report reviewed by me Additional comment: No acute findings Chest x-ray Status: report reviewed by me Additional comment: No acute cardiopulm disease FMR H&P: A/P - Problem List (1) typical chest pain Current Visit: Yes Status: Acute (2) ESRD on peritoneal dialysis Current Visit: No Status: Acute Code(s): N18.6 - END STAGE RENAL DISEASE; Z99.2 - DEPENDENCE ON RENAL DIALYSIS (3) CAD (coronary artery disease) Current Visit: No Status: Chronic Code(s): I25.10 - ATHSCL HEART DISEASE OF [place] CORONARY ARTERY W/O ANG PCTRS (4) COPD (chronic obstructive pulmonary disease) Current Visit: No Status: Chronic (5) Depression Current Visit: No Status: Chronic Code(s): F32.9 - MAJOR DEPRESSIVE DISORDER , SINGLE EPISODE, UNSPECIFIED (6) Diabetes Current Visit: No Status: Chronic Code(s): E11.9 - TYPE 2 DIABETES MELLITUS WITHOUT COMPLICATIONS Qualifiers: Diabetes mellitus type: type 2 Diabetes mellitus complication status: with kidney complications Diabetes mellitus complication detail: with chronic kidney disease Chronic kidney disease stage: stage 4 (severe) (7) HLD (hyperlipidemia) Current Visit: No Status: Chronic Code(s): E78.5 - HYPERLIPIDEMIA, UNSPECIFIED (8) History of UT (myocardial infarction) Current Visit: No Status: Chronic Code(s): I25.2 - OLD MYOCARDIAL INFARCTION (9) History of coronary artery bypass graft x 3 Current Visit: No Status: Chronic Code(s): Z95.1 - PRESENCE OF AORTOCORONARY BYPASS GRAFT (10) History of heart artery stent Current Visit: No Status: Chronic Code(s): Z95.5 - PRESENCE OF CORONARY ANGIOPLASTY IMPLANT AND GRAFT (11) Hypertension Current Visit: No Status: Chronic Code(s): I10 - ESSENTIAL (PRIMARY) HYPERTENSION - Plan Mr Grande is a 58yo male with a pmh significant for ESRD on PD, HFpEF, DMII, and CAD s/p stents x10 & CABG x5 vessels who was transferred from [facility] for chest pain and elevated Trop. Typical Chest Pain - Suspect exacerbation caused by medication noncompliance - Initial Trop 0.117-> 0.127 - EKG: NSR, no evidence of acute ischemia - Continue to trend troponins and CKMBs - EKG with each troponin - Nitro PRN - Morphine 2mg PRN - HH diet with NPO after midnight - Admit to tele Syncope - Likely 2/2 to vasovagal after choking on grape - Pt with recent hospitalization for syncope in Mar 2018. At this time attributed to ropinorole & trazodone. Pt no longer taking these meds. - CT head: no acute abnormalities - Monitor on tele - Pt received 2 ifeanyi at OSH Hypokalemia - K 3.1 - 40meq PO KCl ESRD on PD - Cr at baseline - Nephrology consulted, plan for dialysis in AM DM2 - Continue home Lantus 10U prior to dialysis, 5U after - Mild SSI, hypoglycemic protocol - CC diet, ACHS Accuchecks. NPO at midnight for possible cath Normocytic anemia - Likely related to patient's ESRD - Hgb 11.9, appears to be at baseline - Continue to monitor with AM CBC Elevated BNP - 203.6 - Does not appear fluid overloaded likely 2/2 ESRD HTN - Continue home meds HLD - Continue home meds CAD s/p CABG & stents - Continue home meds - Manage as above HFrEF - Echo 12/30/18: EF 50-55% dystolic dysfunction - Not in acute exacerbation - Continue home home meds - HH diet with fluid restriction - Strict I&O, daily wts Tobacco use - Encourage cessation - Nicotine patch PRN Code Status: FULL DVT ppx: Heparin PCP: Dr Adames FMR H&P: Upper Level - Pertinent history 58 y/o M PMHx of ESRD on peritoneal dialysis and significant cardiac hx of stent x10 and hx of 5vz CABG presents as a transfer from [facility] ED for syncopal episode earlier this afternoon after choking episode on a grape. Notes w/ associated CP and SOB prior to LOC at approx. 1500. Reportedly took ASA and nitro prior to laying down which improved his chest pain. Notes in the ER he began to have CP again which continued despite administration of Tylenol, morphine, nitro x2. CT Brain WO from outside ED NAD and CXR obtained NAD as well. Notes on PD at home w/ last session from 0300 1200 prior to sxs onset. - Pertinent findings EKG No evidence of acute ischemia. NSR. CXR NAD CT-Brain W/O NAD WBC 12.0 Hgb 11.9 Neut- 70.8 Na 137 Cl 100 CO2 21 BUN 52 Cr 5.65 Gluc - 350 BNP 203.6 Trop 0.117 PE: GEN: NAD HEENT: Laceration post. Head w/ ifeanyi in place. PERLLA, EOMI CARDS: RRR, no murmur, rubs, no gallops PULM: CTA-B/l, no wheezes, rales, or rhonci. Good overall air movement. GI: Soft, no rigidity, no rebound EXT: No over LE edema - Plan Date/Time: 05/21/182119 INadege. Luis Eduardo Vora MD, have evaluated this patient and agree with findings/plan as outlined by internal audit consultant resident. Pertinent changes/additions are listed here. 58 y/o M w/: 1. Typical Chest Pain likely exacerbated by medication non-compliance - Pt w/ chest pain associated w/ SOB admits not taking his medication and missing his dialysis periodically - Indeterminate troponin and no acute STEMI noted on EKG. Cardiology consulted from ER and advised to continue trending trops and monitor on telemetry 2. Indeterminate Troponin - Possibly 2/2 demand. Will continue to trend. No acute EKG changes concerning for acute ischemia at this time and appears to be at baseline compared to 04/18 EKG. - Dr. Ortiz of cardiology consulted from ER with recs for enzyme trending and to be contacted w/ any acute changes - Cont. to trend trops and CK-MB with repeat EKGs per cardiology recs 3. Likely Vasovagal Syncope - Pt w/ recent hospitalization for syncope episode 03/2018 which was felt to be secondary to him being started on new medications w/ ropinorole and trazadone which were discontinued. During this hospitalization he was also found to have significant stenosis of the L-ICA. - CT Brain from outside ER negative for mass, ICH - Pt w/o neurological deficits making stroke unlikely as etiology - Cannot r/o arrhythmia given pts significant cardiac hx, will cont. to monitor on telemetry - However, likely 2/2 vasovagal reaction given pt w/ choking episode prior to onset and noted vision started getting black before he had LOC 4. Other Chronic medical problems per internal audit consultant note Addendum - Attending - Attending Attestation Date/Time: 05/21/18 [id number] I personally evaluated the patient and discussed the management with Dr. Zepeda /Vielka. I agree with the History, Examination, Assessment and Plan documented above with any addition or exceptions noted below. Patient with history of CAD s/p CABG, ESRD on PD, HTN, tobacco abuse here with chest pain and syncope. Patient reports that he has had newer onset of substernal chest pain with radiation to L arm that began today. Reports not taking his medication appropriately. He also reports missing occasional PD sessions. Says chest pain was relieved with Morphine in ER. His troponins are indeterminate but chronicly so due to ESRD status. Cardiology consulted from the ED with recommendations to monitor overnight. Will trend troponins and anticoagulate if necessary or if pain returns and/or EKG changes. Otherwise, monitor and await further cardiology recs tomorrow.
[2018-05-21] MEDS ORDERED: Acetaminophen 325 MG TAB PO PRN (23:22)
[2018-05-21] MEDS ORDERED: Ondansetron ODT 4 MG TAB SL PRN (23:22)
[2018-05-21] MEDS ORDERED: Ondansetron PF 4 MG/2 ML Vial IVP PRN (23:22)
[2018-05-21] MEDS ORDERED: Nitroglycerin 0.4 MG TAB (25 Tab Bottle) PO PRN (23:30)
[2018-05-21] MEDS ORDERED: Insulin Glargine 5 UNITS in Pre-Filled Syringe 1 EACH SC SCH (23:30)
[2018-05-21] MEDS ORDERED: Insulin Glargine 10 UNITS in Pre-Filled Syringe 1 EACH SC SCH (23:30)
[2018-05-21] MEDS ORDERED: Dextrose 50% Abboject 50 ML SYRINGE SLOW IVP PRN (23:30)
[2018-05-21] MEDS ORDERED: Dextrose 5% in Water 1,000 ML IV PRN (23:30)
[2018-05-21 23:46] LABS: Troponin I 0.137 ng/mL (< 0.028)
[2018-05-21] MEDS: Morphine 4 MG/ML VIAL SLOW IVP PRN (23:47)
[2018-05-21] MEDS: Sodium Chloride 0.9% 1,000 ML IV SCH (23:53)
[2018-05-21] MEDS ORDERED: Potassium Chloride 20 MEQ TAB PO SCH (23:59)
[2018-05-22 00:08] VITALS: BMI 27.7
[2018-05-22 00:10] LABS: CKMB 5.5 ng/mL (0-6.6)
[2018-05-22 02:39] LABS: #Basophils 0.1 thou/uL (0.0-0.2); #Eosinphils 0.5 thou/uL (0.0-0.7); #Lymphocytes 2.8 thou/uL (1.20-3.40); #Monocytes 0.6 thou/uL (0.11-0.59); #Neutrophils 8.2 thou/uL (1.40-6.50); %Basophils 0.8 % (0.0-1.0); %Eosinophils 4.1 % (0.0-10.0); %Lymphocytes 22.9 % (21.0-51.0); %Monocytes 4.9 % (0.0-10.0); %Neutrophils 67.4 % (42.0-75.0); Mean Corpuscular HGB CONC 33.2 g/dL (32.0-36.0); Mean Corpuscular Hemoglobin 33.3 pg (27.0-31.0); Mean Platelet Volume 7.3 fL (7.4-10.4); Platelet Count 212 thou/uL (130-400); RBC Distribution Width 12.3 % (11.5-14.5); Red Blood Cell (RBC) Count 3.29 mill/uL (4.70-6.10); White Blood Cell (WBC) Count 12.2 thou/uL (4.8-10.8)
[2018-05-22 03:07] LABS: CKMB 10.4 ng/mL (0-6.6); Troponin I 0.349 ng/mL (< 0.028)
[2018-05-22 03:11] LABS: Anion Gap 14 mmol/L (10-20); BUN (Urea Nitrogen) 52 mg/dL (8.4-25.7); Calc. Creatinine Clearance 19 mL/min (70-130); Calcium 8.3 mg/dL (7.8-10.44); Carbon Dioxide 29 mmol/L (22-29); Cardiac Risk 4.1 (Less than 4.5); Chloride 101 mmol/L (98-107); Cholesterol 128 mg/dl (< 200 Desired); Estimated GFR-MDRD 11; Glucose 127 mg/dL (70-105); HDL Cholesterol 31 mg/dL (>60 Neg Risk); LDL Cholesterol, Calculated 68 mg/dL; Potassium 3.2 mmol/L (3.5-5.1); Sodium 141 mmol/L (136-145); Triglycerides 143 mg/dL (Less than 150)
[2018-05-22] MEDS ORDERED: Heparin 25,000 units/D5W 500 ML IVPB SCH (04:15)
[2018-05-22] MEDS ORDERED: Heparin 10,000 UNITS/ 10 ML VIAL SLOW IVP SCH (04:15)
[2018-05-22 04:51] LABS: INR-International Normal Ratio 1.1
[2018-05-22 04:52] LABS: PTT 36.9 SEC (22.9-36.1)
--- NOTE | 2018-05-22 05:35 | PDOC.FM ---
- Subjective Subjective: Pt states that he is still having some pain but is improved from yesterday. He denies SOB, nausea, vomiting, diaphoresis, or abdominal pain. - Objective MAR Reviewed: Yes Vital Signs & Weight: Vital Signs (12 hours) Temp Pulse Resp BP Pulse Ox 05/22/18 04:00 98.2 F 05/21/18 23:30 99 05/21/18 23:15 98.0 F 60 18 138/73 99 Weight Weight 87.657 kg Most Recent Monitor Data Heart Rate from ECG 43 NIBP 90/52 NIBP BP-Mean 64 Respiration from ECG 17 SpO2 96 Result Diagrams: 05/22/18 06:25 05/22/18 02:30 Phys Exam - Physical Examination Constitutional: NAD (resting in bed) HEENT: moist MMs Laceration on back of head with 2 ifeanyi present Neck: no JVD, full ROM Respiratory: no wheezing, clear to auscultation bilateral Cardiovascular: no significant murmur bradycardic Gastrointestinal: soft, no distention, positive bowel sounds Mild umbilical tenderness likely 2/2 to PD tube Musculoskeletal: no edema, pulses present Neurological: normal sensation, moves all 4 limbs Psychiatric: normal affect, A&O x 3 Skin: cap refill <2 seconds Deviation from normal: Multiple tattoos Dx/Plan (1) Tobacco abuse Code(s): Z72.0 - TOBACCO USE Status: Acute (2) typical chest pain Status: Acute (3) ESRD on peritoneal dialysis Code(s): N18.6 - END STAGE RENAL DISEASE; Z99.2 - DEPENDENCE ON RENAL DIALYSIS Status: Acute (4) Hypokalemia Code(s): E87.6 - HYPOKALEMIA Status: Acute (5) Normocytic anemia Code(s): D64.9 - ANEMIA, UNSPECIFIED Status: Acute (6) Syncope Code(s): R55 - SYNCOPE AND COLLAPSE Status: Acute (7) CAD (coronary artery disease) Code(s): I25.10 - ATHSCL HEART DISEASE OF [place] CORONARY ARTERY W/O ANG PCTRS Status: Chronic (8) COPD (chronic obstructive pulmonary disease) Status: Chronic (9) Depression Code(s): F32.9 - MAJOR DEPRESSIVE DISORDER, SINGLE EPISODE, UNSPECIFIED Status : Chronic (10) Diabetes Code(s): E11.9 - TYPE 2 DIABETES MELLITUS WITHOUT COMPLICATIONS Status: Chronic Qualifiers: Diabetes mellitus type: type 2 Diabetes mellitus complication status: with kidney complications Diabetes mellitus complication detail: with chronic kidney disease Chronic kidney disease stage: stage 4 (severe) (11) History of coronary artery bypass graft x 3 Code(s): Z95.1 - PRESENCE OF AORTOCORONARY BYPASS GRAFT Status: Chronic (12) Hypertension Code(s): I10 - ESSENTIAL (PRIMARY) HYPERTENSION Status: Chronic - Plan Plan: This is a 58 yo male with a PMH of CAD s/p CABG, COPD, DM2, ESRD on PD, HTN, HLD , HFrEF Typical chest pain likely 2/2 NSTEMI 2/2 ischemia -EKG shows NSR -Troponin 0.117->0.127->.0349->1.34 -Heart score of 6 -Nitro and Morphine PRN for pain -NPO -Dr. Christianson consulted, appreciate recommendations -Heparin drip Syncope -Vasovagal -No Head CT changes -Cardiac monitoring on tele -Pt received 2 ifeanyi in scalp from OSH, Hypokalemia -3.2 this AM -Will slowly replace as pt is ESRD ESRD -Cr at baseline -Dr. Buck consulted, dialysis this AM DM2 -Continue home Lantus 10U prior to dialysis, 5U after -Mild SSI, ACHS accuchecks -NPO Normocytic anemia -Likely 2/2 ESRD -Hgb 11.0 Elevated BNP -203.6 HTN -Continue home meds HLD -Continue home meds CAD s/p CABG and Stents -Continue home medications HFrEF -Echo 12/30/18 shows EF of 50-55% with diastolic dysfunction Tobacco abuse -Encourage Cessation Addendum - Attending - Attending Attestation Date/Time: 05/22/18 1400 I personally evaluated the patient and discussed the management with Dr. Lara I agree with the History, Examination, Assessment and Plan documented above with any addition or exceptions noted below. Patient without Chest pain at this time resting comfortably. Note sinus bradycardia admonished patient quit smoking. Patient with NSTEMI for Heart cath later today.
[2018-05-22] MEDS: Morphine 4 MG/ML VIAL SLOW IVP PRN ×5 (05:54→21:55)
[2018-05-22] MEDS: Sodium Chloride 0.9% 1,000 ML IV SCH (06:38)
[2018-05-22 06:46] LABS: Hemoglobin 11.2 g/dL (14.0-18.0); Platelet Count 225 thou/uL (130-400)
[2018-05-22 07:18] LABS: CKMB 22.3 ng/mL (0-6.6); Troponin I 1.346 ng/mL (< 0.028)
[2018-05-22] MEDS ORDERED: Heparin 5,000 UNITS/ML VIAL SC SCH (09:00)
[2018-05-22] MEDS: Fish Oil 1,000 MG CAP PO SCH ×2 (09:08→20:23)
[2018-05-22] MEDS: Aspirin Chewable 81 MG TAB PO SCH (09:08)
[2018-05-22] MEDS: Furosemide 40 MG TAB PO SCH (09:09)
[2018-05-22] MEDS: Amlodipine 10 MG TAB PO SCH (09:09)
[2018-05-22] MEDS ORDERED: Iopamidol 370 76% 100 ML VIAL ONE (09:24)
[2018-05-22] MEDS ORDERED: Communication Order-Pharmacy FS SCH (10:30)
--- NOTE | 2018-05-22 12:45 | CON ---
DATE OF CONSULTATION: 05/22/2018 REASON FOR CONSULTATION: Type 1 ID. HISTORY OF PRESENT ILLNESS: Mr. Grande is a 58-year-old gentleman with previous history of CAD status post bypass surgery and multiple stents placed, who recently presented with chest pain. He had a syncopal episode that occurred shortly prior. This occurred while swallowing a grape. He states this had occurred in the past. He did undergo coronary angiography in 2017 in [place]. At that time, he was found to have 30% stenosis of the left main with 100% occlusion of the LAD and circumflex artery. The right coronary artery had in-stent restenosis, measured 50% in the mid region followed by 80% stenosis in the distal region. Medical therapy recommended. He did have a vein graft to the second OM branch that was patent and a WEAVER to the ramus that was patent. Two other vein grafts were occluded. Again, medical therapy recommended. PAST MEDICAL HISTORY: Severe CAD, status post bypass surgery with 2 of 4 grafts patent. End-stage renal disease, diabetes mellitus, PVD, and tobacco use. ALLERGIES: ADHESIVE TAPE. REVIEW OF SYSTEMS: Ten-point review of systems is reviewed and as above, otherwise negative. PHYSICAL EXAMINATION: VITAL SIGNS: Blood pressure 113/52, pulse 95, temperature afebrile. GENERAL: He does appear older than stated age. NEUROLOGIC: The patient is alert and oriented x3 with no focal neurologic deficits. HEENT: Sclerae without icterus. Mouth has moist mucous membranes with normal pallor. NECK: No JVD. Carotid upstroke brisk. No bruits bilaterally. LUNGS: Clear to auscultation with unlabored respirations. BACK: No scoliosis or kyphosis. CARDIAC: Regular rate and rhythm with normal S1 and S2. No S3 or S4 noted. No significant rubs, murmurs, thrills, or gallops noted throughout the precordium. PMI is not displaced. There is no parasternal heave. ABDOMEN: Soft, nontender, nondistended. No peritoneal signs present. No hepatosplenomegaly. No abnormal striae. EXTREMITIES: 2+ femoral and 2+ dorsalis pedis pulses. No cyanosis, clubbing, or edema. SKIN: No gross abnormalities. LABORATORY DATA: Hemoglobin 11.2, creatinine 5.32, potassium 3.2, troponin 1.3 with CK-MB of 22. IMPRESSION: 1. Unstable angina, type 1 myocardial infarction. 2. Syncope. 3. End-stage renal disease. 4. Coronary artery disease. 5. Status post bypass surgery. Mr. Grande is currently chest pain free. He states he stopped all his medications for 3 days prior to the event. At this point, I recommend coronary angiography, possible PCI. I discussed the procedure in full detail with Mr. Grande. The risks of the procedure were also discussed. The risks of the procedure include but are not limited to the following: , stroke, ID, need for emergency surgery, loss of limb, bleeding, and infection, as well as a reaction to the dye causing kidney failure and needing long-term dialysis. I also discussed the risks of PCI to include all of the above including coronary dissection and perforation in addition to acute stent thrombosis and restenosis. All questions about the procedure were answered. Given the above, the patient agreed to proceed with coronary angiography and possible PCI. I also discussed drug coated and non drug coated stent placement. There were no contraindications to proceed if needed. Further recommendation will be pending the above. Job ID: [id number]
--- NOTE | 2018-05-22 14:33 | CON ---
DATE OF CONSULTATION: REASON FOR CONSULTATION: End-stage renal disease on maintenance peritoneal dialysis. HISTORY OF PRESENT ILLNESS: This is a very pleasant 58-year-old gentleman, who presented to the hospital after a syncopal episode. The patient denies any nausea, vomiting, or chest pain. PAST MEDICAL HISTORY: Significant for end-stage renal disease, hypertension, diabetes mellitus, coronary artery disease, stents, CABG, history of PD catheter placement, history of tunneled dialysis catheter placement, history of anemia, history of secondary hyperparathyroidism, history of cholecystectomy, and history of fistula placement. SOCIAL HISTORY: No alcohol or drug use. FAMILY HISTORY: Negative for ESRD. ALLERGIES: REVIEWED. HOME MEDICATION: List reviewed. REVIEW OF SYSTEMS: A 15-point review of system was performed, negative except for what was noted above. GENERAL: HEAD: NECK: No swelling or lumps. NOSE: No epistaxis or discharge. EYES: No diplopia or pain. RESPIRATORY: CARDIOVASCULAR: GASTROINTESTINAL: /RECRUITER COORDINATOR: MUSCULOSKELETAL: No joint pain. NEUROPSYCHIATIC SYSTEMS: No suicidal ideation. No ideation. SKIN: Denies any rash or ulcer. CONSTITUTIONAL: No fever or chills. PHYSICAL EXAMINATION: CONSTITUTIONAL: The patient is awake and alert. VITAL SIGNS: Afebrile, pulse 88, breathing 16, and blood pressure 113/52. GENERAL APPEARANCE AND MENTAL STATUS: Fair. HEAD/NECK: Normocephalic. Atraumatic. EYES: EOMI. No deformity. EARS: Clear. No ulcers. NOSE: Intact. No lesions. MOUTH: Clear. No discharge. THROAT: Clear. No exudate. LUNGS: Clear. No crackles. CARDIAC: S1, S2. No rub. ABDOMEN: Benign. Bowel sounds positive. GENITALIA/RECTUM: Zavala absent. BACK/EXTREMITIES: Edema 0+. NEUROLOGICAL: Alert and motor intact. SKIN: LYMPHATICS: LABORATORY DATA: Labs reviewed. IMPRESSION AND PLAN: Stage 2 chronic kidney disease requiring PD, hypertensive, and anemia stable. Medication based on GFR appropriate. Job ID: [id number]
[2018-05-22] MEDS: Atorvastatin Calcium 40 MG TAB PO SCH (20:23)
[2018-05-22] MEDS: Gabapentin 300 MG CAP PO SCH (20:23)
[2018-05-23] MEDS: HumaLOG 300 UNITS/3 ML VIAL SC PRN ×2 (05:24→19:16)
--- NOTE | 2018-05-23 05:40 | PDOC.FM ---
- Subjective Subjective: Pt reports he is doing well this morning. He denies chest pain, SOB, nausea, or vomiting. He is currently undergoing PD. He is asking when he can go home. - Objective MAR Reviewed: Yes Vital Signs & Weight: Vital Signs (12 hours) Temp Pulse Ox 05/23/18 04:00 98.5 F 05/23/18 03:47 92 L 05/23/18 00:00 98.6 F 05/22/18 20:00 98.6 F 100 Weight Weight 87.657 kg Most Recent Monitor Data Heart Rate from ECG 58 NIBP 122/70 NIBP BP-Mean 87 Respiration from ECG 15 SpO2 92 I&O: 05/21/18 05/22/18 05/23/18 06:59 06:59 06:59 Intake Total 494 910 Output Total 775 Balance 494 135 Result Diagrams: 05/23/18 05:20 05/23/18 05:20 Phys Exam - Physical Examination Constitutional: NAD HEENT: moist MMs Neck: no JVD, full ROM Respiratory: no wheezing, no rales, no rhonchi, clear to auscultation bilateral Cardiovascular: RRR, no significant murmur Gastrointestinal: soft, positive bowel sounds Currently undergoing peritoneal dialysis Musculoskeletal: pulses present, edema present (mild non-pitting edema) Neurological: normal sensation, moves all 4 limbs Psychiatric: normal affect, A&O x 3 Skin: cap refill <2 seconds Dx/Plan (1) Tobacco abuse Code(s): Z72.0 - TOBACCO USE Status: Acute (2) typical chest pain Status: Acute (3) ESRD on peritoneal dialysis Code(s): N18.6 - END STAGE RENAL DISEASE; Z99.2 - DEPENDENCE ON RENAL DIALYSIS Status: Acute (4) Hypokalemia Code(s): E87.6 - HYPOKALEMIA Status: Acute (5) Normocytic anemia Code(s): D64.9 - ANEMIA, UNSPECIFIED Status: Acute (6) Syncope Code(s): R55 - SYNCOPE AND COLLAPSE Status: Acute (7) CAD (coronary artery disease) Code(s): I25.10 - ATHSCL HEART DISEASE OF [place] CORONARY ARTERY W/O ANG PCTRS Status: Chronic (8) COPD (chronic obstructive pulmonary disease) Status: Chronic (9) Depression Code(s): F32.9 - MAJOR DEPRESSIVE DISORDER, SINGLE EPISODE, UNSPECIFIED Status : Chronic (10) Diabetes Code(s): E11.9 - TYPE 2 DIABETES MELLITUS WITHOUT COMPLICATIONS Status: Chronic Qualifiers: Diabetes mellitus type: type 2 Diabetes mellitus complication status: with kidney complications Diabetes mellitus complication detail: with chronic kidney disease Chronic kidney disease stage: stage 4 (severe) (11) History of coronary artery bypass graft x 3 Code(s): Z95.1 - PRESENCE OF AORTOCORONARY BYPASS GRAFT Status: Chronic (12) Hypertension Code(s): I10 - ESSENTIAL (PRIMARY) HYPERTENSION Status: Chronic - Plan Plan: This is a 58 yo male with a PMH of CAD s/p CABG, COPD, DM2, ESRD on PD, HTN, HLD , HFrEF Typical chest pain likely 2/2 NSTEMI 2/2 ischemia -EKG shows NSR -Troponin 0.117->0.127->.0349->1.34 -Heart score of 6 -Nitro and Morphine PRN for pain -renal Diet -Pt taken for cath yesterday with 1 stent placement in RCA -Dr. Christianson consulted, we will appreciate their recommendations Syncope -Vasovagal -No Head CT changes -Cardiac monitoring on tele -Pt received 2 ifeanyi in scalp from OSH, will need removed 05/28 Hypokalemia -3.2 yesterday, pending AM labs -Will slowly replace as pt is ESRD ESRD -Cr at baseline -Dr. Buck consulted, will appreciate recommendations DM2 -Continue home Lantus 10U prior to dialysis, 5U after -Mild SSI, ACHS accuchecks -NPO Normocytic anemia -Likely 2/2 ESRD -Hgb 11.0 Elevated BNP -203.6 HTN -Continue home meds HLD -Continue home meds CAD s/p CABG and Stents -Continue home medications HFrEF -Echo 12/30/18 shows EF of 50-55% with diastolic dysfunction Tobacco abuse -Encourage Cessation Addendum - Attending - Attending Attestation Date/Time: 05/23/18 1601 I personally evaluated the patient and discussed the management with Dr. Lara I agree with the History, Examination, Assessment and Plan documented above with any addition or exceptions noted below. Patient s/p Heart Cath with stent placement. BB not rx note of history Bradycardia . Patient denies chest pain continue observation. Continue peritoneal Dialysis daily.
[2018-05-23 06:15] LABS: #Basophils 0.1 thou/uL (0.0-0.2); #Eosinphils 0.5 thou/uL (0.0-0.7); #Lymphocytes 1.3 thou/uL (1.20-3.40); #Monocytes 0.6 thou/uL (0.11-0.59); #Neutrophils 9.7 thou/uL (1.40-6.50); %Basophils 0.5 % (0.0-1.0); %Eosinophils 4.5 % (0.0-10.0); %Lymphocytes 10.8 % (21.0-51.0); %Monocytes 4.6 % (0.0-10.0); %Neutrophils 79.7 % (42.0-75.0); Hemoglobin 12.4 g/dL (14.0-18.0); Mean Corpuscular HGB CONC 34.1 g/dL (32.0-36.0); Mean Corpuscular Hemoglobin 34.4 pg (27.0-31.0); Mean Platelet Volume 8.1 fL (7.4-10.4); Platelet Count 265 thou/uL (130-400); RBC Distribution Width 12.4 % (11.5-14.5); Red Blood Cell (RBC) Count 3.62 mill/uL (4.70-6.10); White Blood Cell (WBC) Count 12.2 thou/uL (4.8-10.8)
[2018-05-23 06:42] LABS: ALT (SGPT) 104 U/L (8-55); AST (SGOT) 91 U/L (5-34); Albumin 3.2 g/dL (3.5-5.0); Alkaline Phosphatase 167 U/L (40-150); Anion Gap 14 mmol/L (10-20); BUN (Urea Nitrogen) 54 mg/dL (8.4-25.7); Bilirubin, Total 0.4 mg/dL (0.2-1.2); Calc. Creatinine Clearance 19 mL/min (70-130); Calcium 8.5 mg/dL (7.8-10.44); Carbon Dioxide 25 mmol/L (22-29); Chloride 98 mmol/L (98-107); Estimated GFR-MDRD 12; Globulin 3.1 g/dL (2.4-3.5); Glucose 427 mg/dL (70-105); Potassium 3.8 mmol/L (3.5-5.1); Protein, Total 6.3 g/dL (6.0-8.3); Sodium 133 mmol/L (136-145)
--- NOTE | 2018-05-23 06:48 | PDOC.CTH ---
Cardiology Progress Note - Subjective No complaints this am. States feels great. - Objective Vital Signs Temp Pulse Ox 05/23/18 04:00 98.5 F 05/23/18 03:47 92 L 05/23/18 00:00 98.6 F 05/22/18 20:00 98.6 F 100 Weight 193 lb 4 oz 05/21/18 05/22/18 05/23/18 06:59 06:59 06:59 Intake Total 494 910 Output Total 775 Balance 494 135 - Physical Examination General/Neuro: alert & oriented x3, NAD Neck: carotid US brisk, no JVD present Lungs: unlabored respirations Heart: RRR Abdomen: NT/ND, soft Extremities: + edema B - Labs Result Diagrams: 05/23/18 05:20 05/23/18 05:20 Troponin/CKMB CK-MB (CK-2) 22.3 ng/mL (0-6.6) H* 05/22/18 06:25 Troponin I 1.346 ng/mL (< 0.028) H* 05/22/18 06:25 - Assessment/Plan Severe CAD s/p CABG Tobacco abuse Type I [place] Very difficult situation for pt with limited options Stent to the RCA (previous multiple stents placed) with in stent restenosis. Severe distal disease with no out flow present. Previous occluded LAD with no graft (WEAVER tot he IR) and had much difficulty engaging the LM (Occluded?) Previously know occluded circ and LAD Treat medically Unfortunately pt continues to smoke and difficulty with compliance although did state prior to angio he will take meds. Not sure a BMS was a good option. On ASA, plavix, BB and statin Do not recommend further interventions to the RCA given no good outflow. INcrease risk of restenosis. Outflow difficult to assess prior to stent placement given limited flow from 99% stenosis Dialysis HR in the mid 50's. Do not recommend BB at this time Ok to floor today
--- NOTE | 2018-05-23 07:10 | OP ---
DATE OF PROCEDURE: ADDENDUM: Mr. Grande underwent coronary angiography. There was much difficulty in engagement of the left main artery. Multiple catheters were used. He did have a previous history of 100% occlusion of the LAD and circumflex artery in 2017. It was decided not to proceed with any further images. He did have a WEAVER to the ramus was patent. He also had a vein graft to the OM branch that was also patent. Two other grafts were previously occluded. His right coronary artery had multiple stents present from the proximal to distal region. There was a focal in-stent restenoses present in the mid RCA. The distal RCA was not well visualized, likely due to limited flow. We decided to proceed with intervention. There was a clemons's crook noted. He did require 2 Luge wires for balloon support. He then required a Mailman wire in addition to the 2 Luge wires for support of the stent to the mid region. I was concerned about the RPL branch given that it was not well visualized. There was concern for some thrombus. The outflow was unknown. After multiple inflations initially, there was still no good flow. After stent placement, the area with stented region was well apposed. There was 10% residual stenosis, but still no good outflow. A 2.0 balloon was then used to visualize outflow. After one balloon inflation, there was some staining present. The balloon was then removed. We decided to proceed with Pronto catheter. The Pronto with Mailman wire and Luge would not pass the mid distal elbow of the right coronary artery. After adenosine, verapamil and nitroglycerin were given, it was decided to not proceed with any further intervention. The vessel appeared too small for any further stents. He has had multiple stents performed in the past with continued in-stent restenoses and was concerned about placing yet another stent, but in this case did not feel there were good options. Unfortunately, Mr. Grande continues to smoke and had not taken his medicines over the last 3 to 4 days. He was placed on Integrilin in addition to Plavix. Job ID: [id number]
[2018-05-23] MEDS: Aspirin Chewable 81 MG TAB PO SCH (09:32)
[2018-05-23] MEDS: Fish Oil 1,000 MG CAP PO SCH ×2 (09:32→21:03)
[2018-05-23] MEDS: Amlodipine 10 MG TAB PO SCH (09:32)
[2018-05-23] MEDS: Furosemide 40 MG TAB PO SCH (09:33)
--- NOTE | 2018-05-23 13:21 | PRG ---
DATE OF SERVICE: 05/23/2018 SUBJECTIVE: A 58-year-old gentleman, being seen for end-stage renal disease. Continue peritoneal dialysis. OBJECTIVE: CONSTITUTIONAL: The patient is awake and alert. VITAL SIGNS: Afebrile, pulse 72, breathing 16, and blood pressure 131/79. GENERAL APPEARANCE AND MENTAL STATUS: Fair. HEAD/NECK: Normocephalic. Atraumatic. EYES: EOMI. No deformity. EARS: Clear. No ulcers. NOSE: Intact. No lesions. MOUTH: Clear. No discharge. THROAT: Clear. No exudate. LUNGS: Clear. No crackles. CARDIAC: S1, S2. No rub. ABDOMEN: Benign. Bowel sounds positive. GENITALIA/RECTUM: Zavala absent. BACK/EXTREMITIES: Edema 0+. NEUROLOGICAL: Alert and motor intact. SKIN: LYMPHATICS: LABORATORY DATA: Labs show hemoglobin 12.4. ASSESSMENT: 1. Stage 6 chronic kidney disease. Continue peritoneal dialysis. 2. Hypertension, stable. 3. Anemia, stable. 4. Medication based on GFR appropriate. Job ID: [id number]
[2018-05-23] MEDS: Gabapentin 300 MG CAP PO SCH (21:03)
[2018-05-23] MEDS: Atorvastatin Calcium 40 MG TAB PO SCH (21:03)
--- NOTE | 2018-05-24 05:48 | PDOC.FM ---
- Subjective Subjective: Pt is doing well today. He denies chest pain, dyspnea, SOB, or abdominal pain. - Objective MAR Reviewed: Yes Vital Signs & Weight: Vital Signs (12 hours) Temp Pulse Resp BP Pulse Ox 05/24/18 04:00 98.3 F 55 L 16 126/58 L 96 05/24/18 00:00 98.3 F 54 L 16 120/58 L 95 05/23/18 20:00 98.7 F 62 16 140/65 96 Weight Weight 87.657 kg Most Recent Monitor Data Heart Rate from ECG 61 NIBP 139/69 NIBP BP-Mean 96 Respiration from ECG 19 SpO2 93 I&O: 05/22/18 05/23/18 05/24/18 06:59 06:59 06:59 Intake Total 494 910 487 Output Total 775 Balance 494 135 487 Result Diagrams: 05/23/18 05:20 05/23/18 05:20 Phys Exam - Physical Examination Constitutional: NAD HEENT: moist MMs Neck: full ROM Respiratory: no wheezing, no rales, clear to auscultation bilateral Cardiovascular: RRR, no significant murmur Gastrointestinal: soft, non-tender, no distention, positive bowel sounds Musculoskeletal: no edema, pulses present Neurological: moves all 4 limbs Psychiatric: normal affect, A&O x 3 Skin: cap refill <2 seconds Dx/Plan (1) Tobacco abuse Code(s): Z72.0 - TOBACCO USE Status: Acute (2) typical chest pain Status: Acute (3) ESRD on peritoneal dialysis Code(s): N18.6 - END STAGE RENAL DISEASE; Z99.2 - DEPENDENCE ON RENAL DIALYSIS Status: Acute (4) Hypokalemia Code(s): E87.6 - HYPOKALEMIA Status: Acute (5) Normocytic anemia Code(s): D64.9 - ANEMIA, UNSPECIFIED Status: Acute (6) Syncope Code(s): R55 - SYNCOPE AND COLLAPSE Status: Acute (7) CAD (coronary artery disease) Code(s): I25.10 - ATHSCL HEART DISEASE OF [place] CORONARY ARTERY W/O ANG PCTRS Status: Chronic (8) COPD (chronic obstructive pulmonary disease) Status: Chronic (9) Depression Code(s): F32.9 - MAJOR DEPRESSIVE DISORDER, SINGLE EPISODE, UNSPECIFIED Status : Chronic (10) Diabetes Code(s): E11.9 - TYPE 2 DIABETES MELLITUS WITHOUT COMPLICATIONS Status: Chronic Qualifiers: Diabetes mellitus type: type 2 Diabetes mellitus complication status: with kidney complications Diabetes mellitus complication detail: with chronic kidney disease Chronic kidney disease stage: stage 4 (severe) (11) History of coronary artery bypass graft x 3 Code(s): Z95.1 - PRESENCE OF AORTOCORONARY BYPASS GRAFT Status: Chronic (12) Hypertension Code(s): I10 - ESSENTIAL (PRIMARY) HYPERTENSION Status: Chronic - Plan Plan: This is a 58 yo male with a PMH of CAD s/p CABG, COPD, DM2, ESRD on PD, HTN, HLD , HFrEF Typical chest pain likely 2/2 NSTEMI 2/2 ischemia -EKG shows NSR -Troponin 0.117->0.127->.0349->1.34 -Heart score of 6 -Nitro and Morphine PRN for pain -renal Diet -Pt taken for cath POD2, with 1 stent placement in RCA -Dr. Christianson consulted, we will appreciate their recommendations -Likely home today to follow up Outpt with Sammy Syncope -Vasovagal -No Head CT changes -Cardiac monitoring on tele -Pt received 2 ifeanyi in scalp from OSH, will need removed 05/28 Hypokalemia, resolved ESRD -Cr at baseline -Dr. Buck consulted, will appreciate recommendations, daily peritoneal dialysis DM2 -Continue home Lantus 10U prior to dialysis, 5U after -Mild SSI, ACHS accuchecks Normocytic anemia, stable -Likely 2/2 ESRD Elevated BNP -203.6 HTN -Continue home meds HLD -Continue home meds CAD s/p CABG and Stents -Continue home medications HFrEF -Echo 12/30/18 shows EF of 50-55% with diastolic dysfunction Addendum - Attending - Attending Attestation Date/Time: 05/24/181917 I personally evaluated the patient and discussed the management with Dr. Lara I agree with the History, Examination, Assessment and Plan documented above with any addition or exceptions noted below. Patient BS not well controlled with current efforts otherwise patient stable daily peritoneal dialysis s/p NSTEMI s/p Stent placement no CP no c/o encourage smoking cessation d/c today
--- NOTE | 2018-05-24 06:07 | PDOC.CTH ---
Cardiology Progress Note - Objective Vital Signs Temp Pulse Resp BP Pulse Ox 05/24/18 04:00 98.3 F 55 L 16 126/58 L 96 05/24/18 00:00 98.3 F 54 L 16 120/58 L 95 05/23/18 20:20 96 05/23/18 20:00 98.7 F 62 16 140/65 96 Weight 193 lb 4 oz 05/22/18 05/23/18 05/24/18 06:59 06:59 06:59 Intake Total 494 910 487 Output Total 775 Balance 494 135 487 - Physical Examination General/Neuro: alert & oriented x3, NAD Neck: carotid US brisk, no JVD present Lungs: CTA, unlabored respirations Heart: PMI normal, RRR Abdomen: NT/ND, soft Extremities: + femoral B - Telemetry Telemetry Rhythm: SR - Labs Result Diagrams: 05/23/18 05:20 05/23/18 05:20 Troponin/CKMB CK-MB (CK-2) 22.3 ng/mL (0-6.6) H* 05/22/18 06:25 Troponin I 1.346 ng/mL (< 0.028) H* 05/22/18 06:25 - Assessment/Plan Severe CAD s/p CABG Tobacco abuse Type I [place] s/p stent Doing well Continue ASA, plavix, statin Hold BB secondary to low HR Stop smoking Continue to be complinat with meds and dialysis No further recommendations Plan to fu in office in 203 weeeks
[2018-05-24] MEDS: HumaLOG 300 UNITS/3 ML VIAL SC PRN ×2 (06:58→12:26)
[2018-05-24] MEDS: Furosemide 40 MG TAB PO SCH (08:27)
[2018-05-24] MEDS: Amlodipine 10 MG TAB PO SCH (08:27)
[2018-05-24] MEDS: Aspirin Chewable 81 MG TAB PO SCH (08:27)
[2018-05-24] MEDS: Fish Oil 1,000 MG CAP PO SCH (08:27)
[2018-05-24] MEDS ORDERED: Clopidogrel Bisulfate 75 MG TAB PO SCH (09:00)
--- NOTE | 2018-05-24 09:57 | PDOC.CTH ---
Cardiology Progress Note - Subjective No complaints. Patient denies any CP, SOB or BRUCE. Labs and tele reviewed. - Objective Vital Signs Temp Pulse Resp BP BP Pulse Ox 05/24/18 08:27 57 L 115/59 L 05/24/18 07:59 98.1 F 57 L 16 115/59 L 95 05/24/18 04:00 98.3 F 55 L 16 126/58 L 96 05/24/18 00:00 98.3 F 54 L 16 120/58 L 95 Weight 193 lb 4 oz 05/23/18 05/24/18 05/25/18 06:59 06:59 06:59 Intake Total 910 487 490 Output Total 775 Balance 135 487 490 - Physical Examination General/Neuro: alert & oriented x3 Neck: no JVD present Lungs: CTA Heart: RRR Abdomen: NT/ND - Telemetry Telemetry Rhythm: SB-NSR - Labs Result Diagrams: 05/23/18 05:20 05/23/18 05:20 Troponin/CKMB CK-MB (CK-2) 22.3 ng/mL (0-6.6) H* 05/22/18 06:25 Troponin I 1.346 ng/mL (< 0.028) H* 05/22/18 06:25 - Assessment/Plan 1. Severe multi-vessel CAD 2. s/p CABG 3. Tobacco abuse 4. NSTEMI-I 5. s/p stent 6. ESRD on PD 7. Bradycardia Asymptomatic. No complaints. Ok for discharge from my standpoing. Continue ASA, plavix and statin. Tobacco cessation given once again. Patient not on bblocker due to dhara. F/U 2-3 weeks in office.
[2018-05-24 11:45] VITALS: BP 134/67; TEMP 98.2
--- NOTE | 2018-05-24 12:33 | PRG ---
DATE OF SERVICE: 05/24/2018 SUBJECTIVE: A 58-year-old gentleman being seen for end-stage kidney disease. The patient denies any nausea, vomiting, or chest pain. OBJECTIVE: GENERAL: The patient is awake and alert. VITAL SIGNS: Afebrile. , breathing 16, blood pressure 126/58. GENERAL APPEARANCE AND MENTAL STATUS: Fair. HEAD/NECK: Normocephalic. Atraumatic. EYES: EOMI. No deformity. EARS: Clear. No ulcers. NOSE: Intact. No lesions. MOUTH: Clear. No discharge. THROAT: Clear. No exudate. LUNGS: Clear. No crackles. CARDIAC: S1, S2. No rub. ABDOMEN: Benign. Bowel sounds positive. GENITALIA/RECTUM: Zavala absent. BACK/EXTREMITIES: Edema 0+. NEUROLOGICAL: Alert and motor intact. SKIN: LYMPHATICS: LABORATORY DATA: Reviewed. IMPRESSION: 1. Stage 3 chronic kidney disease. Continue peritoneal dialysis. 2. Hypertension, stable. 3. Anemia, stable. 4. Medication based on GFR appropriate. Job ID: [id number]
--- NOTE | 2018-05-25 15:02 | DIS ---
DATE OF ADMISSION: 05/21/2018 DATE OF DISCHARGE: 05/25/2018 ADMITTING ATTENDING: Fer Petty MD DISCHARGE ATTENDING: Awais Fair MD RESIDENT: Kel Lara DO CONSULTS: 1. Chaparro Christianson MD, Cardiology. 2. Song Coronado MD, Nephrology. PROCEDURES: Cardiac catheterization with stent placement in the RCA and with of catheterization due to obstruction. PRIMARY DIAGNOSIS: Non-ST elevation myocardial infarction. SECONDARY DIAGNOSES: Heart failure with preserved ejection fraction, type 2 diabetes, hypertension, hyperlipidemia, end-stage renal disease on peritoneal dialysis, coronary artery disease status post coronary artery bypass grafting x5 vessels and then x10 vessels, history of two previous myocardial infarctions, tobacco abuse. DISCHARGE MEDICATIONS: 1. Plavix 75 mg p.o. daily. 2. Sertraline 50 mg p.o. daily. 3. Amlodipine 5 mg p.o. q.a.m. 4. Aspirin 81 mg p.o. daily. 5. Atorvastatin 40 mg p.o. at bedtime. 6. Calcitriol 0.5 mcg p.o. daily. 7. PhosLo 1334 mg p.o. t.i.d. with meals. 8. Furosemide 40 mg p.o. daily. 9. Gabapentin 300 mg p.o. at bedtime. 10. Glipizide 5 mg p.o. b.i.d. 11. Insulin glargine 10 units prior to peritoneal dialysis and 5 units after peritoneal dialysis. 12. Fish oil one capsule b.i.d. 13. Trazodone 50 mg p.o. at bedtime. DISCONTINUED MEDICATIONS: None. HISTORY OF PRESENT ILLNESS/HOSPITAL COURSE: This is a 58-year-old male with past medical history as above, presented with chest pain described as an elephant sitting on his chest. He also has complained of dyspnea and radiation to his left arm. He said he is smoking one cigarette at this time. He denied diaphoresis. The patient was admitted and Cardiology was consulted as above. The patient's troponin has trended to 1.3, and patient was taken back for heart catheterization as above. The patient tolerated the procedure and chest pain, which was relieved. The patient improved and remained asymptomatic following the procedure. The patient was seen by Cardiology to be managed medically going forward as this patient has had multiple instrumentation of his heart vessels. The patient was discharged in good condition to follow up with cardiac rehab, Dr. Christianson on June [address] Yonas Adames on May 30. DISPOSITION: Stable. DISCHARGE INSTRUCTIONS: 1. Location: Home. 2. Diet: Heart healthy and diabetic and renal high-protein. 3. Activity: Cardiopulmonary limits. 4. Followup: As instructed above. Job ID: [id number]
== END 2018-05-24 14:30 | disposition home or self-care (01) | DRG 246 ==
LOC: ERS 20:03 → IMCU/EMU 21:45 → CCU 05-22 15:06 → 2SE 05-23 14:39
PROVIDERS: ADMIT Student in an Organized Health Care Education/Training Program; ATTEND Student in an Organized Health Care Education/Training Program
PROC: 4A023N7 Measurement of Cardiac Sampling and Pressure, Left Heart, Percutaneous Approach (ICD-10-PCS; principal; 2018-05-21)
PROC: 027034Z Dilation of Coronary Artery, One Artery with Drug-eluting Intraluminal Device, Percutaneous Approach (ICD-10-PCS; 2018-05-21)
PROC: B2111ZZ Fluoroscopy of Multiple Coronary Arteries using Low Osmolar Contrast (ICD-10-PCS; 2018-05-21)
DX: I21.4 Non-ST elevation (NSTEMI) myocardial infarction (principal); N18.6 End stage renal disease; I50.22 Chronic systolic (congestive) heart failure; I13.2 Hypertensive heart and chronic kidney disease with heart failure and with stage 5 chronic kidney disease, or end stage renal disease; J44.9 Chronic obstructive pulmonary disease, unspecified; E11.9 Type 2 diabetes mellitus without complications; E78.5 Hyperlipidemia, unspecified; I25.2 Old myocardial infarction; Z95.1 Presence of aortocoronary bypass graft; E11.22 Type 2 diabetes mellitus with diabetic chronic kidney disease; Z99.2 Dependence on renal dialysis; E87.6 Hypokalemia; D63.1 Anemia in chronic kidney disease; Z72.0 Tobacco use; I25.110 Atherosclerotic heart disease of native coronary artery with unstable angina pectoris
CPT/HCPCS: 36415; 36416; 76942; 80048; 80053; 80061; 82553; 84484; 85025; 85347; 85610; 85730; 92928; 92977; 93005; 93010; 93454; 93455; 94760; 99152; 99153; C1725; C1757; C1769; C1874; C1887; C9600; J1644; J1825; J2270; Q9967

== ENCOUNTER 2019-11-23 06:23 | Inpatient (IN) | payer MEDICARE, MEDICAID, OTHER ==
[2019-11-22 10:15] VITALS: BMI 29.4
[2019-11-23 07:26] LABS: #Basophils 0.1 thou/uL (0.0-0.2); #Eosinphils 0.9 thou/uL (0.0-0.7); #Lymphocytes 1.4 thou/uL (1.20-3.40); #Monocytes 0.6 thou/uL (0.11-0.59); #Neutrophils 7.8 thou/uL (1.40-6.50); %Basophils 0.6 % (0.0-1.0); %Eosinophils 8.4 % (0.0-10.0); %Lymphocytes 12.8 % (21.0-51.0); %Monocytes 5.3 % (0.0-10.0); %Neutrophils 72.9 % (42.0-75.0); Mean Corpuscular HGB CONC 33.6 g/dL (32.0-36.0); Mean Corpuscular Hemoglobin 33.8 pg (27.0-31.0); Mean Platelet Volume 7.6 fL (7.4-10.4); Platelet Count 235 thou/uL (130-400); RBC Distribution Width 11.8 % (11.5-14.5); Red Blood Cell (RBC) Count 2.95 mill/uL (4.70-6.10); White Blood Cell (WBC) Count 10.7 thou/uL (4.8-10.8)
[2019-11-23 07:39] LABS: Anion Gap 19 mmol/L (10-20); BUN (Urea Nitrogen) 69 mg/dL (8.4-25.7); Calc. Creatinine Clearance 15 mL/min (70-130); Calcium 6.2 mg/dL (7.8-10.44); Carbon Dioxide 18 mmol/L (22-29); Chloride 109 mmol/L (98-107); Estimated GFR-MDRD 8; Glucose 143 mg/dL (70-105); Potassium 4.4 mmol/L (3.5-5.1); Sodium 142 mmol/L (136-145)
[2019-11-23] MEDS ORDERED: Sodium Chloride 0.9% 20 ML ONE (07:40)
[2019-11-23] MEDS ORDERED: Lidocaine 1% w/Epinephrine 1:100K 20 ML VIAL ONE (07:40)
[2019-11-23] MEDS ORDERED: Bupivacaine 0.25% HCL 30 ML VIAL ONE ×2 (07:40→08:44)
[2019-11-23] MEDS ORDERED: Heparin 5,000 UNITS/ML VIAL ONE ×2 (07:43→09:22)
[2019-11-23] MEDS ORDERED: SUGAMMADEX SODIUM 200 MG/2 ML VIAL ONE (08:46)
[2019-11-23] MEDS ORDERED: Fentanyl 100 MCG/2 ML VIAL ONE ×2 (08:46→10:56)
[2019-11-23] MEDS ORDERED: Ondansetron ODT 4 MG TAB PO PRN (09:16)
[2019-11-23] MEDS ORDERED: Morphine 2 MG/ML VIAL SLOW IVP PRN (09:16)
[2019-11-23] MEDS ORDERED: hydrALAZINE 20 MG/ML VIAL SLOW IVP PRN (09:16)
[2019-11-23] MEDS ORDERED: HumaLOG 300 UNITS/3 ML VIAL SC PRN (09:16)
[2019-11-23] MEDS ORDERED: Dextrose 50% Abboject 50 ML SYRINGE SLOW IVP PRN (09:16)
[2019-11-23] MEDS ORDERED: Dextrose 5% in Water 1,000 ML IV PRN (09:16)
[2019-11-23] MEDS ORDERED: Heparin 10,000 UNITS/ 10 ML VIAL ONE ×2 (09:22)
[2019-11-23] MEDS ORDERED: Insulin Glargine 10 UNITS in Pre-Filled Syringe 1 EACH SC SCH (10:00)
[2019-11-23] MEDS ORDERED: Insulin Glargine 5 UNITS in Pre-Filled Syringe 1 EACH SC SCH (10:00)
[2019-11-23] MEDS ORDERED: Protamine Sulfate 50 MG/5 ML VIAL ONE (10:13)
[2019-11-23] MEDS ORDERED: Protamine Sulfate 250 MG/25 ML VIAL ONE (10:13)
--- NOTE | 2019-11-23 10:25 | HP ---
HISTORY OF PRESENT ILLNESS: Timothy Grande is a 59-year-old male patient with end-stage renal disease, on peritoneal dialysis. In December 2017, I placed a right IJ hemodialysis catheter, left Kiran fistula, peritoneal dialysis catheter laparoscopic as well as repairing epigastric hernia incisional from prior coronary artery bypass grafting. Omentopexy was not necessary. The patient has been doing peritoneal dialysis at home, although did not do dialysis for 3 weeks. His Kiran fistula is clotted. Dr. Coronado is his financial reserve clerk. I have been asked to see him regarding removal of his PD catheter, placement of a hemodialysis catheter, and placement of a left arm fistula. He understands risks and benefits of procedure and consents, we will proceed. The patient has been noncompliant in taking his medications. He smokes a pack a day. Alcohol, none. PAST MEDICAL HISTORY: Diabetes mellitus; hypertension; coronary artery disease, coronary artery bypass grafting 10 years ago, he had 5 to 7 stents placed at different times prior to bypass grafting, since that time he has had several stents placed. Dr. Christianson performed a cardiac catheterization in April 2018. There was a previous stent occlusion of the LAD and circumflex artery in 2016. He had a WEAVER to the ramus that was patent and had a vein graft to OM branch that was patent. The other two grafts were occluded. Right coronary artery had multiple stents from the proximal to distal region. There was focal in-stent restenosis present in RCA. Distal RCA was not well-visualized. He had intervention and DIRECTOR OF GOVERNMENT SALES and stents placed. The patient states he has since had a cardiac catheterization by [facility] and grounds director and there were no interventions. He has hypertension, coronary artery disease, and diabetes mellitus. PAST SURGICAL HISTORY: Colonoscopy 4 years ago in [place]. He states he had 12 polyps removed. As above, left Kiran fistula hemodialysis catheter, PD catheter, incisional hernia repair, cataract surgery, and cholecystectomy. MEDICATIONS: 1. Amlodipine 5 mg orally q.a.m. 2. Aspirin 81 mg a day. 3. Atorvastatin 40 mg a day. 4. Calcitriol 0.5 mcg daily. 5. Calcium acetate with meals 3 times a day. 6. Plavix 75 mg a day. 7. Furosemide 40 mg a day. 8. Gabapentin 300 mg at bedtime. 9. Glipizide 5 mg twice a day. 10. Insulin 5 units subcu as directed usually with dialysis. 11. Insulin 10 units subcu as directed. 12. Sertraline (Zoloft) 50 mg at bedtime. 13. Trazodone 50 mg daily. The patient is followed by Dr. Coronado, Nephrology. He has association with [facility], planning on hemodialysis Tuesday, Tuesday, Tuesday. He is single, lives alone. 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 PHYSICAL EXAMINATION: VITAL SIGNS: Blood pressure 150/70, respiratory rate 18, and heart rate 80. HEAD, EARS, EYES, NOSE AND THROAT: Unremarkable. LUNGS: Clear to auscultation. CARDIAC: Regular rate and rhythm without murmur or gallop. Sternotomy scar. ABDOMEN: Soft. Well-healed incisional hernia without recurrent hernia in upper abdomen. PD catheter in left lower quadrant. Thrombosed Kiran fistula, left wrist. EXTREMITIES: Unremarkable. LABORATORY DATA: White count 10, hemoglobin 10, and platelet count 235,000. Sodium 142, potassium 4.4, chloride 109, carbon dioxide 18, BUN 69, and creatinine 7.17. ASSESSMENT/PLAN: 1. End-stage renal disease, noncompliant with medications and peritoneal dialysis and inadequate peritoneal dialysis. Per Dr. Coronado, we will remove his PD catheter, place hemodialysis catheter, and place a left arm fistula more proximally. He understands risks and benefits and consents. 2. Coronary artery disease. 3. Diabetes mellitus. 4. Hypertension. Job ID: [id number]
--- NOTE | 2019-11-23 11:01 | RAD ---
PORTABLE CHEST: Date: 11/23/2019 HISTORY: Catheter placement. COMPARISON: 05/21/2018 exam. FINDINGS: Right-sided HemoSplit catheter is present. Catheter tip overlies the distal superior vena cava/right atrium junction. No pneumothorax is seen. A vague, nodule appearing area in the right mid lung field is partially obscured by the catheter on this examination, and there are atelectatic changes in the r ight lung base. IMPRESSION: 1. Right-sided HemoSplit catheter present. No signs of pneumothorax. 2. Nodule in the right upper lobe on the previous CT examination. This is a large granuloma. Also, s ome of the densities in the right base are related to partially calcified granulomas. POS: GIN
[2019-11-23] MEDS ORDERED: PROPOFOL 200 MG/20 ML VIAL ONE (14:04)
[2019-11-23] MEDS ORDERED: Lidocaine 1% PF 5 ML VIAL ONE (14:04)
[2019-11-23] MEDS: Morphine 4 MG/ML VIAL SLOW IVP PRN ×4 (14:30→22:44)
--- NOTE | 2019-11-23 14:52 | OP ---
DATE OF PROCEDURE: 11/23/2019 PREOPERATIVE DIAGNOSES: End-stage renal disease, inadequate noncompliant peritoneal dialysis, thrombosed Kiran fistula placed a year and a half ago in left arm, chronic tobacco abuse, coronary artery disease, diabetes, hypertension. POSTOPERATIVE DIAGNOSES: End-stage renal disease, inadequate noncompliant peritoneal dialysis, thrombosed Kiran fistula placed a year and a half ago in left arm, chronic tobacco abuse, coronary artery disease, diabetes, hypertension. PROCEDURES PERFORMED: Hemodialysis catheter right internal jugular placement. Left arm primary fistula perforating branch antecubital vein to the proximal radial artery. Primary outflow cephalic vein although secondary communication to the basilic vein noted anatomically secondarily. Removal of peritoneal dialysis catheter. ANESTHESIA: General, local 0.25% Marcaine 60 mL mixed with 1% Xylocaine with epinephrine 20 mL. DESCRIPTION OF PROCEDURE: The patient was taken to the operating room where under general anesthesia, neck and chest and left upper extremity and abdomen and PD catheter were prepared with ChloraPrep and draped in routine fashion. Ultrasound guidance was used to cannulate the right internal jugular vein. Local anesthetic infiltrated in the operative site, J-wire threaded, trocar catheter removed. Skin site enlarged sharply. Stab incision was made over the right chest. Using the cut tunneling device, the pre-curved [employer] cuffed tunneled hemodialysis catheter tunneled between the 2 incisions, placed the fabric cuff beneath the skin exit site and catheter secured with 2 interrupted sutures of 3-0 nylon. Sterile dressing applied. Small and medium-sized dilators were placed over the J-wire into the internal jugular vein and removed. Dilator and Peel-Away sheath placed with J-wire in superior vena cava. Dilator and J-wire removed. Catheter was placed with Peel-Away sheath. Peel-Away sheath removed. Platysma was approximated with 4-0 Monocryl, skin with subdermal 4-0 Monocryl, and [place] glue applied. Each port aspirated blood and flushed with saline solution, heparinized saline solution with 1000 units of heparin per mL indicating volume of port. Attention was then turned to the left arm where incision was made in the proximal volar forearm just below the antecubital fossa longitudinally, carried down through skin and subcutaneous tissue and a very large antecubital vein identified. It bifurcated into large cephalic and basilic veins. Posteriorly of the cephalic vein, a large perforating branch was dissected free. Branches were divided between clips and 4-0 silk ties, spatulated, and the patient was given 6000 units of heparin intravenously. Vein interrogated with coronary dilators, passing coronary dilators from a 2 mm to 4 mm coronary dilator out the cephalic vein without obstruction, had excellent back bleeding. Brachial, proximal radial artery, and ulnar artery dissected free, controlled with vascular clamps and a longitudinal arteriotomy made sharply in the proximal radial artery and elongated with the Tobin scissors. An end vein to side proximal artery anastomosis completed with continuous suture of 6-0 Prolene. Remaining branches ligated with full silk ties and vascular clamps released. Good hemostasis obtained with 6-0 Prolene. The patient was given 25 mg of protamine by Anesthesia. Good Doppler signal noted in the cephalic vein outflow that was unaffected by occlusion of the basilic vein communication. The patient tolerated the procedure well. Good hemostasis noted. Subcutaneous tissue was approximated with 3-0 Monocryl, skin with subdermal 4-0 Monocryl, and [place] glue applied. Attention was then turned to the PD catheter where the PD catheter and both cuffs dissected free from the skin and subcutaneous tissue and anesthetized there with local anesthetic, removed the PD catheter intact, and placed a gauze dressing. The patient tolerated the procedure well. Job ID: [id number]
[2019-11-23 15:48] LABS: HBSAg Index 0.24 S/CO (0-0.99); Hep B Surf Ag Non-Reactive S/CO (NonReactive)
[2019-11-23] MEDS: Calcium Acetate 667 MG CAP PO SCH ×2 (16:22→17:20)
[2019-11-23] MEDS ORDERED: Calcium Carbonate 500 MG ChewTAB PO PRN (16:36)
--- NOTE | 2019-11-23 17:42 | CON ---
DATE OF CONSULTATION: 11/23/2019 REASON FOR CONSULTATION: End-stage renal disease for maintenance hemodialysis. HISTORY OF PRESENT ILLNESS: This is a very pleasant 59-year-old gentleman with significant coronary artery disease and end-stage renal disease, on peritoneal dialysis. The patient failed to complete peritoneal dialysis on a regular basis, so was switched over to hemodialysis after consent. The patient at this time denies any nausea, vomiting, or chest pain. The patient will be dialyzed on Tuesday, Tuesday, Tuesday. PAST MEDICAL HISTORY: Significant for; 1. Hypertension. 2. Coronary artery disease, inoperable. 3. History of diabetes mellitus. 4. History of tunneled dialysis catheter. 5. History of AV fistula. 6. History of hepatitis C. 7. History of CABG. 8. History of stent placement. 9. Cholecystectomy. 10. Cataract surgery. SOCIOECONOMIC HISTORY: No alcohol or drug abuse. FAMILY HISTORY: Negative for ESRD. ALLERGIES: REVIEWED. HOME MEDICATIONS: List reviewed. HOSPITAL MEDICATIONS: List reviewed. REVIEW OF SYSTEMS: A 15-point review of systems was performed, negative except for positives noted above. HEENT: Eyes intact, no diplopia. Ears: No hearing loss or earache. Nose: No discharge or bleeding. CHEST: No cough or phlegm. ABDOMEN: No nausea or vomiting. GENITOURINARY: No hematuria. No Zavala catheter. MUSCULOSKELETAL: No low back pain. No joint swelling or pain. NEUROLOGICAL: No syncope. No seizures. SKIN: No complaints of rash or itching. PSYCHIATRIC: No depression. CONSTITUTIONAL: No weight loss or loss of appetite. PHYSICAL EXAMINATION: GENERAL: The patient is awake and alert. VITAL SIGNS: Afebrile, pulse 75, breathing at 16, blood pressure 130/70. HEENT: Head normocephalic and atraumatic. Eyes intact, no ulcers. Nose intact, no ulcers. Ears intact, no ulcers. NECK: Supple. No JVD. CHEST: Symmetrical and clear. CARDIOVASCULAR: Shows S1 and S2, no rub, no murmur. GASTROINTESTINAL: Abdomen is soft, bowel sounds positive. EXTREMITIES: Show no edema or ulcers. SKIN: Shows no rash or petechiae. MUSCULOSKELETAL: Shows no joint swelling or stiffness. GENITOURINARY: Shows no Zavala or CVA tenderness. NEUROLOGIC: Motor intact. Cranial nerves intact. ASSESSMENT AND PLAN: 1. Stage 6 chronic kidney disease, plan dialysis. 2. Hypertension, stable. 3. Anemia, stable. 4. Metabolic acidosis. Plan dialysis. Outpatient dialysis has already been setup. Job ID: [id number]
--- NOTE | 2019-11-23 17:51 | CON ---
DATE OF CONSULTATION: 11/23/2019 REASON FOR CONSULTATION: Medical management. HISTORY OF PRESENT ILLNESS: Mr. Grande is a 59-year-old male, who presents for placement of hemodialysis catheter by Dr. Prather. The patient was previously receiving peritoneal dialysis since December 2017, however, he has not done dialysis for the last three weeks. The patient's Kiran fistula is clotted. The patient decided last week that he wanted to switch from peritoneal dialysis to hemodialysis. Dr. Coronado is his cereal miller and he asked Dr. Prather to remove the patient's peritoneal dialysis catheter, place a new hemodialysis catheter, and place a new left arm fistula. Surgery was performed earlier this morning by Dr. Prather. The patient is seen currently postop. He denies any complaints and actually feels very well. The patient notes that he has not been taking any of his home medications. He continues to smoke at least a pack of cigarettes a day. 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 PAST MEDICAL HISTORY: 1. End-stage renal disease. 2. Hypertension. 3. Diabetes mellitus. 4. Coronary artery disease. 5. Depression. 6. Insomnia. 7. Tobacco abuse. 8. Gastroesophageal reflux disease. SURGICAL HISTORY: 1. Colonoscopy four years ago done in [place]. He states he had about 20 polyps removed. 2. Coronary artery bypass grafting, five-vessel, performed 10 years ago approximately. 3. Placement of about 11 stents prior to patient's bypass. 4. Right IJ hemodialysis catheter placement in December 2017. 5. Left Kiran fistula placement in December 2017. 6. Peritoneal dialysis catheter placement in December 2017. 7. Epigastric hernia repair in 2018. 8. Cholecystectomy. 9. Bilateral cataract surgeries, multiple. FAMILY HISTORY: Father with colon cancer, multiple CVA. SOCIAL HISTORY: Smokes one pack per day. Previous alcohol abuse, has not had alcohol "in years." ALLERGIES: ADHESIVE DRESSING. CURRENT MEDICATIONS: 1. Amlodipine 5 mg orally daily. 2. Aspirin 81 mg daily. 3. Atorvastatin 40 mg daily. 4. Calcitriol 0.5 mcg daily. 5. Calcium acetate with meals t.i.d. 6. Plavix 75 mg daily. 7. Furosemide 40 mg daily. 8. Gabapentin 300 mg at bedtime. 9. Glipizide 5 mg b.i.d. 10. Sertraline 50 mg at bedtime. 11. Trazodone 50 mg daily. 12. Lantus, 5 units after dialysis, 10 units prior to dialysis, the patient states he was discontinued from Lantus approximately 1 month ago and has not taken any since. PHYSICAL EXAMINATION: VITAL SIGNS: Blood pressure 179/90, pulse 64, respirations 18, SpO2 100% on room air. HEENT: Normocephalic, atraumatic. Moist mucous membranes. EOMI. Nares patent. RESPIRATORY: Clear to auscultation bilaterally. CARDIAC: Regular rate, regular rhythm, no murmurs. CHEST: Hemodialysis catheter in place over right upper chest with incision clean, dry, intact. ABDOMEN: Soft. Peritoneal dialysis catheter has been removed from left lower quadrant. SKIN: Old fistula at left wrist. New fistula placement in the left upper forearm. EXTREMITIES: Moves all extremities. Nonfocal. LABORATORY DATA: WBC 10.7, RBC 2.95, hemoglobin 10.0, hematocrit 29.7, platelets 235. Sodium 142, potassium 4.4, chloride 109, carbon dioxide 18, BUN 69, creatinine 7.17, estimated GFR of 8, glucose 143, calcium 6.2. Hepatitis B antigen negative. DIAGNOSTIC STUDIES: Chest x-ray on November 23, 2019, reveals right-sided HemoSplit catheter present. Nodule in the right upper lobe as seen on previous CT exam. Thought to be a large granuloma. Some densities in the right base are related to partially calcified granulomas. ASSESSMENT/PLAN: 1. End-stage renal disease, noncompliant with medications and inadequate peritoneal dialysis. The patient had hemodialysis catheter and left arm fistula placed earlier today by Dr. Prather. We will defer management of end-stage renal disease to patient's cereal miller, Dr. Coronado. 2. Coronary artery disease, status post five-vessel CABG and multiple stents. The patient had cardiac catheterization performed by Dr. Christianson in April 2018. The patient states since then, there have been no cardiac interventions and he is followed by [facility] income tax preparer. 3. Diabetes mellitus: The patient has not taken Lantus in over one month. We will place the patient on mild sliding scale insulin with meals and at bedtime. We will assess how many units of Humalog he requires during this hospital stay and we will adjust home insulin accordingly. Continue home glipizide. 4. Hypertension: The patient states he takes lisinopril 10 mg at home, we will continue. We will additionally place on amlodipine 5 mg while in hospital as blood pressure is markedly elevated. We will also have hydralazine available p.r.n. with parameters of greater than 170 systolic and greater than 110 diastolic. 5. Depression: Continue home sertraline. No suicidal ideations or homicidal ideations currently. 6. Tobacco abuse: The patient offered nicotine patch, but declines at this time. 7. Insomnia: Continue home trazodone. 8. Gastroesophageal reflux disease: The patient takes Protonix at home, we will continue. We will also place on p.r.n. Tums if needed for heartburn symptoms. Job ID: [id number] [facility]
[2019-11-23] MEDS: traMADol HCl 50 MG TAB PO PRN ×2 (18:39→22:44)
[2019-11-23] MEDS: Acetaminophen 500 MG TAB PO PRN ×2 (18:39→23:40)
[2019-11-23] MEDS: Heparin 5,000 UNITS/ML VIAL SC SCH (20:00)
[2019-11-23] MEDS: Fish Oil 1,000 MG CAP PO SCH (20:00)
[2019-11-23] MEDS ORDERED: traZODone HCl 50 MG TAB PO SCH (21:00)
[2019-11-23] MEDS ORDERED: Famotidine 20 MG TAB PO SCH (21:00)
[2019-11-23] MEDS ORDERED: Gabapentin 300 MG CAP PO SCH (21:00)
[2019-11-23] MEDS ORDERED: Atorvastatin Calcium 40 MG TAB PO SCH (21:00)
[2019-11-24 05:54] LABS: #Basophils 0.1 thou/uL (0.0-0.2); #Eosinphils 0.9 thou/uL (0.0-0.7); #Lymphocytes 2.2 thou/uL (1.20-3.40); #Monocytes 0.6 thou/uL (0.11-0.59); %Basophils 0.6 % (0.0-1.0); %Eosinophils 7.5 % (0.0-10.0); %Lymphocytes 18.6 % (21.0-51.0); %Monocytes 4.8 % (0.0-10.0); %Neutrophils 68.6 % (42.0-75.0); Hemoglobin 9.8 g/dL (14.0-18.0); Mean Corpuscular HGB CONC 34.1 g/dL (32.0-36.0); Mean Corpuscular Hemoglobin 34.5 pg (27.0-31.0); Platelet Count 174 thou/uL (130-400); RBC Distribution Width 11.8 % (11.5-14.5); Red Blood Cell (RBC) Count 2.84 mill/uL (4.70-6.10); White Blood Cell (WBC) Count 11.7 thou/uL (4.8-10.8)
[2019-11-24 06:13] LABS: Anion Gap 16 mmol/L (10-20); BUN (Urea Nitrogen) 45 mg/dL (8.4-25.7); Calc. Creatinine Clearance 19 mL/min (70-130); Calcium 6.8 mg/dL (7.8-10.44); Carbon Dioxide 23 mmol/L (22-29); Chloride 102 mmol/L (98-107); Estimated GFR-MDRD 10; Glucose 121 mg/dL (70-105); Potassium 4.5 mmol/L (3.5-5.1); Sodium 136 mmol/L (136-145)
--- NOTE | 2019-11-24 06:14 | PDOC.FM ---
- Subjective Subjective: Patient feels well this morning. States he needs refills on some of his home medications including Pantoprazole and Lisinopril, will send. Already has written script for Ultram from Dr. Prather. Spoke with Dr. Prather yesterday and patient is cleared from a surgery standpoint to discharge home. Patient received dialysis yesterday after surgery. It appears he also already has outpatient dialysis scheduled for Mondays, Wednesdays, and Fridays. - Objective MAR Reviewed: Yes Vital Signs & Weight: Vital Signs (12 hours) Temp Pulse Resp BP Pulse Ox 11/24/19 04:34 97.8 F 60 17 135/72 97 11/23/19 23:02 98.0 F 60 17 149/82 H 97 11/23/19 19:17 97 11/23/19 19:14 98.4 F 68 17 130/76 97 Weight Weight 92.986 kg I&O: 11/22/19 11/23/19 11/24/19 06:59 06:59 06:59 Intake Total 480 Balance 480 Result Diagrams: 11/24/19 05:41 11/23/19 07:13 Phys Exam - Physical Examination Constitutional: NAD HEENT: moist MMs Neck: no JVD, supple Respiratory: clear to auscultation bilateral Cardiovascular: RRR, no significant murmur Gastrointestinal: soft, no distention, positive bowel sounds Musculoskeletal: no edema, pulses present Neurological: normal sensation, moves all 4 limbs Psychiatric: normal affect, A&O x 3 Skin: no rash Dx/Plan (1) ESRD (end stage renal disease) on dialysis Code(s): N18.6 - END STAGE RENAL DISEASE; Z99.2 - DEPENDENCE ON RENAL DIALYSIS Status: Acute (2) GERD (gastroesophageal reflux disease) Code(s): K21.9 - GASTRO-ESOPHAGEAL REFLUX DISEASE WITHOUT ESOPHAGITIS Status: Acute Qualifiers: Esophagitis presence: without esophagitis Qualified Code(s): K21.9 - Gastro-esophageal reflux disease without esophagitis (3) Diabetes Code(s): E11.9 - TYPE 2 DIABETES MELLITUS WITHOUT COMPLICATIONS Status: [facility] Qualifiers: Diabetes mellitus type: type 2 Diabetes mellitus complication status: with kidney complications Diabetes mellitus complication detail: with chronic kidney disease Chronic kidney disease stage: stage 4 (severe) (4) Hypertension Code(s): I10 - ESSENTIAL (PRIMARY) HYPERTENSION Status: Chronic Qualifiers: Hypertension type: secondary to other renal disorders Qualified Code(s): I15.1 - Hypertension secondary to other renal disorders; N28.89 - Other specified disorders of kidney and ureter - Plan Plan: Patient is a 59 yo male who presents for placement of hemodialysis catheter and removal of peritoneal catheter by Dr. Prather: #ESRD now on HD -hemodialysis catheter and new left arm fistula placed by Dr. Prather on 11/23/2019 -peritoneal dialysis catheter removed -Dr. Coronado, patient's gun number has arranged for outpatient dialysis on -patient stayed overnight due to receiving anesthesia and no ride, per Dr. Prather is stable for discharge home otherwise from surgery standpoint -Tramadol prn for pain #Diabetes mellitus -continue home Glipizide -home Lantus was discontinued 1 month ago -monitor accuchecks ACHS -mild SSI #HTN -continue home Lisinopril 10 mg -Hydralazine prn for systolic BP >170, diastolic BP >110 #CAD -s/p CABG-5V and multiple stent placements #Depression -continue home Sertraline -no SI/HI #Tobacco abuse -declines nicotine patch -smoking cessation counseling #GERD -continue home Protonix -Tums prn Diet: Renal VTE: Heparin Code status: Okay with intubation, otherwise DNR Dispo: Stable, admitted to obs on surgical unit. Ready for discharge home later this morning. Will send home Rx refills for medications requested.
[2019-11-24] MEDS: traMADol HCl 50 MG TAB PO PRN (06:18)
[2019-11-24] MEDS: Acetaminophen 500 MG TAB PO PRN (06:18)
[2019-11-24] MEDS ORDERED: Furosemide 40 MG TAB PO SCH (07:30)
--- NOTE | 2019-11-24 08:20 | PDOC.BPN ---
- Brief Progress Note Date/Time: 11/24/19 0819 Thank you for this consultation. I personally evaluated the patient and discussed the management with Dr. Maher yesterday afternoon. I agree with the History, Examination, Assessment and Plan documented in a separate dictated H&P from yesterday.
[2019-11-24] MEDS ORDERED: Aspirin Chewable 81 MG TAB PO SCH (09:00)
[2019-11-24] MEDS ORDERED: Amlodipine 5 MG TAB PO SCH (09:00)
[2019-11-24] MEDS ORDERED: Calcitriol 0.25 MCG CAP PO SCH (09:00)
[2019-11-24] MEDS ORDERED: Lisinopril 10 MG TAB PO SCH (09:00)
[2019-11-24] MEDS ORDERED: Clopidogrel Bisulfate 75 MG TAB PO SCH (09:00)
--- NOTE | 2019-11-24 09:18 | DIS ---
DATE OF ADMISSION: 11/23/2019 DATE OF DISCHARGE: 11/24/2019 ADMIT DIAGNOSIS: End-stage renal disease. DISCHARGE DIAGNOSIS: End-stage renal disease. PROCEDURE: Left arm AV fistula by Dr. Prather without complication. CONDITION ON DISCHARGE: Improved. HOSPITAL COURSE: On postop day 1, the patient is doing well, his pain is controlled, he is discharged home. Job ID: [id number]
[2019-11-24] MEDS: Calcium Acetate 667 MG CAP PO SCH (09:34)
[2019-11-24] MEDS: Fish Oil 1,000 MG CAP PO SCH (09:36)
[2019-11-24] MEDS: Heparin 5,000 UNITS/ML VIAL SC SCH (09:38)
[2019-11-24 11:15] VITALS: BP 144/76; TEMP 98.3
[2019-11-25] MEDS ORDERED: Bacitracin Zinc Ointment 30 gm TUBE TOP SCH (09:00)
--- NOTE | 2019-11-25 13:09 | EKG ---
Test Reason : POST OP Blood Pressure : / mmHG Vent. Rate : 067 BPM Atrial Rate : 067 BPM P-R Int : 224 ms QRS Dur : 106 ms QT Int : 480 ms P-R-T Axes : 045 -08 119 degrees QTc Int : 507 ms Sinus rhythm with sinus arrhythmia with 1st degree A-V block Prolonged QT Abnormal ECG When compared with ECG of 21-NOV-2019 16:01, (Unconfirmed) Premature atrial complexes are no longer Present Nonspecific T wave abnormality has replaced inverted T waves in Anterior leads QT has lengthened Confirmed by ISAIAH PARMAR MD ([id number]) on 11/25/2019 1:08:43 PM Referred By: YANA Confirmed By:ISAIAH PARMAR MD
== END 2019-11-24 11:41 | disposition home or self-care (01) | DRG 264 ==
LOC: SDC 06:23 → SURG B 09:16
PROVIDERS: ADMIT Specialist; ATTEND Specialist
PROC: 031C0ZF Bypass Left Radial Artery to Lower Arm Vein, Open Approach (ICD-10-PCS; principal; 2019-11-23)
PROC: 0JH60XZ Insertion of Tunneled Vascular Access Device into Chest Subcutaneous Tissue and Fascia, Open Approach (ICD-10-PCS; 2019-11-23)
PROC: 02HV33Z Insertion of Infusion Device into Superior Vena Cava, Percutaneous Approach (ICD-10-PCS; 2019-11-23)
PROC: 0WPGX3Z Removal of Infusion Device from Peritoneal Cavity, External Approach (ICD-10-PCS; 2019-11-23)
PROC: 3E0234Z Introduction of Serum, Toxoid and Vaccine into Muscle, Percutaneous Approach (ICD-10-PCS; 2019-11-24)
DX: T82.868A Thrombosis due to vascular prosthetic devices, implants and grafts, initial encounter (principal); N18.6 End stage renal disease; I12.0 Hypertensive chronic kidney disease with stage 5 chronic kidney disease or end stage renal disease; E87.2 Acidosis; E11.22 Type 2 diabetes mellitus with diabetic chronic kidney disease; I25.10 Atherosclerotic heart disease of native coronary artery without angina pectoris; D63.1 Anemia in chronic kidney disease; F32.9 Major depressive disorder, single episode, unspecified; G47.00 Insomnia, unspecified; F17.210 Nicotine dependence, cigarettes, uncomplicated; K21.9 Gastro-esophageal reflux disease without esophagitis; Z20.828 Contact with and (suspected) exposure to other viral communicable diseases; Z23 Encounter for immunization; Z95.1 Presence of aortocoronary bypass graft; Z90.49 Acquired absence of other specified parts of digestive tract; Z79.82 Long term (current) use of aspirin; Z79.01 Long term (current) use of anticoagulants; Z79.899 Other long term (current) drug therapy; Z79.4 Long term (current) use of insulin; Z91.15 Patient's noncompliance with renal dialysis; Z91.14 Patient's other noncompliance with medication regimen; Y83.8 Other surgical procedures as the cause of abnormal reaction of the patient, or of later complication, without mention of misadventure at the time of the procedure
CPT/HCPCS: 36415; 36416; 71045; 80048; 85025; 87340; 90935; 93005; 93010; C1752; G0257; J0690; J1642; J1644; J2270; J2704; J2720; J3010; S0020

== ENCOUNTER 2020-06-27 09:59 | Emergency (ER) | payer MEDICARE, MEDICAID ==
[2020-06-27 11:14] LABS: #Basophils 0.1 thou/uL (0.0-0.2); #Eosinphils 0.5 thou/uL (0.0-0.7); #Lymphocytes 1.9 thou/uL (1.20-3.40); #Monocytes 0.8 thou/uL (0.11-0.59); #Neutrophils 8.7 thou/uL (1.40-6.50); %Basophils 0.6 % (0.0-1.0); %Eosinophils 4.4 % (0.0-10.0); %Lymphocytes 16.1 % (21.0-51.0); %Monocytes 6.7 % (0.0-10.0); %Neutrophils 72.2 % (42.0-75.0); Hemoglobin 7.5 g/dL (14.0-18.0); Mean Corpuscular HGB CONC 32.6 g/dL (32.0-36.0); Mean Corpuscular Hemoglobin 29.7 pg (27.0-31.0); Mean Corpuscular Volume 90.9 fL (78.0-98.0); Mean Platelet Volume 7.7 fL (7.4-10.4); Platelet Count 430 thou/uL (130-400); RBC Distribution Width 15.7 % (11.5-14.5); Red Blood Cell (RBC) Count 2.53 mill/uL (4.70-6.10)
[2020-06-27 11:30] LABS: Anion Gap 18 mmol/L (10-20); BUN (Urea Nitrogen) 34 mg/dL (8.4-25.7); Calc. Creatinine Clearance 0 mL/min (70-130); Calcium 9.4 mg/dL (7.8-10.44); Carbon Dioxide 27 mmol/L (22-29); Chloride 92 mmol/L (98-107); Glucose 231 mg/dL (70-105); Potassium 3.3 mmol/L (3.5-5.1); Sodium 134 mmol/L (136-145)
== END 2020-06-27 12:08 | disposition home or self-care (01) ==
LOC: ERS 09:59
DX: I12.9 Hypertensive chronic kidney disease with stage 1 through stage 4 chronic kidney disease, or unspecified chronic kidney disease (principal); N18.4 Chronic kidney disease, stage 4 (severe); E11.22 Type 2 diabetes mellitus with diabetic chronic kidney disease; D63.1 Anemia in chronic kidney disease; E87.6 Hypokalemia; E78.5 Hyperlipidemia, unspecified; F17.210 Nicotine dependence, cigarettes, uncomplicated; Z79.899 Other long term (current) drug therapy
CPT/HCPCS: 36415; 80048; 82274; 85025; 86850; 86900; 86901; 93005

== ENCOUNTER 2020-07-04 11:18 | Inpatient (IN) | payer MEDICARE, MEDICAID ==
[2020-07-04] MEDS ORDERED: Aspirin Chewable 81 MG TAB ONE (13:14)
[2020-07-04 13:19] LABS: #Eosinphils 0.5 thou/uL (0.0-0.7); #Lymphocytes 1.5 thou/uL (1.20-3.40); #Monocytes 0.7 thou/uL (0.11-0.59); #Neutrophils 7.4 thou/uL (1.40-6.50); %Basophils 0.4 % (0.0-1.0); %Eosinophils 4.5 % (0.0-10.0); %Lymphocytes 14.6 % (21.0-51.0); %Monocytes 6.7 % (0.0-10.0); %Neutrophils 73.7 % (42.0-75.0); Mean Corpuscular HGB CONC 30.1 g/dL (32.0-36.0); Mean Corpuscular Hemoglobin 27.6 pg (27.0-31.0); Mean Platelet Volume 6.9 fL (7.4-10.4); Platelet Count 488 thou/uL (130-400); RBC Distribution Width 15.6 % (11.5-14.5); Red Blood Cell (RBC) Count 2.52 mill/uL (4.70-6.10)
[2020-07-04 13:35] LABS: ALT (SGPT) 12 U/L (8-55); AST (SGOT) 11 U/L (5-34); Alkaline Phosphatase 77 U/L (40-110); Anion Gap 15 mmol/L (10-20); BUN (Urea Nitrogen) 51 mg/dL (8.4-25.7); Bilirubin, Total 0.4 mg/dL (0.2-1.2); Calc. Creatinine Clearance 0 mL/min (70-130); Calcium 9.5 mg/dL (7.8-10.44); Carbon Dioxide 30 mmol/L (22-29); Chloride 95 mmol/L (98-107); Globulin 3.6 g/dL (2.4-3.5); Glucose 378 mg/dL (70-105); Magnesium 2.2 mg/dL (1.6-2.6); Potassium 4.1 mmol/L (3.5-5.1); Protein, Total 6.6 g/dL (6.0-8.3); Sodium 136 mmol/L (136-145)
[2020-07-04] MEDS ORDERED: Dextrose 50% Abboject 50 ML SYRINGE SLOW IVP PRN (16:10)
[2020-07-04] MEDS ORDERED: Acetaminophen 325 MG TAB PO PRN (16:10)
[2020-07-04] MEDS ORDERED: Dextrose 5% in Water 1,000 ML IV PRN (16:10)
[2020-07-04] MEDS ORDERED: HumaLOG 300 UNITS/3 ML VIAL SC PRN (16:12)
[2020-07-04] MEDS ORDERED: Magnesium 2 GM/50 ML BAG (IN WATER) ONE (16:12)
[2020-07-04 16:26] LABS: SARS-CoV-2 NAA Rapid Test Not Detected (NotDetected)
[2020-07-04 18:28] VITALS: BMI 28.4
[2020-07-04 19:01] LABS: Critical Call Chem Troponin I RESULT DECREASING
[2020-07-04] MEDS: Nicotine 14 MG PATCH TD SCH (20:20)
[2020-07-04] MEDS: Heparin 5,000 UNITS/ML VIAL SC SCH (20:21)
[2020-07-04] MEDS: Gabapentin 300 MG CAP PO SCH (20:21)
[2020-07-04] MEDS: HumaLOG 300 UNITS/3 ML VIAL SC PRN (20:36)
[2020-07-04 22:04] LABS: Troponin I 0.379 ng/mL (< 0.028)
[2020-07-04] MEDS: traZODone HCl 50 MG TAB PO SCH (23:27)
[2020-07-05 01:10] LABS: Hemoglobin 8.2 g/dL (14.0-18.0); Platelet Count 403 thou/uL (130-400)
[2020-07-05] MEDS ORDERED: DOBUTamine 500 mg/250 ml 250 ML IVPB SCH (01:30)
[2020-07-05 05:00] LABS: #Eosinphils 0.3 thou/uL (0.0-0.7); #Monocytes 0.4 thou/uL (0.11-0.59); #Neutrophils 6.5 thou/uL (1.40-6.50); %Basophils 0.3 % (0.0-1.0); %Eosinophils 4.1 % (0.0-10.0); %Lymphocytes 12.3 % (21.0-51.0); %Monocytes 5.4 % (0.0-10.0); %Neutrophils 77.9 % (42.0-75.0); Hemoglobin 8.1 g/dL (14.0-18.0); Mean Corpuscular HGB CONC 30.2 g/dL (32.0-36.0); Mean Corpuscular Hemoglobin 27.5 pg (27.0-31.0); Mean Corpuscular Volume 91.2 fL (78.0-98.0); Platelet Count 413 thou/uL (130-400); RBC Distribution Width 15.3 % (11.5-14.5); Red Blood Cell (RBC) Count 2.93 mill/uL (4.70-6.10); White Blood Cell (WBC) Count 8.3 thou/uL (4.8-10.8)
[2020-07-05 05:30] LABS: Anion Gap 12 mmol/L (10-20); BUN (Urea Nitrogen) 24 mg/dL (8.4-25.7); Calc. Creatinine Clearance 18 mL/min (70-130); Calcium 8.4 mg/dL (7.8-10.44); Carbon Dioxide 33 mmol/L (22-29); Chloride 95 mmol/L (98-107); Glucose 301 mg/dL (70-105); Potassium 4.1 mmol/L (3.5-5.1); Sodium 136 mmol/L (136-145)
[2020-07-05] MEDS: HumaLOG 300 UNITS/3 ML VIAL SC PRN (06:38)
[2020-07-05] MEDS ORDERED: HumaLOG 300 UNITS/3 ML VIAL SC PRN (07:49)
[2020-07-05 07:51] LABS: Hemoglobin A1c 7.6 % (4.0-6.0)
[2020-07-05 08:03] LABS: CKMB 3.4 ng/mL (0-6.6)
[2020-07-05] MEDS ORDERED: Lidocaine 1% PF 10 ML AMP SC SCH (08:15)
[2020-07-05] MEDS ORDERED: Lidocaine 1% PF 10 ML AMP FS SCH (08:15)
[2020-07-05] MEDS ORDERED: Clopidogrel Bisulfate 75 MG TAB PO SCH (09:00)
[2020-07-05] MEDS ORDERED: Aspirin Chewable 81 MG TAB PO SCH (09:00)
[2020-07-05] MEDS: Heparin 5,000 UNITS/ML VIAL SC SCH ×3 (10:03→21:43)
[2020-07-05 14:33] VITALS: BP 148/76
[2020-07-05] MEDS: Nicotine 14 MG PATCH TD SCH (16:50)
[2020-07-05] MEDS: Gabapentin 300 MG CAP PO SCH (21:43)
[2020-07-05] MEDS: traZODone HCl 50 MG TAB PO SCH (21:43)
[2020-07-06 06:51] VITALS: TEMP 98.2
== END 2020-07-06 08:45 | disposition left against medical advice (07) | DRG 280 ==
LOC: ERS 11:18 → CCU 15:13 → IMCU/EMU 07-05 15:53
PROVIDERS: ADMIT Student in an Organized Health Care Education/Training Program; ATTEND Student in an Organized Health Care Education/Training Program
PROC: 5A1D70Z Performance of Urinary Filtration, Intermittent, Less than 6 Hours Per Day (ICD-10-PCS; principal; 2020-07-04)
PROC: 30233N1 Transfusion of Nonautologous Red Blood Cells into Peripheral Vein, Percutaneous Approach (ICD-10-PCS; 2020-07-04)
DX: I13.2 Hypertensive heart and chronic kidney disease with heart failure and with stage 5 chronic kidney disease, or end stage renal disease (principal); R57.0 Cardiogenic shock; I21.A1 Myocardial infarction type 2; I50.23 Acute on chronic systolic (congestive) heart failure; N18.6 End stage renal disease; I47.2 Ventricular tachycardia; E11.22 Type 2 diabetes mellitus with diabetic chronic kidney disease; J44.9 Chronic obstructive pulmonary disease, unspecified; I25.10 Atherosclerotic heart disease of native coronary artery without angina pectoris; I95.9 Hypotension, unspecified; F32.9 Major depressive disorder, single episode, unspecified; K21.9 Gastro-esophageal reflux disease without esophagitis; E78.5 Hyperlipidemia, unspecified; D63.8 Anemia in other chronic diseases classified elsewhere; Z99.2 Dependence on renal dialysis; Z91.048 Other nonmedicinal substance allergy status; Z79.82 Long term (current) use of aspirin; Z79.84 Long term (current) use of oral hypoglycemic drugs; Z98.49 Cataract extraction status, unspecified eye; Z90.49 Acquired absence of other specified parts of digestive tract; Z86.19 Personal history of other infectious and parasitic diseases; Z82.3 Family history of stroke; Z95.5 Presence of coronary angioplasty implant and graft; Z82.49 Family history of ischemic heart disease and other diseases of the circulatory system; Z87.891 Personal history of nicotine dependence; Z95.1 Presence of aortocoronary bypass graft
CPT/HCPCS: 0240U; 36415; 36416; 36430; 71045; 80048; 80053; 82553; 83036; 83735; 83880; 84100; 84443; 84484; 85025; 86850; 86900; 86901; 90935; 93005; 93306; 96365; G0257; J1250; J1644; J1815; J3475; P9016

== ENCOUNTER 2020-09-28 11:42 | Outpatient (CLI) | payer MEDICARE, MEDICAID | END 2020-09-28 11:43 | disposition home or self-care (01) | LOC: RAD 11:42 | PROVIDERS: ATTEND Specialist | DX: M79.642 Pain in left hand (principal); N18.6 End stage renal disease ==

== ENCOUNTER 2020-10-02 12:41 | Outpatient (CLI) | payer MEDICARE, MEDICAID ==
[2019-11-22 12:08] LABS: SARS-CoV-2 MS2 Positive; SARS-CoV-2 N Gene Negative; SARS-CoV-2 S Gene Negative; SARS-CoV-2 by NAA Not Detected (NotDetected); SARS-CoV-2 orf1ab Negative
[2020-10-02 15:22] LABS: #Basophils 0.1 10x3/uL (0.0-0.2); #Eosinphils 0.7 10x3/uL (0.0-0.5); #Monocytes 0.6 10x3/uL (0.0-1.1); %Basophils 0.6 % (0.0-2.0); %Eosinophils 6.9 % (0.0-6.0); %Lymphocytes 11.3 % (18.0-47.0); %Monocytes 6.5 % (0.0-10.0); Hemoglobin 8.2 g/dL (13.5-17.5); Mean Corpuscular HGB CONC 28.5 g/dL (32.0-36.0); Mean Corpuscular Hemoglobin 26.1 pg (27.0-33.0); Mean Corpuscular Volume 91.7 fl (81.2-95.1); Mean Platelet Volume 10.2 fl (7.4-10.4); Platelet Count 383 10x3/uL (150-450); RBC Distribution Width 17.1 % (11.5-14.5); Red Blood Cell (RBC) Count 3.14 10x6/uL (4.32-5.72); White Blood Cell (WBC) Count 9.4 10x3/uL (3.5-10.5)
[2020-10-02 15:54] LABS: Anion Gap 25 mmol/L (10-20); BUN (Urea Nitrogen) 77 mg/dL (8.4-25.7); Calc. Creatinine Clearance 0 mL/min (70-130); Calcium 7.9 mg/dL (7.8-10.44); Carbon Dioxide 23 mmol/L (22-29); Chloride 92 mmol/L (98-107); Glucose 131 mg/dL (70-105); Potassium 5.3 mmol/L (3.5-5.1); Sodium 135 mmol/L (136-145)
[2020-10-02 17:34] LABS: Platelet Morphology Comment Appears Adequate
[2020-10-02 17:37] LABS: Anisocytosis SLIGHT = 6-15 cells (100X) (0-5/hpf); Elliptocytes SLIGHT = 2-5 cells (100X) (0-1/hpf); Hypochromia SLIGHT = 6-15 cells (100X) (0-5/hpf); Macrocytosis SLIGHT = 6-15 cells (100X) (0-5/hpf); Microcytosis SLIGHT = 6-15 cells (100X) (0-5/hpf); Polychromasia SLIGHT = 2-3 cells (100X) (0-2/hpf)
[2020-10-03 12:07] LABS: SARS-CoV-2 PCR by NAA Not Detected (NotDetected)
== END 2020-10-02 12:42 | disposition home or self-care (01) ==
LOC: LABBT 12:41
PROVIDERS: ATTEND Specialist
DX: Z01.818 Encounter for other preprocedural examination (principal); N18.6 End stage renal disease
CPT/HCPCS: 80048; 85025; 93005; U0003 ×2; U0005; 93010

== ENCOUNTER 2021-01-30 16:54 | Outpatient (CLI) | payer MEDICARE, MEDICAID ==
[2021-01-30 17:37] LABS: Hemoglobin 12.1 g/dL (13.5-17.5); Mean Corpuscular HGB CONC 29.6 g/dL (32.0-36.0); Mean Corpuscular Hemoglobin 28.5 pg (27.0-33.0); Mean Corpuscular Volume 96.2 fl (81.2-95.1); Mean Platelet Volume 9.9 fl (7.4-10.4); Platelet Count 346 10x3/uL (150-450); RBC Distribution Width 15.6 % (11.5-14.5); Red Blood Cell (RBC) Count 4.25 10x6/uL (4.32-5.72); White Blood Cell (WBC) Count 8.7 10x3/uL (3.5-10.5)
[2021-01-30 17:50] LABS: Anion Gap 16 mmol/L (10-20); BUN (Urea Nitrogen) 27 mg/dL (8.4-25.7); Calc. Creatinine Clearance 0 mL/min (70-130); Calcium 9.7 mg/dL (7.8-10.44); Carbon Dioxide 31 mmol/L (22-29); Chloride 94 mmol/L (98-107); Glucose 154 mg/dL (70-105); Potassium 4.3 mmol/L (3.5-5.1); Sodium 137 mmol/L (136-145)
[2021-01-31 15:34] LABS: SARS-CoV-2 PCR by NAA Not Detected (NotDetected)
== END 2021-01-30 16:55 | disposition home or self-care (01) ==
LOC: LABBT 16:54
PROVIDERS: ATTEND Thoracic Surgery (Cardiothoracic Vascular Surgery)
DX: Z01.812 Encounter for preprocedural laboratory examination (principal); Z20.822 Contact with and (suspected) exposure to COVID-19
CPT/HCPCS: 80048; 85027; U0003; U0005

== ENCOUNTER 2021-02-03 08:55 | Day surgery (SDC) | payer OTHER, MEDICARE ==
[2021-02-02 11:14] VITALS: BMI 22.9
[2021-02-03] MEDS ORDERED: Lidocaine 1% (PF) 30 ML VIAL ONE (10:05)
[2021-02-03] MEDS ORDERED: Midazolam HCl 2 mg/2 ml Vial ONE (10:40)
[2021-02-03] MEDS ORDERED: Fentanyl 100 MCG/2 ML VIAL ONE ×2 (10:40→13:32)
[2021-02-03] MEDS ORDERED: Iopamidol 370 76% 100 ML VIAL ONE (13:11)
== END 2021-02-03 18:22 | disposition home or self-care (01) ==
LOC: SDC 08:55
PROVIDERS: ATTEND Thoracic Surgery (Cardiothoracic Vascular Surgery)
PROC: B3101ZZ Fluoroscopy of Thoracic Aorta using Low Osmolar Contrast (ICD-10-PCS; principal; 2021-02-03)
PROC: B41D1ZZ Fluoroscopy of Aorta and Bilateral Lower Extremity Arteries using Low Osmolar Contrast (ICD-10-PCS; principal; 2021-02-03)
DX: I70.202 Unspecified atherosclerosis of native arteries of extremities, left leg (principal); I70.208 Unspecified atherosclerosis of native arteries of extremities, other extremity; I77.0 Arteriovenous fistula, acquired; Z79.01 Long term (current) use of anticoagulants; Z79.02 Long term (current) use of antithrombotics/antiplatelets; Z79.82 Long term (current) use of aspirin; Z79.899 Other long term (current) drug therapy
CPT/HCPCS: 36217; 36247; 75710; 75736; J2001; J2250; J3010; Q9967

== ENCOUNTER 2021-02-13 06:06 | Day surgery (SDC) | payer MEDICARE, OTHER ==
[2021-02-10 13:15] LABS: #Basophils 0.1 10x3/uL (0.0-0.2); #Eosinphils 0.7 10x3/uL (0.0-0.5); #Monocytes 0.7 10x3/uL (0.0-1.1); #Neutrophils 6.3 10x3/uL (1.5-8.4); %Basophils 1.3 % (0.0-2.0); %Eosinophils 7.1 % (0.0-6.0); %Lymphocytes 14.3 % (18.0-47.0); %Monocytes 7.9 % (0.0-10.0); %Neutrophils 69.1 % (40.0-75.0); Hemoglobin 10.8 g/dL (13.5-17.5); Mean Corpuscular HGB CONC 28.7 g/dL (32.0-36.0); Mean Corpuscular Hemoglobin 28.6 pg (27.0-33.0); Mean Corpuscular Volume 99.7 fl (81.2-95.1); Mean Platelet Volume 10.4 fl (7.4-10.4); Platelet Count 300 10x3/uL (150-450); Red Blood Cell (RBC) Count 3.77 10x6/uL (4.32-5.72); White Blood Cell (WBC) Count 9.2 10x3/uL (3.5-10.5)
[2021-02-10 13:41] LABS: Anisocytosis SLIGHT = 6-15 cells (100X) (0-5/hpf)
[2021-02-10 13:42] LABS: Platelet Morphology Comment Appears Adequate
[2021-02-10 13:52] LABS: Anion Gap 17 mmol/L (10-20); BUN (Urea Nitrogen) 24 mg/dL (8.4-25.7); Calc. Creatinine Clearance 0 mL/min (70-130); Calcium 9.2 mg/dL (7.8-10.44); Carbon Dioxide 32 mmol/L (23-31); Chloride 95 mmol/L (98-107); Glucose 224 mg/dL (80-115); Potassium 4.4 mmol/L (3.5-5.1); Sodium 140 mmol/L (136-145)
[2021-02-10 23:30] LABS: SARS-CoV-2 PCR by NAA Not Detected (NotDetected)
[2021-02-11 16:50] VITALS: BMI 21.9
[2021-02-13] MEDS ORDERED: Lidocaine 1% w/Epinephrine 1:100K 20 ML VIAL ONE ×2 (06:45→07:20)
[2021-02-13] MEDS ORDERED: Heparin 5,000 UNITS/ML VIAL ONE (06:45)
[2021-02-13] MEDS ORDERED: Protamine Sulfate 50 MG/5 ML VIAL ONE (06:45)
[2021-02-13] MEDS ORDERED: Bupivacaine PF 0.5% 30 ML VIAL ONE ×2 (06:45→07:20)
[2021-02-13] MEDS ORDERED: CEFAZOLIN 1 GM VIAL ONE (07:15)
[2021-02-13] MEDS ORDERED: Sodium Chloride 0.9% 100 ML ONE (07:15)
[2021-02-13] MEDS ORDERED: Fentanyl 100 MCG/2 ML VIAL ONE ×2 (07:39→12:19)
[2021-02-13] MEDS ORDERED: Phenylephrine 10 MG/ML VIAL ONE ×2 (07:40→08:08)
[2021-02-13] MEDS ORDERED: Bupivacaine 0.25% 10 ML VIAL ONE (08:04)
[2021-02-13] MEDS ORDERED: Ondansetron PF 4 MG/2 ML Vial ONE (08:08)
[2021-02-13] MEDS ORDERED: Lidocaine 1% PF 5 ML VIAL ONE (08:08)
[2021-02-13] MEDS ORDERED: Dexamethasone 20 MG/5 ML VIAL ONE (08:08)
[2021-02-13] MEDS ORDERED: Bacitracin Zinc Ointment 30 gm TUBE ONE (11:16)
[2021-02-13] MEDS ORDERED: Vancomycin 1 GM/200 ML BAG ONE (13:06)
[2021-02-13] MEDS ORDERED: HYDROcodone/Acetaminophen 5/325 mg Tablet ONE (13:30)
[2021-02-13] MEDS ORDERED: Gentamicin Sulfate 80 MG in Premix Bag 1 BAG IVPB SCH (13:30)
[2021-02-13] MEDS ORDERED: Bacitracin 1 PK ONE ×2 (14:41)
== END 2021-02-13 16:17 | disposition home or self-care (01) ==
LOC: SDC 06:06
PROVIDERS: ATTEND Specialist
PROC: 03L80ZZ Occlusion of Left Brachial Artery, Open Approach (ICD-10-PCS; principal; 2021-02-13)
PROC: 0PBV0ZZ Excision of Left Finger Phalanx, Open Approach (ICD-10-PCS; 2021-02-13)
DX: I77.89 Other specified disorders of arteries and arterioles (principal); E11.51 Type 2 diabetes mellitus with diabetic peripheral angiopathy without gangrene; I70.208 Unspecified atherosclerosis of native arteries of extremities, other extremity; L03.012 Cellulitis of left finger; E11.69 Type 2 diabetes mellitus with other specified complication; M86.8X4 Other osteomyelitis, hand; I12.0 Hypertensive chronic kidney disease with stage 5 chronic kidney disease or end stage renal disease; E11.22 Type 2 diabetes mellitus with diabetic chronic kidney disease; N18.6 End stage renal disease; D63.1 Anemia in chronic kidney disease; I25.10 Atherosclerotic heart disease of native coronary artery without angina pectoris; J44.9 Chronic obstructive pulmonary disease, unspecified; E78.5 Hyperlipidemia, unspecified; K25.9 Gastric ulcer, unspecified as acute or chronic, without hemorrhage or perforation; N52.9 Male erectile dysfunction, unspecified; Z87.891 Personal history of nicotine dependence; Z79.01 Long term (current) use of anticoagulants; Z79.02 Long term (current) use of antithrombotics/antiplatelets; Z79.82 Long term (current) use of aspirin; Z79.899 Other long term (current) drug therapy; Z95.1 Presence of aortocoronary bypass graft; Z95.5 Presence of coronary angioplasty implant and graft; Z99.2 Dependence on renal dialysis; Z20.822 Contact with and (suspected) exposure to COVID-19
CPT/HCPCS: 26236; 36838; 80048; 85025; 86850; 86900; 86901; 93005; C1713; C1776; U0003; U0005; 93010; J0690; J1100; J1580; J1644; J2370; J2405; J2720; J3010; J3370; J3490; S0020

== ENCOUNTER 2021-03-13 14:50 | Inpatient (IN) | payer MEDICARE, OTHER ==
[2021-03-13 15:40] LABS: #Eosinphils 0.5 thou/uL (0.0-0.7); #Lymphocytes 1.4 thou/uL (1.20-3.40); #Monocytes 0.6 thou/uL (0.11-0.59); #Neutrophils 6.7 thou/uL (1.40-6.50); %Basophils 0.1 % (0.0-1.0); %Lymphocytes 14.7 % (21.0-51.0); %Neutrophils 73.1 % (42.0-75.0); Hemoglobin 11.7 g/dL (14.0-18.0); Mean Corpuscular HGB CONC 30.9 g/dL (32.0-36.0); Mean Corpuscular Hemoglobin 30.4 pg (27.0-31.0); Mean Corpuscular Volume 98.5 fL (78.0-98.0); Mean Platelet Volume 7.4 fL (7.4-10.4); Platelet Count 298 thou/uL (130-400); RBC Distribution Width 15.8 % (11.5-14.5); Red Blood Cell (RBC) Count 3.83 mill/uL (4.70-6.10); White Blood Cell (WBC) Count 9.2 thou/uL (4.8-10.8)
[2021-03-13 16:04] LABS: ALT (SGPT) Less than 7 U/L (8-55); AST (SGOT) 11 U/L (5-34); Albumin 3.8 g/dL (3.4-4.8); Alkaline Phosphatase 116 U/L (40-110); Anion Gap 20 mmol/L (10-20); BUN (Urea Nitrogen) 37 mg/dL (8.4-25.7); Bilirubin, Total 0.7 mg/dL (0.2-1.2); Calc. Creatinine Clearance 0 mL/min (70-130); Carbon Dioxide 28 mmol/L (23-31); Chloride 91 mmol/L (98-107); Globulin 4.1 g/dL (2.4-3.5); Glucose 277 mg/dL (80-115); Potassium 4.1 mmol/L (3.5-5.1); Protein, Total 7.9 g/dL (5.8-8.1); Sodium 135 mmol/L (136-145)
[2021-03-13] MEDS ORDERED: Morphine 4 MG/ML VIAL ONE (18:04)
[2021-03-13] MEDS ORDERED: Cefepime 2 GM VIAL ONE (18:12)
[2021-03-13] MEDS ORDERED: Vancomycin 1 GM/200 ML BAG ONE (19:11)
[2021-03-13] MEDS ORDERED: Dextrose 50% Abboject 50 ML SYRINGE SLOW IVP PRN (23:32)
[2021-03-13] MEDS ORDERED: Dextrose 5% in Water 1,000 ML IV PRN (23:32)
[2021-03-13] MEDS ORDERED: Guaifenesin DM 100-10/5 ML UDCUP PO PRN (23:32)
[2021-03-13] MEDS ORDERED: Acetaminophen 325 MG TAB PO PRN (23:32)
[2021-03-13] MEDS ORDERED: Nitroglycerin 0.4 MG TAB (25 Tab Bottle) SL PRN (23:34)
[2021-03-13] MEDS ORDERED: hydrALAZINE 20 MG/ML VIAL SLOW IVP PRN (23:35)
[2021-03-13] MEDS ORDERED: Vancomycin HCl 1.25 GM in Sodium Chloride 0.9% 250 ML 250 ML IVPB SCH (23:45)
[2021-03-13] MEDS ORDERED: HOLD VANCOMYCIN FOR LEVEL >20 FS SCH (23:45)
[2021-03-13] MEDS ORDERED: Vancomycin HCl 500 MG in Sodium Chloride 0.9% 100 ML IVPB SCH (23:45)
[2021-03-13] MEDS ORDERED: Vancomycin Sliding Scale 1 EACH FS ONE (23:45)
[2021-03-13] MEDS ORDERED: Vancomycin 1 GM in Premix Bag 1 BAG IVPB SCH (23:45)
[2021-03-14] MEDS: Morphine 4 MG/ML VIAL SLOW IVP PRN ×6 (00:21→23:49)
[2021-03-14] MEDS: Nicotine 14 MG PATCH TD SCH ×2 (00:51→23:50)
[2021-03-14 00:54] LABS: Hemoglobin 10.3 g/dL (14.0-18.0); Platelet Count 242 thou/uL (130-400)
[2021-03-14 07:37] LABS: ALT (SGPT) Less than 7 U/L (8-55); AST (SGOT) 10 U/L (5-34); Albumin 3.3 g/dL (3.4-4.8); Alkaline Phosphatase 96 U/L (40-110); Anion Gap 20 mmol/L (10-20); BUN (Urea Nitrogen) 43 mg/dL (8.4-25.7); Bilirubin, Total 0.7 mg/dL (0.2-1.2); Calc. Creatinine Clearance 11 mL/min (70-130); Calcium 9.7 mg/dL (7.8-10.44); Carbon Dioxide 26 mmol/L (23-31); Chloride 92 mmol/L (98-107); Globulin 3.7 g/dL (2.4-3.5); Glucose 173 mg/dL (80-115); Potassium 4.3 mmol/L (3.5-5.1); Sodium 134 mmol/L (136-145)
[2021-03-14 08:12] LABS: Anisocytosis SLIGHT = 6-15 cells (100X) (0-5/hpf); Band 3 % (5-11); Eosinophils 6 % (0-10); Hemoglobin 10.8 g/dL (14.0-18.0); Hypochromia SLIGHT = 6-15 cells (100X) (0-5/hpf); Lymphocytes 8 % (21-51); MDiff Complete? YES; Macrocytosis SLIGHT = 6-15 cells (100X) (0-5/hpf); Mean Corpuscular HGB CONC 31.3 g/dL (32.0-36.0); Mean Corpuscular Hemoglobin 31.3 pg (27.0-31.0); Mean Corpuscular Volume 99.8 fL (78.0-98.0); Mean Platelet Volume 7.5 fL (7.4-10.4); Monocytes 5 % (0-10); Neutrophil 71 % (42-75); Platelet Count 252 thou/uL (130-400); Platelet Morphology Comment Appears Adequate; Polychromasia SLIGHT = 2-3 cells (100X) (0-2/hpf); Reactive Lymphocytes 7 % (0-10); Red Blood Cell (RBC) Count 3.46 mill/uL (4.70-6.10); Target Cells SLIGHT = 2-5 cells (100X) (0-1/hpf); White Blood Cell (WBC) Count 7.9 thou/uL (4.8-10.8)
[2021-03-14] MEDS ORDERED: Piperacillin/Tazobactam 2.25 GM in Sodium Chloride 0.9% 100 ML IVPB SCH (08:30)
[2021-03-14] MEDS ORDERED: Piperacillin/Tazobactam 3.375 GM in Sodium Chloride 0.9% 100 ML IVPB SCH (08:45)
[2021-03-14] MEDS ORDERED: Clopidogrel Bisulfate 75 MG TAB PO SCH (09:00)
[2021-03-14] MEDS: Aspirin Chewable 81 MG TAB PO SCH (09:54)
[2021-03-14] MEDS: Gabapentin 300 MG CAP PO SCH ×3 (09:54→19:52)
[2021-03-14] MEDS: Lisinopril 5 MG TAB PO SCH (09:55)
[2021-03-14] MEDS: HYDROcodone/Acetaminophen 7.5/325 mg Tablet PO PRN ×3 (10:12→22:29)
[2021-03-14] MEDS: HumaLOG 300 UNITS/3 ML VIAL SC PRN (13:12)
[2021-03-14 17:15] LABS: Magnesium 1.8 mg/dL (1.6-2.6); Phosphorus 3.4 mg/dL (2.3-4.7)
[2021-03-14] MEDS: Piperacillin/Tazobactam 3.375 GM in Sodium Chloride 0.9% 100 ML IVPB SCH (19:51)
[2021-03-15 00:41] LABS: SARS-CoV-2 NAA Rapid Test Not Detected (NotDetected)
[2021-03-15] MEDS: Morphine 4 MG/ML VIAL SLOW IVP PRN ×6 (03:51→23:58)
[2021-03-15] MEDS: HYDROcodone/Acetaminophen 7.5/325 mg Tablet PO PRN ×5 (06:11→23:59)
[2021-03-15 07:40] LABS: Anion Gap 16 mmol/L (10-20); BUN (Urea Nitrogen) 24 mg/dL (8.4-25.7); Calc. Creatinine Clearance 17 mL/min (70-130); Calcium 9.6 mg/dL (7.8-10.44); Carbon Dioxide 30 mmol/L (23-31); Chloride 94 mmol/L (98-107); Glucose 122 mg/dL (80-115); Potassium 3.9 mmol/L (3.5-5.1); Sodium 136 mmol/L (136-145)
[2021-03-15] MEDS: Piperacillin/Tazobactam 3.375 GM in Sodium Chloride 0.9% 100 ML IVPB SCH ×2 (08:34→20:12)
[2021-03-15] MEDS: Clopidogrel Bisulfate 75 MG TAB PO SCH (08:36)
[2021-03-15] MEDS: Aspirin Chewable 81 MG TAB PO SCH (08:36)
[2021-03-15] MEDS: Gabapentin 300 MG CAP PO SCH ×3 (08:36→20:11)
[2021-03-15] MEDS: Lisinopril 5 MG TAB PO SCH (08:37)
[2021-03-15 10:36] LABS: Vancomycin, Random 9.4 ug/mL (See Comment)
[2021-03-15] MEDS: Nicotine 14 MG PATCH TD SCH (10:58)
[2021-03-15] MEDS ORDERED: Vancomycin HCl 500 MG in Sodium Chloride 0.9% 100 ML IVPB SCH (11:00)
[2021-03-15] MEDS: Carvedilol 3.125 MG TAB PO SCH (20:11)
[2021-03-15] MEDS: HumaLOG 300 UNITS/3 ML VIAL SC PRN (21:29)
[2021-03-15 23:58] LABS: Hemoglobin 10.9 g/dL (14.0-18.0); Platelet Count 273 thou/uL (130-400)
[2021-03-16] MEDS: Morphine 4 MG/ML VIAL SLOW IVP PRN ×2 (04:02→08:08)
[2021-03-16] MEDS: HYDROcodone/Acetaminophen 7.5/325 mg Tablet PO PRN ×2 (04:03→08:08)
[2021-03-16 08:33] LABS: #Basophils 0.1 thou/uL (0.0-0.2); #Eosinphils 0.7 thou/uL (0.0-0.7); #Lymphocytes 1.5 thou/uL (1.20-3.40); #Monocytes 0.7 thou/uL (0.11-0.59); #Neutrophils 5.7 thou/uL (1.40-6.50); %Basophils 0.7 % (0.0-1.0); %Eosinophils 8.2 % (0.0-10.0); %Lymphocytes 17.1 % (21.0-51.0); %Monocytes 7.7 % (0.0-10.0); %Neutrophils 66.3 % (42.0-75.0); Hemoglobin 11.6 g/dL (14.0-18.0); Mean Corpuscular Hemoglobin 31.2 pg (27.0-31.0); Mean Platelet Volume 7.7 fL (7.4-10.4); Platelet Count 277 thou/uL (130-400); RBC Distribution Width 15.6 % (11.5-14.5); Red Blood Cell (RBC) Count 3.71 mill/uL (4.70-6.10); White Blood Cell (WBC) Count 8.5 thou/uL (4.8-10.8)
[2021-03-16 08:38] LABS: Vancomycin, Random 13.2 ug/mL (See Comment)
[2021-03-16 08:42] LABS: ALT (SGPT) Less than 7 U/L (8-55); AST (SGOT) 13 U/L (5-34); Albumin 3.9 g/dL (3.4-4.8); Alkaline Phosphatase 97 U/L (40-110); Anion Gap 22 mmol/L (10-20); BUN (Urea Nitrogen) 39 mg/dL (8.4-25.7); Bilirubin, Total 0.8 mg/dL (0.2-1.2); Calc. Creatinine Clearance 13 mL/min (70-130); Calcium 9.9 mg/dL (7.8-10.44); Carbon Dioxide 26 mmol/L (23-31); Chloride 93 mmol/L (98-107); Globulin 3.5 g/dL (2.4-3.5); Glucose 123 mg/dL (80-115); Potassium 4.5 mmol/L (3.5-5.1); Protein, Total 7.4 g/dL (5.8-8.1); Sodium 136 mmol/L (136-145)
[2021-03-16] MEDS: Aspirin Chewable 81 MG TAB PO SCH (09:58)
[2021-03-16] MEDS: Gabapentin 300 MG CAP PO SCH ×3 (09:58→20:37)
[2021-03-16] MEDS: Clopidogrel Bisulfate 75 MG TAB PO SCH (09:58)
[2021-03-16] MEDS: Lisinopril 5 MG TAB PO SCH (09:58)
[2021-03-16] MEDS: Vancomycin HCl 750 MG in Sodium Chloride 0.9% 250 ML 250 ML IVPB SCH (10:40)
[2021-03-16] MEDS: Carvedilol 3.125 MG TAB PO SCH ×2 (13:29→18:00)
[2021-03-16] MEDS ORDERED: Bupivacaine 0.25% HCL 30 ML VIAL ONE (13:53)
[2021-03-16] MEDS ORDERED: Heparin 10,000 UNITS/ 10 ML VIAL ONE (13:53)
[2021-03-16] MEDS ORDERED: Sodium Chloride 0.9% 20 ML ONE (13:53)
[2021-03-16] MEDS ORDERED: Xylocaine 1% w/ Epi 1:100K 10 ML VIAL ONE (13:53)
[2021-03-16] MEDS ORDERED: EPINEPHrine 1 MG/ML AMP ONE (13:54)
[2021-03-16] MEDS ORDERED: HYDROmorphone 2 MG/ML VIAL ONE (13:58)
[2021-03-16] MEDS ORDERED: Fentanyl 100 MCG/2 ML VIAL ONE ×4 (13:58→18:51)
[2021-03-16] MEDS ORDERED: Midazolam HCl 2 mg/2 ml Vial ONE (13:58)
[2021-03-16] MEDS ORDERED: Sodium Chloride 0.9% 10 ML ONE (13:59)
[2021-03-16] MEDS: Piperacillin/Tazobactam 3.375 GM in Sodium Chloride 0.9% 100 ML IVPB SCH ×2 (14:05→15:39)
[2021-03-16] MEDS ORDERED: Ketamine 50 MG/ML (10ML VIAL) ONE (14:20)
[2021-03-16] MEDS ORDERED: Dexamethasone 20 MG/5 ML VIAL ONE (14:36)
[2021-03-16] MEDS ORDERED: ePHEDrine 50 MG/ML VIAL ONE (14:36)
[2021-03-16] MEDS ORDERED: Naloxone HCl 0.4 mg/ml Vial ONE (14:36)
[2021-03-16] MEDS ORDERED: PHENYLEPHRINE-NS 100 MCG/ML 10 ML SYRINGE ONE (14:36)
[2021-03-16] MEDS ORDERED: Lidocaine 1% PF 5 ML VIAL ONE (14:36)
[2021-03-16] MEDS ORDERED: Ondansetron PF 4 MG/2 ML Vial ONE (14:36)
[2021-03-16] MEDS ORDERED: ePHEDrine Sulfate 50 MG/10 ML VIAL ONE ×2 (15:06→15:23)
[2021-03-16] MEDS ORDERED: Ondansetron HCl/PF 4 MG/2 ML Vial IVP PRN (16:19)
[2021-03-16] MEDS ORDERED: Promethazine HCl 25 MG/ML VIAL IM PRN ×2 (16:19→17:30)
[2021-03-16] MEDS ORDERED: Promethazine HCl 25 MG/ML VIAL IVPB PRN (16:19)
[2021-03-16] MEDS ORDERED: Milk Of Magnesia 30 ML UDCUP PO PRN (16:46)
[2021-03-16] MEDS ORDERED: diphenhydrAMINE 50 MG/ML VIAL IM PRN (17:30)
[2021-03-16] MEDS ORDERED: diphenhydrAMINE 25 MG CAP PO PRN (17:30)
[2021-03-16] MEDS ORDERED: fentaNYL Citrate/PF 2,000 MCG in Sodium Chloride 0.9% 60 ML IV PRN (17:30)
[2021-03-16] MEDS ORDERED: Communication Order-Pharmacy FS SCH (17:30)
[2021-03-16] MEDS ORDERED: Zolpidem Tartrate 5 MG TAB PO PRN (17:30)
[2021-03-16] MEDS ORDERED: Ondansetron PF 4 MG/2 ML Vial IVP PRN (17:30)
[2021-03-16] MEDS ORDERED: diphenhydrAMINE 50 MG/ML VIAL IVP PRN (17:30)
[2021-03-16] MEDS ORDERED: Naloxone HCl 0.4 mg/ml Vial IV PRN (17:30)
[2021-03-16] MEDS ORDERED: Carvedilol 3.125 MG TAB ONE (17:57)
[2021-03-16] MEDS ORDERED: Fentanyl CADD 100 ML IVPB SCH (18:00)
[2021-03-16] MEDS: Polyethylene Glycol 3350 17 GM Packet PO SCH (20:37)
[2021-03-16] MEDS: Citrucel 500 MG TAB PO SCH (20:38)
[2021-03-16] MEDS: Sodium Chloride 0.9% 1,000 ML IV SCH (20:39)
[2021-03-16 21:18] LABS: INR-International Normal Ratio 1.2; Prothrombin Time 15.4 sec (12.0-14.7)
[2021-03-16 21:19] LABS: PTT 42.6 sec (22.9-36.1)
[2021-03-16] MEDS: Nicotine 14 MG PATCH TD SCH ×2 (23:57)
[2021-03-17] MEDS: Piperacillin/Tazobactam 3.375 GM in Sodium Chloride 0.9% 100 ML IVPB SCH ×2 (03:05→14:11)
[2021-03-17] MEDS: Heparin 10,000 UNITS/ 10 ML VIAL SLOW IVP SCH (04:50)
[2021-03-17] MEDS: Heparin 25,000 units/D5W 500 ML IVPB SCH (05:11)
[2021-03-17 06:23] LABS: #Lymphocytes 0.9 thou/uL (1.20-3.40); #Monocytes 0.6 thou/uL (0.11-0.59); #Neutrophils 6.5 thou/uL (1.40-6.50); %Basophils 0.2 % (0.0-1.0); %Eosinophils 0.2 % (0.0-10.0); %Lymphocytes 11.1 % (21.0-51.0); %Monocytes 7.2 % (0.0-10.0); %Neutrophils 81.4 % (42.0-75.0); Hemoglobin 9.8 g/dL (14.0-18.0); Mean Corpuscular HGB CONC 30.7 g/dL (32.0-36.0); Mean Corpuscular Hemoglobin 30.9 pg (27.0-31.0); Mean Platelet Volume 7.7 fL (7.4-10.4); Platelet Count 243 thou/uL (130-400); RBC Distribution Width 15.4 % (11.5-14.5); Red Blood Cell (RBC) Count 3.17 mill/uL (4.70-6.10)
[2021-03-17 06:49] LABS: ALT (SGPT) 7 U/L (8-55); AST (SGOT) 29 U/L (5-34); Albumin 3.4 g/dL (3.4-4.8); Alkaline Phosphatase 81 U/L (40-110); Anion Gap 21 mmol/L (10-20); BUN (Urea Nitrogen) 32 mg/dL (8.4-25.7); Bilirubin, Total 0.8 mg/dL (0.2-1.2); Calc. Creatinine Clearance 17 mL/min (70-130); Calcium 9.7 mg/dL (7.8-10.44); Carbon Dioxide 26 mmol/L (23-31); Chloride 95 mmol/L (98-107); Globulin 3.7 g/dL (2.4-3.5); Glucose 177 mg/dL (80-115); Potassium 5.2 mmol/L (3.5-5.1); Protein, Total 7.1 g/dL (5.8-8.1); Sodium 137 mmol/L (136-145)
[2021-03-17] MEDS: HumaLOG 300 UNITS/3 ML VIAL SC PRN (07:02)
[2021-03-17] MEDS: Carvedilol 3.125 MG TAB PO SCH ×2 (08:51→16:19)
[2021-03-17] MEDS: Lisinopril 5 MG TAB PO SCH (08:51)
[2021-03-17] MEDS: Citrucel 500 MG TAB PO SCH ×2 (08:52→23:37)
[2021-03-17] MEDS: Gabapentin 300 MG CAP PO SCH ×3 (08:53→23:25)
[2021-03-17] MEDS: Clopidogrel Bisulfate 75 MG TAB PO SCH (08:54)
[2021-03-17] MEDS: Aspirin Chewable 81 MG TAB PO SCH (08:54)
[2021-03-17] MEDS: Polyethylene Glycol 3350 17 GM Packet PO SCH ×2 (08:55→23:37)
[2021-03-17] MEDS: HYDROcodone/Acetaminophen 7.5/325 mg Tablet PO PRN (09:30)
[2021-03-17] MEDS ORDERED: Sodium Chloride 0.9% 250 ML IV SCH (10:00)
[2021-03-17] MEDS ORDERED: Fentanyl 100 MCG/2 ML VIAL ONE (10:22)
[2021-03-17] MEDS ORDERED: Midazolam HCl 2 mg/2 ml Vial ONE (10:22)
[2021-03-17] MEDS: Albumin 25% 25 GM/100 ML BOT IVPB SCH (11:19)
[2021-03-17] MEDS: Sodium Chloride 0.9% 1,000 ML IV SCH ×2 (16:20→23:29)
[2021-03-17] MEDS ORDERED: Sodium Chloride 0.9% 500 ML IVPB SCH (21:30)
[2021-03-17 21:48] LABS: #Eosinphils 0.1 thou/uL (0.0-0.7); #Lymphocytes 0.7 thou/uL (1.20-3.40); #Monocytes 0.6 thou/uL (0.11-0.59); #Neutrophils 8.5 thou/uL (1.40-6.50); %Eosinophils 0.6 % (0.0-10.0); %Lymphocytes 7.1 % (21.0-51.0); %Monocytes 5.8 % (0.0-10.0); %Neutrophils 86.4 % (42.0-75.0); Hemoglobin 9.6 g/dL (14.0-18.0); Mean Corpuscular HGB CONC 29.9 g/dL (32.0-36.0); Mean Corpuscular Hemoglobin 30.4 pg (27.0-31.0); Platelet Count 226 thou/uL (130-400); RBC Distribution Width 15.4 % (11.5-14.5); Red Blood Cell (RBC) Count 3.14 mill/uL (4.70-6.10); White Blood Cell (WBC) Count 9.9 thou/uL (4.8-10.8)
[2021-03-17 22:34] LABS: CKMB 19.8 ng/mL (0-6.6)
[2021-03-17] MEDS ORDERED: Norepinephrine 8 MG/0.9% NS 250 ML ONE (22:35)
[2021-03-17] MEDS: Norepinephrine 8 MG/0.9% NS 250 ML IVPB SCH (23:07)
[2021-03-17 23:30] LABS: Hemoglobin 10.3 g/dL (14.0-18.0); Platelet Count 226 thou/uL (130-400)
[2021-03-17] MEDS ORDERED: Cefepime 2 GM in Sodium Chloride 0.9% 100 ML IVPB SCH (23:30)
[2021-03-17 23:47] LABS: Lactic Acid 5.4 mmol/L (0.5-2.2)
[2021-03-17 23:51] LABS: ALT (SGPT) 1146 U/L (8-55); AST (SGOT) 2502 U/L (5-34); Albumin 3.7 g/dL (3.4-4.8); Alkaline Phosphatase 101 U/L (40-110); Anion Gap 28 mmol/L (10-20); BUN (Urea Nitrogen) 45 mg/dL (8.4-25.7); Bilirubin, Total 1.6 mg/dL (0.2-1.2); Calc. Creatinine Clearance 14 mL/min (70-130); Calcium 9.2 mg/dL (7.8-10.44); Carbon Dioxide 20 mmol/L (23-31); Chloride 96 mmol/L (98-107); Globulin 3.1 g/dL (2.4-3.5); Glucose 87 mg/dL (80-115); Potassium 6.3 mmol/L (3.5-5.1); Protein, Total 6.8 g/dL (5.8-8.1); Sodium 138 mmol/L (136-145)
[2021-03-18] MEDS: Nicotine 14 MG PATCH TD SCH (00:41)
[2021-03-18] MEDS ORDERED: Insulin Regular 300 UNITS/3 ML VIAL IVP SCH (01:30)
[2021-03-18] MEDS ORDERED: Dextrose 50% Abboject 50 ML SYRINGE SLOW IVP SCH (01:30)
[2021-03-18] MEDS ORDERED: Sodium Bicarb 50 MEQ/50 ML Abboject 8.4% SYRINGE IVP SCH (01:30)
[2021-03-18] MEDS ORDERED: Calcium Gluc 4.6 MEQ/10 ML (100 MG/ML) SLOW IVP SCH (01:30)
[2021-03-18] MEDS: Piperacillin/Tazobactam 3.375 GM in Sodium Chloride 0.9% 100 ML IVPB SCH ×2 (02:46→15:59)
[2021-03-18 03:48] LABS: Anion Gap 24 mmol/L (10-20); BUN (Urea Nitrogen) 47 mg/dL (8.4-25.7); Calc. Creatinine Clearance 14 mL/min (70-130); Calcium 9.5 mg/dL (7.8-10.44); Carbon Dioxide 24 mmol/L (23-31); Chloride 95 mmol/L (98-107); Glucose 137 mg/dL (80-115); Sodium 138 mmol/L (136-145)
[2021-03-18 03:49] LABS: Lactic Acid 3.3 mmol/L (0.5-2.2)
[2021-03-18] MEDS: Heparin 10,000 UNITS/ 10 ML VIAL SLOW IVP SCH ×2 (05:49→22:42)
[2021-03-18 07:19] LABS: ALT (SGPT) 1729 U/L (8-55); Albumin 3.4 g/dL (3.4-4.8); Alkaline Phosphatase 99 U/L (40-110); Bilirubin, Direct 1.1 mg/dL (0.1-0.3); Bilirubin, Total 1.5 mg/dL (0.2-1.2); Protein, Total 6.5 g/dL (5.8-8.1)
[2021-03-18 07:36] LABS: Troponin I 14.131 ng/mL (< 0.028)
[2021-03-18 07:39] LABS: AST (SGOT) Greater than 3500 U/L (5-34)
[2021-03-18] MEDS: Polyethylene Glycol 3350 17 GM Packet PO SCH ×2 (08:29→20:45)
[2021-03-18] MEDS: Clopidogrel Bisulfate 75 MG TAB PO SCH (08:29)
[2021-03-18] MEDS: Gabapentin 300 MG CAP PO SCH ×3 (08:29→20:44)
[2021-03-18] MEDS: Aspirin Chewable 81 MG TAB PO SCH (08:29)
[2021-03-18] MEDS: Citrucel 500 MG TAB PO SCH ×2 (08:30→20:45)
[2021-03-18] MEDS: Carvedilol 3.125 MG TAB PO SCH ×2 (08:30→16:00)
[2021-03-18] MEDS: Lisinopril 5 MG TAB PO SCH (08:30)
[2021-03-18] MEDS: Heparin 25,000 units/D5W 500 ML IVPB SCH (11:32)
[2021-03-18] MEDS: Albumin 25% 25 GM/100 ML BOT IVPB SCH (11:41)
[2021-03-18] MEDS ORDERED: Fentanyl 100 MCG/2 ML VIAL SLOW IVP PRN (12:37)
[2021-03-18] MEDS ORDERED: Fentanyl 100 MCG/2 ML VIAL ONE (13:28)
[2021-03-18 13:33] LABS: Vancomycin, Random 13.3 ug/mL (See Comment)
[2021-03-18] MEDS ORDERED: Vancomycin HCl 750 MG in Sodium Chloride 0.9% 250 ML 250 ML IVPB SCH (14:30)
[2021-03-18] MEDS ORDERED: Cefepime 0.5 GM, Admixture Fee 1 EACH in Sodium Chloride 0.9% 100 ML IVPB SCH (15:00)
[2021-03-18] MEDS: Fentanyl 100 MCG/2 ML VIAL SLOW IVP PRN (15:34)
[2021-03-19] MEDS: Nicotine 14 MG PATCH TD SCH ×2 (00:17→23:27)
[2021-03-19] MEDS: Sodium Chloride 0.9% 1,000 ML IV SCH ×2 (00:26→13:57)
[2021-03-19] MEDS: Piperacillin/Tazobactam 3.375 GM in Sodium Chloride 0.9% 100 ML IVPB SCH ×2 (02:31→13:57)
[2021-03-19] MEDS: Norepinephrine 8 MG/0.9% NS 250 ML IVPB SCH (02:32)
[2021-03-19] MEDS: Fentanyl 100 MCG/2 ML VIAL SLOW IVP PRN ×5 (02:37→22:16)
[2021-03-19 05:32] LABS: #Eosinphils 0.3 thou/uL (0.0-0.7); #Lymphocytes 1.4 thou/uL (1.20-3.40); #Monocytes 0.4 thou/uL (0.11-0.59); #Neutrophils 7.6 thou/uL (1.40-6.50); %Basophils 0.2 % (0.0-1.0); %Eosinophils 3.5 % (0.0-10.0); %Lymphocytes 14.4 % (21.0-51.0); %Monocytes 4.5 % (0.0-10.0); %Neutrophils 77.4 % (42.0-75.0); Hemoglobin 9.4 g/dL (14.0-18.0); Mean Corpuscular HGB CONC 31.8 g/dL (32.0-36.0); Mean Corpuscular Hemoglobin 31.7 pg (27.0-31.0); Mean Corpuscular Volume 99.4 fL (78.0-98.0); Mean Platelet Volume 8.1 fL (7.4-10.4); Platelet Count 183 thou/uL (130-400); RBC Distribution Width 15.5 % (11.5-14.5); Red Blood Cell (RBC) Count 2.97 mill/uL (4.70-6.10); White Blood Cell (WBC) Count 9.8 thou/uL (4.8-10.8)
[2021-03-19 06:01] LABS: ALT (SGPT) 2170 U/L (8-55); AST (SGOT) 2697 U/L (5-34); Albumin 3.2 g/dL (3.4-4.8); Alkaline Phosphatase 135 U/L (40-110); Anion Gap 16 mmol/L (10-20); BUN (Urea Nitrogen) 26 mg/dL (8.4-25.7); Bilirubin, Total 1.4 mg/dL (0.2-1.2); Calc. Creatinine Clearance 19 mL/min (70-130); Calcium 8.6 mg/dL (7.8-10.44); Carbon Dioxide 30 mmol/L (23-31); Chloride 95 mmol/L (98-107); Glucose 145 mg/dL (80-115); Magnesium 2.1 mg/dL (1.6-2.6); Phosphorus 4.8 mg/dL (2.3-4.7); Potassium 3.9 mmol/L (3.5-5.1); Protein, Total 6.2 g/dL (5.8-8.1); Sodium 137 mmol/L (136-145)
[2021-03-19] MEDS: Heparin 25,000 units/D5W 500 ML IVPB SCH (07:01)
[2021-03-19] MEDS: Heparin 10,000 UNITS/ 10 ML VIAL SLOW IVP SCH ×2 (07:05→18:35)
[2021-03-19] MEDS: Polyethylene Glycol 3350 17 GM Packet PO SCH ×2 (09:00→20:20)
[2021-03-19] MEDS: HYDROcodone/Acetaminophen 10/325 mg Tablet PO PRN ×4 (09:04→21:39)
[2021-03-19] MEDS: Lisinopril 5 MG TAB PO SCH (09:15)
[2021-03-19] MEDS: Citrucel 500 MG TAB PO SCH ×2 (09:16→20:19)
[2021-03-19] MEDS: Gabapentin 300 MG CAP PO SCH ×3 (09:16→20:19)
[2021-03-19] MEDS: Clopidogrel Bisulfate 75 MG TAB PO SCH (09:16)
[2021-03-19] MEDS: Aspirin Chewable 81 MG TAB PO SCH (09:16)
[2021-03-19] MEDS: Carvedilol 3.125 MG TAB PO SCH ×2 (09:16→17:47)
[2021-03-19 14:43] LABS: PTT 143.8 sec (22.9-36.1)
[2021-03-20 00:09] LABS: Hemoglobin 9.4 g/dL (14.0-18.0); Platelet Count 160 thou/uL (130-400)
[2021-03-20 00:58] LABS: PTT 137.8 sec (22.9-36.1)
[2021-03-20] MEDS: Piperacillin/Tazobactam 3.375 GM in Sodium Chloride 0.9% 100 ML IVPB SCH ×2 (01:40→13:19)
[2021-03-20] MEDS: HYDROcodone/Acetaminophen 10/325 mg Tablet PO PRN ×4 (01:40→21:07)
[2021-03-20] MEDS: Fentanyl 100 MCG/2 ML VIAL SLOW IVP PRN ×4 (03:08→21:37)
[2021-03-20] MEDS: Sodium Chloride 0.9% 1,000 ML IV SCH (03:22)
[2021-03-20 03:35] LABS: #Eosinphils 0.3 thou/uL (0.0-0.7); #Lymphocytes 1.2 thou/uL (1.20-3.40); #Monocytes 0.4 thou/uL (0.11-0.59); #Neutrophils 7.6 thou/uL (1.40-6.50); %Basophils 0.1 % (0.0-1.0); %Eosinophils 3.3 % (0.0-10.0); %Lymphocytes 12.7 % (21.0-51.0); %Monocytes 4.5 % (0.0-10.0); %Neutrophils 79.3 % (42.0-75.0); Hemoglobin 8.9 g/dL (14.0-18.0); Mean Corpuscular HGB CONC 30.3 g/dL (32.0-36.0); Mean Corpuscular Hemoglobin 30.3 pg (27.0-31.0); Mean Platelet Volume 7.8 fL (7.4-10.4); Platelet Count 150 thou/uL (130-400); RBC Distribution Width 15.6 % (11.5-14.5); Red Blood Cell (RBC) Count 2.95 mill/uL (4.70-6.10); White Blood Cell (WBC) Count 9.6 thou/uL (4.8-10.8)
[2021-03-20 04:26] LABS: ALT (SGPT) 1439 U/L (8-55); AST (SGOT) 980 U/L (5-34); Albumin 2.9 g/dL (3.4-4.8); Alkaline Phosphatase 128 U/L (40-110); Anion Gap 18 mmol/L (10-20); BUN (Urea Nitrogen) 34 mg/dL (8.4-25.7); Bilirubin, Total 1.5 mg/dL (0.2-1.2); Calc. Creatinine Clearance 15 mL/min (70-130); Calcium 8.5 mg/dL (7.8-10.44); Carbon Dioxide 26 mmol/L (23-31); Chloride 94 mmol/L (98-107); Globulin 2.8 g/dL (2.4-3.5); Glucose 119 mg/dL (80-115); Phosphorus 5.9 mg/dL (2.3-4.7); Potassium 3.8 mmol/L (3.5-5.1); Protein, Total 5.7 g/dL (5.8-8.1); Sodium 134 mmol/L (136-145)
[2021-03-20] MEDS: Heparin 25,000 units/D5W 500 ML IVPB SCH (05:47)
[2021-03-20] MEDS: Citrucel 500 MG TAB PO SCH ×2 (08:16→21:10)
[2021-03-20] MEDS: Gabapentin 300 MG CAP PO SCH ×2 (08:22→17:54)
[2021-03-20] MEDS: Aspirin Chewable 81 MG TAB PO SCH (08:22)
[2021-03-20] MEDS: Clopidogrel Bisulfate 75 MG TAB PO SCH (08:22)
[2021-03-20] MEDS: Lisinopril 5 MG TAB PO SCH ×2 (08:23→09:31)
[2021-03-20] MEDS: Carvedilol 3.125 MG TAB PO SCH (08:23)
[2021-03-20] MEDS: Polyethylene Glycol 3350 17 GM Packet PO SCH ×2 (09:22→21:14)
[2021-03-20 12:08] LABS: Vancomycin, Random 13.4 ug/mL (See Comment)
[2021-03-20] MEDS: Heparin 5,000 UNITS/ML VIAL SC SCH ×2 (13:10→21:11)
[2021-03-20] MEDS: Vancomycin HCl 750 MG in Sodium Chloride 0.9% 250 ML 250 ML IVPB SCH (13:19)
[2021-03-20] MEDS ORDERED: Sodium Chloride 0.9% 1,000 ML IV SCH (19:45)
[2021-03-20] MEDS: Gabapentin 400 MG CAP PO SCH (21:10)
[2021-03-21] MEDS: Nicotine 14 MG PATCH TD SCH ×2 (00:03→21:58)
[2021-03-21] MEDS: Sodium Chloride 0.9% 1,000 ML IV SCH (02:13)
[2021-03-21] MEDS: HYDROcodone/Acetaminophen 10/325 mg Tablet PO PRN ×3 (02:24→22:19)
[2021-03-21 06:53] LABS: #Basophils 0.1 thou/uL (0.0-0.2); #Eosinphils 0.3 thou/uL (0.0-0.7); #Monocytes 0.7 thou/uL (0.11-0.59); #Neutrophils 5.3 thou/uL (1.40-6.50); %Basophils 0.7 % (0.0-1.0); %Eosinophils 4.7 % (0.0-10.0); %Lymphocytes 14.2 % (21.0-51.0); %Monocytes 8.9 % (0.0-10.0); %Neutrophils 71.5 % (42.0-75.0); Hemoglobin 9.6 g/dL (14.0-18.0); Mean Corpuscular HGB CONC 30.9 g/dL (32.0-36.0); Mean Corpuscular Hemoglobin 31.2 pg (27.0-31.0); Mean Platelet Volume 8.3 fL (7.4-10.4); Platelet Count 152 thou/uL (130-400); RBC Distribution Width 15.9 % (11.5-14.5); Red Blood Cell (RBC) Count 3.08 mill/uL (4.70-6.10); White Blood Cell (WBC) Count 7.4 thou/uL (4.8-10.8)
[2021-03-21 07:24] LABS: ALT (SGPT) 1069 U/L (8-55); AST (SGOT) 470 U/L (5-34); Albumin 2.9 g/dL (3.4-4.8); Alkaline Phosphatase 144 U/L (40-110); Anion Gap 19 mmol/L (10-20); BUN (Urea Nitrogen) 20 mg/dL (8.4-25.7); Calc. Creatinine Clearance 20 mL/min (70-130); Calcium 8.9 mg/dL (7.8-10.44); Carbon Dioxide 26 mmol/L (23-31); Chloride 96 mmol/L (98-107); Glucose 131 mg/dL (80-115); Magnesium 1.9 mg/dL (1.6-2.6); Phosphorus 4.3 mg/dL (2.3-4.7); Potassium 3.8 mmol/L (3.5-5.1); Protein, Total 5.9 g/dL (5.8-8.1); Sodium 137 mmol/L (136-145)
[2021-03-21] MEDS: Gabapentin 400 MG CAP PO SCH ×3 (09:15→21:57)
[2021-03-21] MEDS: Heparin 5,000 UNITS/ML VIAL SC SCH ×2 (09:15→21:56)
[2021-03-21] MEDS: Citrucel 500 MG TAB PO SCH ×2 (09:15→21:57)
[2021-03-21] MEDS: Clopidogrel Bisulfate 75 MG TAB PO SCH (09:16)
[2021-03-21] MEDS: Polyethylene Glycol 3350 17 GM Packet PO SCH ×2 (09:17→21:58)
[2021-03-21] MEDS: Lisinopril 5 MG TAB PO SCH (09:17)
[2021-03-21] MEDS: Aspirin Chewable 81 MG TAB PO SCH (09:17)
[2021-03-21] MEDS: Fentanyl 100 MCG/2 ML VIAL SLOW IVP PRN (12:25)
[2021-03-21 20:03] LABS: SARS-CoV-2 PCR by NAA Not Detected (NotDetected)
[2021-03-22 00:19] LABS: Hemoglobin 9.7 g/dL (14.0-18.0); Platelet Count 152 thou/uL (130-400)
[2021-03-22] MEDS: Gabapentin 400 MG CAP PO SCH ×3 (09:14→21:14)
[2021-03-22] MEDS: Citrucel 500 MG TAB PO SCH ×2 (09:14→21:12)
[2021-03-22] MEDS: Aspirin Chewable 81 MG TAB PO SCH (09:14)
[2021-03-22] MEDS: Clopidogrel Bisulfate 75 MG TAB PO SCH (09:14)
[2021-03-22] MEDS: Heparin 5,000 UNITS/ML VIAL SC SCH ×2 (09:15→21:12)
[2021-03-22] MEDS: Polyethylene Glycol 3350 17 GM Packet PO SCH ×2 (09:16→21:13)
[2021-03-22] MEDS: Lisinopril 5 MG TAB PO SCH (09:16)
[2021-03-22] MEDS ORDERED: Methylnaltrexone 12 MG/0.6 ML VIAL SC SCH (14:00)
[2021-03-22] MEDS: Fentanyl 100 MCG/2 ML VIAL SLOW IVP PRN (14:48)
[2021-03-22] MEDS: Docusate 100 MG CAP PO SCH (21:12)
[2021-03-22] MEDS: HYDROcodone/Acetaminophen 10/325 mg Tablet PO PRN (21:14)
[2021-03-23] MEDS: Nicotine 14 MG PATCH TD SCH (02:37)
[2021-03-23] MEDS: HYDROcodone/Acetaminophen 10/325 mg Tablet PO PRN ×4 (05:04→21:56)
[2021-03-23] MEDS: Gabapentin 400 MG CAP PO SCH ×3 (08:38→21:56)
[2021-03-23] MEDS: Aspirin Chewable 81 MG TAB PO SCH (08:39)
[2021-03-23] MEDS: Citrucel 500 MG TAB PO SCH ×2 (08:39→21:55)
[2021-03-23] MEDS: Lisinopril 5 MG TAB PO SCH (08:39)
[2021-03-23] MEDS: Heparin 5,000 UNITS/ML VIAL SC SCH ×2 (08:39→21:56)
[2021-03-23] MEDS: Docusate 100 MG CAP PO SCH (08:39)
[2021-03-23] MEDS: Clopidogrel Bisulfate 75 MG TAB PO SCH (08:39)
[2021-03-23] MEDS: Polyethylene Glycol 3350 17 GM Packet PO SCH (08:40)
[2021-03-23] MEDS ORDERED: ceFAZolin 1 GM/D5W 1 GM in Premix Bag 1 BAG IVPB SCH (12:45)
[2021-03-23] MEDS: Apixaban 2.5 MG TAB PO SCH (21:55)
[2021-03-24] MEDS: Nicotine 14 MG PATCH TD SCH (04:03)
[2021-03-24] MEDS: HYDROcodone/Acetaminophen 10/325 mg Tablet PO PRN ×4 (04:03→20:32)
[2021-03-24 04:38] LABS: Hemoglobin 10.1 g/dL (14.0-18.0); Mean Corpuscular HGB CONC 30.6 g/dL (32.0-36.0); Platelet Count 156 thou/uL (130-400); RBC Distribution Width 17.4 % (11.5-14.5); Red Blood Cell (RBC) Count 3.24 mill/uL (4.70-6.10)
[2021-03-24 05:00] LABS: Anion Gap 16 mmol/L (10-20); BUN (Urea Nitrogen) 23 mg/dL (8.4-25.7); Calc. Creatinine Clearance 17 mL/min (70-130); Calcium 9.2 mg/dL (7.8-10.44); Carbon Dioxide 27 mmol/L (23-31); Chloride 94 mmol/L (98-107); Glucose 130 mg/dL (80-115); Potassium 4.2 mmol/L (3.5-5.1); Sodium 133 mmol/L (136-145)
[2021-03-24] MEDS: Clopidogrel Bisulfate 75 MG TAB PO SCH (09:07)
[2021-03-24] MEDS: Gabapentin 400 MG CAP PO SCH ×3 (09:07→20:31)
[2021-03-24] MEDS: Apixaban 2.5 MG TAB PO SCH ×2 (09:08→20:31)
[2021-03-24] MEDS: Heparin 5,000 UNITS/ML VIAL SC SCH (09:08)
[2021-03-24] MEDS: Citrucel 500 MG TAB PO SCH ×2 (09:10→23:59)
[2021-03-24] MEDS: Docusate 100 MG CAP PO SCH (09:10)
[2021-03-24] MEDS: Polyethylene Glycol 3350 17 GM Packet PO SCH (09:11)
[2021-03-24] MEDS: Lisinopril 5 MG TAB PO SCH (09:11)
[2021-03-24] MEDS: Aspirin Chewable 81 MG TAB PO SCH (09:11)
[2021-03-24 10:52] VITALS: BMI 24.0
[2021-03-24] MEDS: Triple Antibiotic Ointment 30 GM TUBE TOP SCH ×2 (13:57→20:33)
[2021-03-25] MEDS: HYDROcodone/Acetaminophen 10/325 mg Tablet PO PRN ×4 (00:19→14:33)
[2021-03-25] MEDS: Nicotine 14 MG PATCH TD SCH (00:19)
[2021-03-25] MEDS: Gabapentin 400 MG CAP PO SCH ×3 (08:27→21:00)
[2021-03-25] MEDS: Triple Antibiotic Ointment 30 GM TUBE TOP SCH ×2 (08:31→21:00)
[2021-03-25] MEDS ORDERED: CEFAZOLIN 1 GM in Sodium Chloride 0.9% 100 ML IVPB SCH (10:45)
[2021-03-25] MEDS: Citrucel 500 MG TAB PO SCH ×2 (11:04→21:00)
[2021-03-25] MEDS: Polyethylene Glycol 3350 17 GM Packet PO SCH (11:05)
[2021-03-25] MEDS: Docusate 100 MG CAP PO SCH (11:05)
[2021-03-25] MEDS: Clopidogrel Bisulfate 75 MG TAB PO SCH (14:33)
[2021-03-25] MEDS: Lisinopril 5 MG TAB PO SCH (14:33)
[2021-03-25] MEDS: Apixaban 2.5 MG TAB PO SCH ×2 (14:33→21:00)
[2021-03-25] MEDS: Aspirin Chewable 81 MG TAB PO SCH (14:33)
[2021-03-26] MEDS: Nicotine 14 MG PATCH TD SCH (00:22)
[2021-03-26] MEDS: HYDROcodone/Acetaminophen 10/325 mg Tablet PO PRN ×5 (00:22→18:59)
[2021-03-26 05:43] LABS: Anion Gap 17 mmol/L (10-20); BUN (Urea Nitrogen) 24 mg/dL (8.4-25.7); Calc. Creatinine Clearance 18 mL/min (70-130); Calcium 9.3 mg/dL (7.8-10.44); Carbon Dioxide 27 mmol/L (23-31); Chloride 94 mmol/L (98-107); Glucose 174 mg/dL (80-115); Potassium 3.8 mmol/L (3.5-5.1); Sodium 134 mmol/L (136-145)
[2021-03-26] MEDS: HumaLOG 300 UNITS/3 ML VIAL SC PRN (06:16)
[2021-03-26] MEDS: Apixaban 2.5 MG TAB PO SCH ×2 (09:06→19:48)
[2021-03-26] MEDS: Citrucel 500 MG TAB PO SCH ×2 (09:06→19:48)
[2021-03-26] MEDS: Clopidogrel Bisulfate 75 MG TAB PO SCH (09:06)
[2021-03-26] MEDS: Gabapentin 400 MG CAP PO SCH ×3 (09:06→19:49)
[2021-03-26] MEDS: Aspirin Chewable 81 MG TAB PO SCH (09:06)
[2021-03-26] MEDS: Docusate 100 MG CAP PO SCH (09:06)
[2021-03-26] MEDS: Lisinopril 5 MG TAB PO SCH (09:07)
[2021-03-26] MEDS: Polyethylene Glycol 3350 17 GM Packet PO SCH (09:07)
[2021-03-26] MEDS: Triple Antibiotic Ointment 30 GM TUBE TOP SCH ×2 (09:09→19:50)
[2021-03-26 17:33] VITALS: BP 140/63; TEMP 97.3
== END 2021-03-26 20:40 | DRG 239 ==
LOC: ERS 14:50 → SURG A 18:10 → CCU 03-17 22:18 → 2NO 03-20 23:56
PROVIDERS: ADMIT Family Medicine; ATTEND Internal Medicine
PROC: 0Y6J0Z1 Detachment at Left Lower Leg, High, Open Approach (ICD-10-PCS; principal; 2021-03-16)
PROC: 05HN33Z Insertion of Infusion Device into Left Internal Jugular Vein, Percutaneous Approach (ICD-10-PCS; 2021-03-16)
PROC: B544ZZA Ultrasonography of Left Jugular Veins, Guidance (ICD-10-PCS; 2021-03-16)
PROC: 5A1D70Z Performance of Urinary Filtration, Intermittent, Less than 6 Hours Per Day (ICD-10-PCS; 2021-03-16)
PROC: 3E033XZ Introduction of Vasopressor into Peripheral Vein, Percutaneous Approach (ICD-10-PCS; 2021-03-17)
DX: E11.52 Type 2 diabetes mellitus with diabetic peripheral angiopathy with gangrene (principal); N18.6 End stage renal disease; I50.23 Acute on chronic systolic (congestive) heart failure; I96 Gangrene, not elsewhere classified; I13.2 Hypertensive heart and chronic kidney disease with heart failure and with stage 5 chronic kidney disease, or end stage renal disease; I42.9 Cardiomyopathy, unspecified; Z20.822 Contact with and (suspected) exposure to COVID-19; E11.621 Type 2 diabetes mellitus with foot ulcer; D63.1 Anemia in chronic kidney disease; F17.210 Nicotine dependence, cigarettes, uncomplicated; L97.529 Non-pressure chronic ulcer of other part of left foot with unspecified severity; I25.10 Atherosclerotic heart disease of native coronary artery without angina pectoris; I48.0 Paroxysmal atrial fibrillation; K59.09 Other constipation; E11.22 Type 2 diabetes mellitus with diabetic chronic kidney disease; F11.90 Opioid use, unspecified, uncomplicated; E11.40 Type 2 diabetes mellitus with diabetic neuropathy, unspecified; I95.9 Hypotension, unspecified; Z91.15 Patient's noncompliance with renal dialysis; Z95.1 Presence of aortocoronary bypass graft; Z86.19 Personal history of other infectious and parasitic diseases; Z79.82 Long term (current) use of aspirin; Z79.01 Long term (current) use of anticoagulants; Z79.02 Long term (current) use of antithrombotics/antiplatelets; Z79.899 Other long term (current) drug therapy; Z99.2 Dependence on renal dialysis; Z90.49 Acquired absence of other specified parts of digestive tract; Z98.890 Other specified postprocedural states; I25.2 Old myocardial infarction; Z71.6 Tobacco abuse counseling
CPT/HCPCS: 36415; 36416; 71045; 74018; 80048; 80053; 80076; 80202; 82553; 83605; 83735; 83880; 84100; 84484; 85007; 85014; 85018; 85025; 85027; 85049; 85610; 85652; 85730; 86140; 87040; 88307; 88311; 90935; 93005; 93010; 93306; 96365; 96367; 96375; C1751; G0257; J0171; J0610; J0692; J1100; J1170; J1644; J1815; J2212; J2250; J2270; J2310; J2405; J2543; J3010; J3370; J3490; J7030; J7050; P9047; S0020; U0002; U0003; U0005

== ENCOUNTER 2021-04-28 12:30 | Inpatient (IN) | payer MEDICARE, OTHER ==
[2021-04-28] MEDS ORDERED: Dextrose 5% in Water 1,000 ML IV PRN (14:45)
[2021-04-28] MEDS ORDERED: Dextrose 50% Abboject 50 ML SYRINGE IVP PRN (14:45)
[2021-04-28] MEDS ORDERED: Insulin Regular 300 UNITS/3 ML VIAL SC PRN (14:45)
[2021-04-28 15:39] VITALS: BMI 22.6
[2021-04-28] MEDS ORDERED: FLU VACC QS2021-22(6MOS UP)/PF 60 MCG/0.5 ML SYRINGE IM ONE (16:00)
[2021-04-28] MEDS ORDERED: Cefepime 2 GM in Sodium Chloride 0.9% 100 ML IVPB SCH (16:00)
[2021-04-28 16:25] LABS: #Basophils 0.1 thou/uL (0.0-0.2); #Eosinphils 0.2 thou/uL (0.0-0.7); #Lymphocytes 1.6 thou/uL (1.20-3.40); #Monocytes 0.6 thou/uL (0.11-0.59); #Neutrophils 7.6 thou/uL (1.40-6.50); %Basophils 0.5 % (0.0-1.0); %Eosinophils 2.4 % (0.0-10.0); %Lymphocytes 15.6 % (21.0-51.0); %Monocytes 6.2 % (0.0-10.0); %Neutrophils 75.3 % (42.0-75.0); Hemoglobin 11.3 g/dL (14.0-18.0); Mean Corpuscular HGB CONC 30.7 g/dL (32.0-36.0); Mean Corpuscular Hemoglobin 32.3 pg (27.0-31.0); Mean Platelet Volume 8.2 fL (7.4-10.4); Platelet Count 204 thou/uL (130-400); RBC Distribution Width 15.2 % (11.5-14.5); Red Blood Cell (RBC) Count 3.51 mill/uL (4.70-6.10); White Blood Cell (WBC) Count 10.1 thou/uL (4.8-10.8)
[2021-04-28 16:41] LABS: ALT (SGPT) Less than 7 U/L (8-55); AST (SGOT) 13 U/L (5-34); Albumin 3.5 g/dL (3.4-4.8); Alkaline Phosphatase 144 U/L (40-110); Anion Gap 16 mmol/L (10-20); BUN (Urea Nitrogen) 29 mg/dL (8.4-25.7); Bilirubin, Total 0.8 mg/dL (0.2-1.2); Calc. Creatinine Clearance 16 mL/min (70-130); Calcium 9.7 mg/dL (7.8-10.44); Carbon Dioxide 31 mmol/L (23-31); Chloride 94 mmol/L (98-107); Globulin 3.6 g/dL (2.4-3.5); Glucose 135 mg/dL (80-115); Potassium 4.3 mmol/L (3.5-5.1); Protein, Total 7.1 g/dL (5.8-8.1); Sodium 137 mmol/L (136-145)
[2021-04-28 17:08] LABS: SARS-CoV-2 NAA Rapid Test Not Detected (NotDetected)
[2021-04-28] MEDS ORDERED: Cefepime 1 GM in Sodium Chloride 0.9% 100 ML IVPB SCH (17:15)
[2021-04-28] MEDS: HYDROcodone/Acetaminophen 7.5/325 mg Tablet PO PRN (17:58)
[2021-04-28] MEDS: Vancomycin 1.5 GRAM/300 ML BAG 1.5 GM in Premix Bag 1 BAG IVPB SCH ×2 (18:01→21:18)
[2021-04-28] MEDS ORDERED: Vancomycin 1.5 GRAM/300 ML BAG 1.5 GM in Premix Bag 1 BAG IVPB SCH (20:30)
[2021-04-28] MEDS: Morphine 4 MG/ML VIAL SLOW IVP PRN (21:27)
[2021-04-29] MEDS: HYDROcodone/Acetaminophen 7.5/325 mg Tablet PO PRN ×2 (00:37→21:28)
[2021-04-29 05:01] LABS: #Eosinphils 0.3 thou/uL (0.0-0.7); #Lymphocytes 1.8 thou/uL (1.20-3.40); #Monocytes 0.7 thou/uL (0.11-0.59); #Neutrophils 7.8 thou/uL (1.40-6.50); %Basophils 0.3 % (0.0-1.0); %Eosinophils 3.2 % (0.0-10.0); %Lymphocytes 16.6 % (21.0-51.0); %Monocytes 6.9 % (0.0-10.0); Hemoglobin 10.8 g/dL (14.0-18.0); Mean Corpuscular HGB CONC 31.1 g/dL (32.0-36.0); Mean Corpuscular Hemoglobin 32.8 pg (27.0-31.0); Mean Platelet Volume 8.3 fL (7.4-10.4); Platelet Count 186 thou/uL (130-400); RBC Distribution Width 15.1 % (11.5-14.5); Red Blood Cell (RBC) Count 3.29 mill/uL (4.70-6.10); White Blood Cell (WBC) Count 10.7 thou/uL (4.8-10.8)
[2021-04-29 05:20] LABS: Anion Gap 16 mmol/L (10-20); BUN (Urea Nitrogen) 35 mg/dL (8.4-25.7); Calc. Creatinine Clearance 15 mL/min (70-130); Calcium 9.2 mg/dL (7.8-10.44); Carbon Dioxide 29 mmol/L (23-31); Chloride 96 mmol/L (98-107); Glucose 190 mg/dL (80-115); Potassium 4.6 mmol/L (3.5-5.1); Sodium 136 mmol/L (136-145)
[2021-04-29 07:23] LABS: Vancomycin, Random 24.8 ug/mL (See Comment)
[2021-04-29] MEDS ORDERED: Vancomycin HCl 750 MG in Sodium Chloride 0.9% 250 ML 250 ML IVPB SCH (07:30)
[2021-04-29] MEDS ORDERED: Vancomycin HCl 1.25 GM in Sodium Chloride 0.9% 250 ML 250 ML IVPB SCH (07:30)
[2021-04-29] MEDS ORDERED: Vancomycin HCl 500 MG in Sodium Chloride 0.9% 100 ML IVPB SCH (07:30)
[2021-04-29] MEDS ORDERED: HOLD VANCOMYCIN FOR LEVEL >20 FS SCH (07:30)
[2021-04-29] MEDS ORDERED: Vancomycin 1 GM in Premix Bag 1 BAG IVPB SCH (07:30)
[2021-04-29] MEDS ORDERED: Lidocaine-Prilocaine 2.5% Cream 5 GM TUBE TOP PRN (08:32)
[2021-04-29] MEDS: Bacitracin 1 PK TOP SCH (08:48)
[2021-04-29] MEDS ORDERED: VANCOMYCIN HCL IVPB SCH (09:00)
[2021-04-29] MEDS ORDERED: SODIUM CHLORIDE 0.9% IVPB SCH (09:00)
[2021-04-29] MEDS: Morphine 4 MG/ML VIAL SLOW IVP PRN ×2 (09:45→14:59)
[2021-04-29 11:15] LABS: Syphilis Antibody Nonreactive (Nonreactive)
[2021-04-29] MEDS ORDERED: Dexmedetomidine 200 MCG/2 ML VIAL ONE (12:14)
[2021-04-29] MEDS ORDERED: Fentanyl 250 MCG/5 ML VIAL ONE (12:14)
[2021-04-29] MEDS ORDERED: Lidocaine 1% PF 5 ML VIAL ONE (12:33)
[2021-04-29] MEDS ORDERED: Ondansetron PF 4 MG/2 ML Vial ONE (12:33)
[2021-04-29] MEDS ORDERED: Metoclopramide HCl 10 MG/2 ML VIAL ONE (12:33)
[2021-04-29] MEDS ORDERED: ePHEDrine 50 MG/ML VIAL ONE (12:33)
[2021-04-29] MEDS ORDERED: PROPOFOL 200 MG/20 ML VIAL ONE (12:33)
[2021-04-29] MEDS: Cefepime 1 GM in Sodium Chloride 0.9% 100 ML IVPB SCH (21:28)
[2021-04-30] MEDS: HYDROcodone/Acetaminophen 7.5/325 mg Tablet PO PRN ×3 (07:15→22:03)
[2021-04-30] MEDS ORDERED: Iopamidol 370 76% 50 ML VIAL FS ONE (08:49)
[2021-04-30] MEDS ORDERED: Lidocaine 1% (PF) 30 ML VIAL ONE (08:50)
[2021-04-30] MEDS: Bacitracin 1 PK TOP SCH (09:59)
[2021-04-30] MEDS: Morphine 4 MG/ML VIAL SLOW IVP PRN (10:43)
[2021-04-30] MEDS: Cefepime 1 GM in Sodium Chloride 0.9% 100 ML IVPB SCH (16:35)
[2021-05-01] MEDS: HYDROcodone/Acetaminophen 7.5/325 mg Tablet PO PRN ×2 (04:41→13:19)
[2021-05-01 08:03] VITALS: BP 144/50; TEMP 98.1
[2021-05-01 08:18] LABS: Vancomycin, Random 14.1 ug/mL (See Comment)
[2021-05-01] MEDS: Bacitracin 1 PK TOP SCH (09:24)
[2021-05-01 12:39] LABS: HBSAB Concentration Less than 8.00 mIU/mL; Hep B Surf AB Non-Reactive (NonReactive)
== END 2021-05-01 16:50 | disposition home health service (06) | DRG 500 ==
LOC: SURG B 12:52 → SURG A 04-30 15:19
PROVIDERS: ADMIT Specialist; ATTEND Specialist
PROC: 0KBT0ZZ Excision of Left Lower Leg Muscle, Open Approach (ICD-10-PCS; principal; 2021-04-28)
PROC: 5A1D70Z Performance of Urinary Filtration, Intermittent, Less than 6 Hours Per Day (ICD-10-PCS; 2021-04-29)
PROC: B4101ZZ Fluoroscopy of Abdominal Aorta using Low Osmolar Contrast (ICD-10-PCS; 2021-04-30)
PROC: B41F1ZZ Fluoroscopy of Right Lower Extremity Arteries using Low Osmolar Contrast (ICD-10-PCS; 2021-04-30)
PROC: B31H1ZZ Fluoroscopy of Right Upper Extremity Arteries using Low Osmolar Contrast (ICD-10-PCS; 2021-04-30)
DX: T87.81 Dehiscence of amputation stump (principal); Z20.822 Contact with and (suspected) exposure to COVID-19; N18.6 End stage renal disease; I12.0 Hypertensive chronic kidney disease with stage 5 chronic kidney disease or end stage renal disease; E11.51 Type 2 diabetes mellitus with diabetic peripheral angiopathy without gangrene; I70.228 Atherosclerosis of native arteries of extremities with rest pain, other extremity; I70.221 Atherosclerosis of native arteries of extremities with rest pain, right leg; N48.5 Ulcer of penis; Y83.5 Amputation of limb(s) as the cause of abnormal reaction of the patient, or of later complication, without mention of misadventure at the time of the procedure; I25.10 Atherosclerotic heart disease of native coronary artery without angina pectoris; D63.1 Anemia in chronic kidney disease; J44.9 Chronic obstructive pulmonary disease, unspecified; E78.5 Hyperlipidemia, unspecified; K21.9 Gastro-esophageal reflux disease without esophagitis; I48.91 Unspecified atrial fibrillation; I70.8 Atherosclerosis of other arteries; F17.210 Nicotine dependence, cigarettes, uncomplicated; Z28.21 Immunization not carried out because of patient refusal; Z86.19 Personal history of other infectious and parasitic diseases; Z82.49 Family history of ischemic heart disease and other diseases of the circulatory system; Z95.5 Presence of coronary angioplasty implant and graft; Z98.890 Other specified postprocedural states; Z95.1 Presence of aortocoronary bypass graft; Z90.49 Acquired absence of other specified parts of digestive tract; Z79.899 Other long term (current) drug therapy; Z79.4 Long term (current) use of insulin; Z98.49 Cataract extraction status, unspecified eye; Z99.2 Dependence on renal dialysis; Z71.6 Tobacco abuse counseling
CPT/HCPCS: 36216; 36246; 36415; 36416; 75710; 80048; 80053; 80202; 85025; 86706; 86780; 86850; 86900; 86901; 90935; 93923; G0257; J0692; J1815; J2001; J2270; J2405; J2704; J2765; J3010; J3370; J3490; Q9967; U0002